=== PATIENT | male | born 1940 | race Caucasian/White ===

== ENCOUNTER 2019-07-07 10:26 | Outpatient (CLI) | payer MEDICARE, SELFPAY ==
--- NOTE | ~2019-07-07 | CT_ITS ---
EXAMINATION: CT abdomen pelvis wo con DATE: 07/07/2019 10:59 INDICATION: Dysuria. TECHNIQUE: Computed tomography (CT) of the abdomen and pelvis was performed without intravenous contr ast. Automated exposure control and iterative reconstruction technique were employed. The dose-length product was 459.56 mGy-cm. COMPARISON: CT abdomen and pelvis 10/08/2018 FINDINGS: The visualized portions of the lung bases demonstrate mild atelectasis. There is a pneumato chris in right middle lobe. A calcified right lung nodule is consistent with old granulomatous disease . No pleural effusion. There is a small sliding hiatal hernia. The heart size is normal. There are co ronary artery calcifications. There are pacer wires in right atrium and right ventricle. No pericardi al effusion. The liver, spleen, gallbladder, pancreas, adrenal glands, and right kidney are normal. T here is cortical thinning of left kidney. There is a 3 mm stone in left kidney. There are no dilated loops of bowel. The appendix is normal. There is diverticulosis of the colon without evidence of dive rticulitis. There are no pathologically enlarged lymph nodes. There is no free intraperitoneal fluid. There is severe lower lumbar spondylosis. There are chronic burst fractures of T7 and T8. IMPRESSION: 1. 3 mm nonobstructing left kidney stone. 2. Small sliding hiatal hernia. Reviewed, dictated and finalized at location B. 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
[2019-07-07 16:03] LABS: Basophils Absolute Auto 0.02 K/mm3 (0.00-0.10); Basophils Percent Auto 0.3 % (0.0-1.0); Eosinophils Percent Auto 1.3 % (1.0-6.0); Hematocrit 44.1 % (37.0-46.0); Hemoglobin 14.9 g/dL (12.4-15.3); Immature Granulocyte Absolute 0.03 K/mm3 (0.00-0.00); Immature Granulocyte Percent A 0.4 % (0.0-0.0); Lymphocytes Percent Auto 23.8 % (18.0-42.0); Mean Corpuscular HGB Conc 33.8 g/dL (32.0-36.0); Mean Corpuscular Hemoglobin 31.2 pg (27.0-31.0); Mean Corpuscular Volume 92.3 fL (78.0-102.0); Mean Platelet Volume 9.4 fl (8.7-11.0); Monocytes Absolute Auto 0.75 K/mm3 (0.10-0.90); Monocytes Percent Auto 9.4 % (2.0-11.0); Neutrophils Absolute Auto 5.2 K/mm3 (1.7-7.2); Neutrophils Percent Auto 64.8 % (50.0-70.0); Platelet Count Result 119 K/mm3 (150-420); Red Blood Count 4.78 M/mm3 (4.70-6.10); Red Cell Distribution Width 12.3 % (11.6-14.4)
[2019-07-07 19:09] LABS: Prostate Specific Antigen 0.5 ng/mL (< OR = 4.0)
== END 2019-07-07 10:27 | disposition home or self-care (01) ==
PROVIDERS: Visit Provider Nurse Practitioner Family
DX: R30.0 Dysuria (principal); N20.0 Calculus of kidney; Z87.442 Personal history of urinary calculi; N40.1 Benign prostatic hyperplasia with lower urinary tract symptoms
CPT/HCPCS: 36415; 74176; 84153; 85025; 87491; 87591

== ENCOUNTER 2019-10-26 07:16 | Outpatient (RCR) | payer MEDICARE, SELFPAY ==
[2019-08-31 07:27] LABS: INR 2.5; Prothrombin Time 26.3 Seconds (9.64-11.0)
[2019-09-28 07:26] LABS: INR 2.9; Prothrombin Time 28.5 Seconds (9.64-11.0)
[2019-10-26 07:38] LABS: INR 2.3; Prothrombin Time 23.6 Seconds (9.64-11.0)
== END 2019-11-29 23:59 | disposition home or self-care (01) ==
LOC: CHSLAB 07:16
PROVIDERS: PCP Internal Medicine; Visit Provider Internal Medicine
DX: Z79.01 Long term (current) use of anticoagulants (principal)
CPT/HCPCS: 36415; 85610

== ENCOUNTER 2019-12-01 07:37 | Outpatient (RCR) | payer MEDICARE, SELFPAY ==
[2019-12-01 07:59] LABS: INR 3.3; Prothrombin Time 32.6 Seconds (9.64-11.0)
== END 2020-02-29 23:59 | disposition home or self-care (01) ==
LOC: CHSLAB 07:37
PROVIDERS: PCP Internal Medicine; Visit Provider Internal Medicine
DX: Z79.01 Long term (current) use of anticoagulants (principal)
CPT/HCPCS: 36415; 85610

== ENCOUNTER 2020-01-12 07:12 | Outpatient (CLI) | payer MEDICARE, SELFPAY ==
[2020-01-12 07:27] LABS: Add Urine Microscopic? NO; Appearance Urine Clear (Clear); Basophils Absolute Auto 0.03 K/mm3 (0.00-0.10); Basophils Percent Auto 0.5 % (0.0-1.0); Bilirubin Urine Negative (Negative); Blood Urine Negative (Negative); Color Urine Yellow (Yellow); Eosinophils Absolute Auto 0.16 K/mm3 (0.02-0.50); Eosinophils Percent Auto 2.6 % (1.0-6.0); Glucose Urine UA Negative (Negative); Hematocrit 45.5 % (37.0-46.0); Hemoglobin 15.3 g/dL (12.4-15.3); Immature Granulocyte Absolute 0.03 K/mm3 (0.00-0.00); Immature Granulocyte Percent A 0.5 % (0.0-0.0); Ketones Urine Negative (Negative); Leukocyte Esterase Ur Negative LEU/UL (Negative); Lymphocytes Absolute Auto 1.27 K/mm3 (1.10-4.50); Lymphocytes Percent Auto 20.9 % (18.0-42.0); Mean Corpuscular HGB Conc 33.6 g/dL (32.0-36.0); Mean Corpuscular Hemoglobin 31.4 pg (27.0-31.0); Mean Corpuscular Volume 93.2 fL (78.0-102.0); Monocytes Absolute Auto 0.62 K/mm3 (0.10-0.90); Monocytes Percent Auto 10.2 % (2.0-11.0); Neutrophils Percent Auto 65.3 % (50.0-70.0); Nitrate Urine Negative (Negative); Platelet Count Result 121 K/mm3 (150-420); Protein Urine Negative (Negative); Red Blood Count 4.88 M/mm3 (4.70-6.10); Red Cell Distribution Width 12.8 % (11.6-14.4); Specific Grav Ur 1.015 (1.010-1.020); Urobilinogen Urine 0.2 mg/dL (0.2-1.0); White Blood Count 6.1 K/mm3 (4.8-10.8)
[2020-01-12 07:36] LABS: Hemoglobin A1C 5.8 % (<5.7)
[2020-01-12 07:38] LABS: INR 3.4; Prothrombin Time 33.6 Seconds (9.64-11.0)
[2020-01-12 08:28] LABS: Alanine Aminotransferase 28 U/L (16-63); Albumin Level 3.7 g/dL (3.4-5.0); Alkaline Phosphatase 85 U/L (46-116); Anion Gap 14.3 mmol/L (7-16); Aspartate Amino Transferase 23 U/L (15-37); Bilirubin,Total 0.5 mg/dL (0.00-1.00); Blood Urea Nitrogen 23 mg/dL (7-18); Calcium 8.6 mg/dL (8.5-10.1); Carbon Dioxide 27 mmol/L (21-32); Chloride 107 mmol/L (98-108); Cholesterol 160 mg/dL (0-200); Creatine Kinase 93 U/L (39-308); Estimated Glomerular Filt Rate 55; Glucose 112 mg/dL (70-99); HDL Direct 36 mg/dL (40-60); LDL Cholesterol Calculated 99 mg/dL (<130); Osmolality Calculated 302 mOsm/kg (285-295); Potassium 4.3 mmol/L (3.5-5.1); Sodium 144 mmol/L (136-145); Total Protein 6.5 g/dL (6.4-8.2); Triglycerides 126 mg/dL (0-150)
== END 2020-01-12 07:13 | disposition home or self-care (01) ==
LOC: CHSLAB 07:15
PROVIDERS: PCP Internal Medicine; Visit Provider Internal Medicine
DX: Z79.01 Long term (current) use of anticoagulants (principal); R73.01 Impaired fasting glucose; I10 Essential (primary) hypertension; E78.2 Mixed hyperlipidemia
CPT/HCPCS: 36415; 80053; 80061; 81003; 82550; 83036; 85025; 85610

== ENCOUNTER 2020-02-02 07:12 | Outpatient (CLI) | payer MEDICARE, SELFPAY ==
[2020-02-02 07:28] LABS: Basophils Absolute Auto 0.02 K/mm3 (0.00-0.10); Basophils Percent Auto 0.3 % (0.0-1.0); Eosinophils Absolute Auto 0.09 K/mm3 (0.02-0.50); Eosinophils Percent Auto 1.5 % (1.0-6.0); Hematocrit 43.9 % (37.0-46.0); Hemoglobin 14.6 g/dL (12.4-15.3); Immature Granulocyte Absolute 0.02 K/mm3 (0.00-0.00); Immature Granulocyte Percent A 0.3 % (0.0-0.0); Lymphocytes Absolute Auto 1.82 K/mm3 (1.10-4.50); Mean Corpuscular HGB Conc 33.3 g/dL (32.0-36.0); Mean Corpuscular Hemoglobin 31.3 pg (27.0-31.0); Monocytes Absolute Auto 0.69 K/mm3 (0.10-0.90); Monocytes Percent Auto 11.4 % (2.0-11.0); Neutrophils Absolute Auto 3.4 K/mm3 (1.7-7.2); Neutrophils Percent Auto 56.5 % (50.0-70.0); Platelet Count Result 131 K/mm3 (150-420); Red Blood Count 4.67 M/mm3 (4.70-6.10); Red Cell Distribution Width 12.9 % (11.6-14.4); White Blood Count 6.1 K/mm3 (4.8-10.8)
[2020-02-02 07:39] LABS: INR 3.2; Prothrombin Time 31.3 Seconds (9.64-11.0)
== END 2020-02-02 07:13 | disposition home or self-care (01) ==
PROVIDERS: PCP Internal Medicine; Visit Provider Internal Medicine Hematology & Oncology
DX: Z79.01 Long term (current) use of anticoagulants (principal); D69.3 Immune thrombocytopenic purpura
CPT/HCPCS: 36415; 85025; 85610

== ENCOUNTER 2020-02-20 08:54 | Outpatient (CLI) | payer MEDICARE, SELFPAY ==
[2020-02-20 09:07] LABS: Basophils Absolute Auto 0.02 K/mm3 (0.00-0.10); Basophils Percent Auto 0.3 % (0.0-1.0); Eosinophils Absolute Auto 0.16 K/mm3 (0.02-0.50); Eosinophils Percent Auto 2.1 % (1.0-6.0); Hematocrit 42.6 % (37.0-46.0); Hemoglobin 14.4 g/dL (12.4-15.3); Immature Granulocyte Absolute 0.04 K/mm3 (0.00-0.00); Immature Granulocyte Percent A 0.5 % (0.0-0.0); Lymphocytes Absolute Auto 1.67 K/mm3 (1.10-4.50); Lymphocytes Percent Auto 22.4 % (18.0-42.0); Mean Corpuscular HGB Conc 33.8 g/dL (32.0-36.0); Mean Corpuscular Hemoglobin 31.7 pg (27.0-31.0); Mean Corpuscular Volume 93.8 fL (78.0-102.0); Mean Platelet Volume 9.2 fl (8.7-11.0); Monocytes Absolute Auto 0.69 K/mm3 (0.10-0.90); Monocytes Percent Auto 9.2 % (2.0-11.0); Neutrophils Absolute Auto 4.9 K/mm3 (1.7-7.2); Neutrophils Percent Auto 65.5 % (50.0-70.0); Platelet Count Result 127 K/mm3 (150-420); Red Blood Count 4.54 M/mm3 (4.70-6.10); Red Cell Distribution Width 12.8 % (11.6-14.4); White Blood Count 7.5 K/mm3 (4.8-10.8)
== END 2020-02-20 08:55 | disposition home or self-care (01) ==
LOC: CHSLAB 08:56
PROVIDERS: PCP Internal Medicine; Visit Provider Internal Medicine Cardiovascular Disease
DX: D69.3 Immune thrombocytopenic purpura (principal); Z01.810 Encounter for preprocedural cardiovascular examination
CPT/HCPCS: 36415; 85025

== ENCOUNTER 2020-02-28 01:56 | Outpatient (CLI) | payer MEDICARE, SELFPAY ==
[2020-02-28 22:44] LABS: SARS-CoV-2 RNA PCR Negative
== END 2020-02-28 01:57 | disposition home or self-care (01) ==
LOC: ANHCOVIDDT 01:56
PROVIDERS: PCP Internal Medicine; Visit Provider Internal Medicine Cardiovascular Disease
DX: Z01.812 Encounter for preprocedural laboratory examination (principal); Z11.59 Encounter for screening for other viral diseases
CPT/HCPCS: 87635; C9803; U0003

== ENCOUNTER 2020-03-01 05:31 | Day surgery (SDC) | payer MEDICARE, SELFPAY ==
[2020-02-29 14:37] VITALS: BMI 28.5
--- NOTE | 2020-03-01 09:35 | SUR.PREOP ---
ARRIVES AMBULATORY W/ BROTHER AT SIDE TO [facility] 4 FOR SCHEDULED PPM GENERATOR CHANGE OUT W/ DR. CARUSO. DENIES PAIN OR SOB ON ARRIVAL. A&OX3. STEADY GAIT. ORIENTED TO ROOM, PLAN OF CARE, PROCEDURE, MODERATE SEDATION. QUESTIONS ANSWERED. IV STARTED, LABS SENT, VS OBTAINED, CONSENT SIGNED, CHEST PREP COMPLETED. CURRENT PPM GENERATOR IS IN L. UPPER CHEST. STATES LAST DOSE OF COUMADIN 4.5MG WAS ON 02/25/20. WILL CONTINUE TO MONITOR.
[2020-03-01 09:45] VITALS: BP 163/103; PULSE 60; RESP 16; TEMP 36.4; O2SAT 97
[2020-03-01 10:05] LABS: Basophils Percent Auto 0.3 % (0.2-1.2); Eosinophils Absolute Auto 0.1 K/mm3 (0-0.3); Eosinophils Percent Auto 1.1 % (0-4.4); Hematocrit 44.1 % (42.0-52.0); Hemoglobin 15.1 g/dL (14.0-18.0); Immature Granulocyte Absolute 0.03 K/mm3 (0.00-0.031); Immature Granulocyte Percent A 0.4 % (0-0.5); Lymphocytes Absolute Auto 1.52 K/mm3 (0.9-3.2); Lymphocytes Percent Auto 20.5 % (18.3-44.2); Mean Corpuscular HGB Conc 34.2 g/dl (32-36); Mean Corpuscular Hemoglobin 31.9 pg (26-34); Mean Corpuscular Volume 93.2 fl (80-100); Mean Platelet Volume 9.3 fl (7.4-10.4); Monocytes Absolute Auto 0.7 K/mm3 (0.1-0.6); Monocytes Percent Auto 9.4 % (2.6-8.5); Neutrophils Absolute Auto 5.1 K/mm3 (1.3-6.7); Neutrophils Percent Auto 68.3 % (45.5-73.1); Platelet Count Result 127 k/mm3 (150-375); Red Blood Count 4.73 M/mm3 (4.6-6.20); Red Cell Distribution Width 12.7 % (11.5-14.5); White Blood Count 7.4 K/mm3 (4.5-10.0)
[2020-03-01 10:14] LABS: INR 1.4; Prothrombin Time 16.5 Seconds (11.1-14.7)
--- NOTE | 2020-03-01 10:21 | PM.IMHP ---
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 His pulse generator has reached NASH here for generator change. Last dose of warfarin was on the . He is here with his brother Vinh. 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 Review of Systems Constitutional: Constitutional: Denies chills and Denies lethargy ENT: Denies Normal hearing present (Mildly hard of hearing) Cardiovascular: Cardiovascular: Denies chest pain, Denies pedal edema, Denies leg edema, Denies lightheadedness and Denies palpitations Respiratory: Respiratory: Denies chest congestion, Denies cough, Denies dyspnea and Denies dyspnea on exertion Gastrointestinal: Gastrointestinal: Denies abdominal pain Musculoskeletal: Musculoskeletal: Reports no additional musculoskeletal complaints Integumentary/Breasts: Skin/Breast: Denies rash Neurologic: Denies confusion and Denies vertigo Psychiatric: Psychiatric: Reports no additional psychiatric complaints [facility] Past Medical History Medical History (Updated 03/01/20 @ 10:26 by Abi Bender MD) Cardiomyopathy 03/2019 EF 40% by echo Complete heart block [employer] pacemaker 2009 CVA (cerebral vascular accident) History of TIA, then CVA 07/2018, treated with warfarin Hyperlipidemia Pacemaker 2009 [employer] pacemaker, 2020 generator change Pre-diabetes Seizure Thrombocytopenia Has ITP treated by MAVERICK Santos in [facility], previously on Retuxin Family History Family History (Updated 03/01/20 @ 10:28 by Abi Bender MD) Mother Heart disease Father Cancer Social History Social History (Updated 03/01/20 @ 10:29 by Abi Bender MD) Social History: 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 No alcohol or tobacco use for a couple of decades. Has a brother to me is close named Vinh. Smoking status: Former smoker Second hand tobacco smoke exposure: Yes Alcohol intake: former Substance use: never Last use: 1975 Living arrangements: alone Gender identity (if verbalized by the patient): Male Spiritual care concerns: No Meds Home Medications and Allergies Home Medications Medication Instructions Recorded Confirmed Type brimonidine 1 drp OPHTHALMIC (EYE) Q8H 02/29/20 02/29/20 History finasteride [Proscar] 5 mg PO DAILY 02/29/20 02/29/20 History latanoprost [Xalatan] 1 drp OPHTHALMIC (EYE) BID 02/29/20 02/29/20 History simvastatin [Zocor] 20 mg PO QPM 02/29/20 02/29/20 History terazosin 5 mg PO HS 02/29/20 02/29/20 History timolol 1 drp OPHTHALMIC (EYE) DAILY 02/29/20 02/29/20 History warfarin 4.5 mg PO DAILY 02/29/20 02/29/20 History Allergies Allergy/AdvReac Type Severity Reaction Status Date / Time No Known Allergies Verified 06/04/10 18:57 Vital Signs Vital Signs - 24 hr 03/01/20 09:45 Temperature 97.5 F L Pulse Rate 60 Respiratory Rate 16 Blood Pressure 163/103 H Pulse Oximetry 97 Exam Narrative: Exam Narrative: Older male who is rather quiet, no distress Const: General: comfortable and no acute distress HENMT: General nose exam: no epistaxis Mouth: Yes moist mucous membranes Eyes: EOM: EOMs intact bilaterally Neck: Neck: supple Thyroid: thyroid normal Resp: Effort & Inspection: normal respiratory effort Auscultation: clear to auscultation bilaterally Cardio: Rate: regular rate Rhythm: regular rhythm Heart sounds: no murmurs GI: Inspection: non-distended GI Palp: Yes Soft to palpation and No Tenderness to palpation present (GI) Skin: General skin exam: normal color Other: Pacemaker incision is well-healed Neuro: Speech: normal speech Motor ex
[2020-03-01 10:22] LABS: Blood Urea Nitrogen 17 mg/dL (9-20); Calcium 8.8 mg/dL (8.4-10.2); Carbon Dioxide 25 mmol/L (22-30); Chloride 109 mmol/L (98-107); Estimated CRCL calculation 55 ml/min; Estimated Glomerular Filt Rate > 60; Glucose 104 mg/dL (75-110); Potassium 4.2 mmol/L (3.4-5.0); Sodium 142 mmol/L (137-145)
--- NOTE | 2020-03-01 10:30 | SUR.PREOP ---
DR. CARUSO AND PACER REP TO BEDSIDE TO SEE PT.
--- NOTE | 2020-03-01 10:34 | WPDMODSED ---
Moderate Sedation Note-Pt Data Patient Data Diagnosis: Pacemaker at NASH [employer] pacemaker implant in 2009 Complete heart block Present Complaint: Pacemaker NASH Procedure to be performed/Plan: Conscious sedation generator change Allergies Allergy/AdvReac Type Severity Reaction Status Date / Time No Known Allergies Verified 06/04/10 18:57 Home Medications Medication Instructions Recorded Confirmed Type brimonidine 1 drp OPHTHALMIC (EYE) Q8H 02/29/20 02/29/20 History finasteride [Proscar] 5 mg PO DAILY 02/29/20 02/29/20 History latanoprost [Xalatan] 1 drp OPHTHALMIC (EYE) BID 02/29/20 02/29/20 History simvastatin [Zocor] 20 mg PO QPM 02/29/20 02/29/20 History terazosin 5 mg PO HS 02/29/20 02/29/20 History timolol 1 drp OPHTHALMIC (EYE) DAILY 02/29/20 02/29/20 History warfarin 4.5 mg PO DAILY 02/29/20 02/29/20 History Sedation/Anesthesia: No previous sedation/anesthesia problems (including family history). [facility] Past Medical History Medical History (Updated 03/01/20 @ 10:26 by Abi Bender MD) Cardiomyopathy 03/2019 EF 40% by echo Complete heart block [employer] pacemaker 2009 CVA (cerebral vascular accident) History of TIA, then CVA 07/2018, treated with warfarin Hyperlipidemia Pacemaker 2009 [employer] pacemaker, 2020 generator change Pre-diabetes Seizure Thrombocytopenia Has ITP treated by MAVERICK Santos in [facility], previously on Retuxin Family History Family History (Updated 03/01/20 @ 10:28 by Abi Bender MD) Mother Heart disease Father Cancer Social History Social History (Updated 03/01/20 @ 10:29 by Abi Bender MD) Social History: 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 No alcohol or tobacco use for a couple of decades. Has a brother to me is close named Vinh. Smoking status: Former smoker Second hand tobacco smoke exposure: Yes Alcohol intake: former Substance use: never Last use: 1975 Living arrangements: alone Gender identity (if verbalized by the patient): Male Spiritual care concerns: No Mod Sed Physical Exam Physical Exam Pre Procedural Exam: Normal: Appearance, Eyes, Ears, Nose, Neck, Throat, Airway, Lungs, Heart Size, Heart Rate, Heart Rhythm, Neuro Exam, Abdomen, Liver, Spleen, Extremities and Skin (Pacer incision is well-healed) Hours since solid foods: 12 Hours since liquid intake: 12 Internal Medicine - PN: Obj Da Vital Signs Vital Signs: Vital Signs - 24 hr 03/01/20 09:45 Temperature 97.5 F L Pulse Rate 60 Respiratory Rate 16 Blood Pressure 163/103 H Pulse Oximetry 97 Intake/Output Intake/Output: Intake & Output 02/27/20 02/28/20 02/29/20 03/01/20 23:59 23:59 23:59 23:59 Intake Total 0 Output Total 0 Balance 0 Labs CBC & Chem 7: 03/01/20 09:57 03/01/20 09:57 Labs: Laboratory Results - last 24 hr 03/01/20 03/01/20 03/01/20 09:57 09:57 09:57 WBC 7.4 RBC 4.73 Hgb 15.1 Hct 44.1 MCV 93.2 MCH 31.9 MCHC 34.2 RDW 12.7 Plt Count 127 L MPV 9.3 Immature Gran % (Auto) 0.4 Neut % (Auto) 68.3 Lymph % (Auto) 20.5 [place] % (Auto) 9.4 H Eos % (Auto) 1.1 Baso % (Auto) 0.3 Lymph # (Auto) 1.52 [place] # (Auto) 0.7 H Eos # (Auto) 0.1 Baso # (Auto) 0.0 Abs Immat Gran (auto) 0.03 Absolute Neuts (auto) 5.1 Absolute Nucleated RBC 0.0 Nucleated RBC % 0.0 PT 16.5 H INR 1.4 Sodium 142 Potassium 4.2 Chloride 109 H Carbon Dioxide 25 BUN 17 Creatinine 1.00 Estim Creat Clear Calc 55 Estimated GFR > 60 Glucose 104 Calcium 8.8 ASA Classification/Sedation ASA Classification/Sedation ASA Class: III Risks: Risks, benefits and alternatives explained and patient/family accepted plan for sedation. Reviewed risks of infection, bleeding problems, conscious sedation, bleeding etc. with patient and his brother Vinh. Patient re-ev
--- NOTE | 2020-03-01 12:00 | SUR.PREOP ---
PT'S PROCEDURE HAS BEEN DELAYED DUE TO INCREASED LENGTH OF PROCEDURE SCHEDULED BEFORE HIS. THIS EXPLAINED TO PT AND HIS BROTHER. BOTH VOICED UNDERSTANDING. NO NEW CHANGES NOTED.
--- NOTE | 2020-03-01 14:18 | PM.PROC ---
Procedure Note - Detailed Date of procedure: 03/01/20 Pre-op diagnosis: battery ert Post-op diagnosis: same Procedure performed: Conscious sedation Generator change Description of procedure: PROCEDURE: Concious sedation Generator change UNDERLYING RHYTHM: asystole CONSCIOUS SEDATION: Assessment: The patient has no history of anesthesia problems. The oropharynx is clear. The patient was deemed to be a good candidate for conscious sedation. The patient had continuous hemodynamic and oximetric monitoring during the procedure. Start time: 1329 Completion time: 14 13 Total conscious sedation time: 44 minutes Medications: Versed 2 mg, fentanyl 50 mcg IV push Trained observer: Cindi Navarro RN Outcome: The patient tolerated the procedure well with no complications. PROCEDURE: After informed consent, the patient is brought to the liaison inspection laboratory assistant and the left prepectoral area was prepped and draped in usual fashion. the patient is pacemaker.The patient was given a prophylactic antibiotic intravenously with Ancef. After conscious sedation as described above, the area was anesthetized with 1% lidocaine. A skin incision is made with the Plasma Blade and carried down to the pacing capsule which was also incised. Hemostasis is obtained using the Plasma Blade. The lead/s was/were freed from the underlying capsule and the pulse generator was delivered from the pocket. The lead/s was/were disconnected from the existing device and reconnected to the new device. A gentle tug could not remove it/them. The device and lead/s was/were interrogated and found to be functioning appropriately. The area was copiously irrigated with antibiotic-containing solution. The device was replaced in the pocket. The subcutaneous tissues were closed in a two-layer fashion with interrupted 2 0 Vicryl sutures and the skin was closed in a continuous fashion using 4 0 Vicryl. The area was cleansed, an Aquacel dressing applied. The patient tolerated the procedure well with no complications. Estimated blood loss was negligible. DEVICE INFORMATION: New pulse generator: [employer], model number L111, serial [id number] Existing right atrial lead: [employer] model 4135, serial [id number] Existing right ventricular lead: Guidant model 4136, serial [id number] Explanted device: [employer] [id number] serial [id number] THRESHOLD INFORMATION: Right atrium P-waves 4.8 mV, impedance 475 Ohms, threshold 0.7 volts at 0.4 millisecond Right ventricular lead: No R waves sensed, impedance 492 Ohms, threshold 1.2 volts at 0.4 Programmed parameters: DDDR 60/130 PROGRAMMED PARAMETERS: Anesthesia: local (with conscious sedation) Surgeon: Abi Bender MD Estimated blood loss (mL): 5 Drains: No Packing: No Pathology: none sent Complications: No immediate complications Condition: stable Disposition: observation Findings: Patient is pacemaker dependent; underlying rhythm is asystole
[2020-03-01 14:30] VITALS: BP 170/85; PULSE 60; RESP 18; TEMP 36.2; O2SAT 98
--- NOTE | 2020-03-01 14:30 | SUR.PHASEII ---
Patient returns to [facility] room 4, status post ppm generator change at 1447. Aquacel dressing intact to L chest with pressure dressing in place. L radial pulse strong, sensation and movement intact. Paced rhythm on telemetry. Denies pain. Brother at bedside. Device regional sales representative at bedside discussing device with patient. Patient updated on plan of care and verbalizes understanding.Will continue to monitor.
[2020-03-01 14:45] VITALS: BP 152/83; PULSE 60; RESP 14; TEMP 36.2; O2SAT 97
[2020-03-01 15:00] VITALS: BP 160/86; PULSE 60; RESP 12; O2SAT 97
[2020-03-01 15:15] VITALS: BP 154/88; PULSE 60; RESP 16; O2SAT 97
[2020-03-01 15:30] VITALS: BP 160/95; PULSE 60; RESP 16; TEMP 36.4; O2SAT 98
--- NOTE | 2020-03-01 16:10 | SUR.PHASEII ---
VERIFIED PT. TO LEAVE PRESSURE DRESSING ON OVERTOP OF AQUACELL DRESSING UNTIL TOMORROW AM (PER DEBORAH MONSON ELECTRICAL POWER STATION TECHNICIAN). PT. UP OUT OF BED. STEADY GAIT. VOIDED. NO NEW CHANGE NOTED IN L. UPPER CHEST GENERATOR CHANGE SITE. DRESSING C/D/I. NO BRUISING OR EDEMA NOTED. NO BLEEDING NOTED. L. HAND WNL SENSATION AND MOVEMENT. L. RADIAL PULSE STRONG. GOOD CAPILLARY REFILL TO L. FINGERS. REVIEWED ACTIVITY RESTRICTIONS FOR L. ARM POST GENERATOR CHANGE. VOICED UNDERSTANDING. IV SITE DISCONTINUED. DRESSING FOR DISCHARGE HOME.
--- NOTE | 2020-03-01 16:30 | SUR.PHASEII ---
END PHASE II RECOVERY. ALL DISCHARGE INSTRUCTIONS, WOUND CARE, FOLLOW UP CARE, ANTIBIOTIC INSTRUCTIONS GIVEN AND DISCUSSED W/ PT. ALL QUESTIONS ANSWERED. VOICED UNDERSTANDING OF ALL. L. UPPER CHEST DRESING C/D/I. L. RADIAL PULSE STRONG. DISCHARGED HOME, OUT VIA WC W/ ALL PERSONAL BELONGINGS, PACEMAKER EQUIPMENT, DISCHARGE PACKET TO BROTHER'S WAITING CAR.
== END 2020-03-01 16:30 | disposition home or self-care (01) ==
PROVIDERS: PCP Internal Medicine; Visit Provider Internal Medicine Cardiovascular Disease
PROC: 0JPT0PZ Removal of Cardiac Rhythm Related Device from Trunk Subcutaneous Tissue and Fascia, Open Approach (ICD-10-PCS; CPT 33228; principal; 2020-03-01 11:30)
DX: Z45.010 Encounter for checking and testing of cardiac pacemaker pulse generator [battery] (principal); I42.9 Cardiomyopathy, unspecified; I44.2 Atrioventricular block, complete; E78.5 Hyperlipidemia, unspecified; R73.03 Prediabetes; D69.6 Thrombocytopenia, unspecified; Z86.73 Personal history of transient ischemic attack (TIA), and cerebral infarction without residual deficits; Z79.01 Long term (current) use of anticoagulants; Z87.891 Personal history of nicotine dependence
CPT/HCPCS: 33213; 36415; 80048; 85025; 85610; C1785; J0690; J2250; J3010; J7040

== ENCOUNTER 2020-03-08 07:02 | Outpatient (CLI) | payer MEDICARE, SELFPAY ==
[2020-03-08 07:28] LABS: INR 1.9
== END 2020-03-08 07:03 | disposition home or self-care (01) ==
LOC: CHSLAB 07:04
PROVIDERS: PCP Internal Medicine; Visit Provider Nurse Practitioner Adult Health
DX: Z79.01 Long term (current) use of anticoagulants (principal)
CPT/HCPCS: 36415; 85610

== ENCOUNTER 2020-04-05 07:05 | Outpatient (CLI) | payer MEDICARE, SELFPAY ==
[2020-04-05 07:28] LABS: Hemoglobin 14.6 g/dL (12.4-15.3); Mean Corpuscular HGB Conc 32.4 g/dL (32.0-36.0); Mean Corpuscular Volume 95.5 fL (78.0-102.0); Mean Platelet Volume 9.4 fl (8.7-11.0); Platelet Count Result 131 K/mm3 (150-420); Red Blood Count 4.71 M/mm3 (4.70-6.10); Red Cell Distribution Width 12.5 % (11.6-14.4); White Blood Count 6.7 K/mm3 (4.8-10.8)
[2020-04-05 07:40] LABS: INR 3.6; Prothrombin Time 35.6 Seconds (9.64-11.0)
== END 2020-04-05 07:06 | disposition home or self-care (01) ==
PROVIDERS: PCP Internal Medicine; Visit Provider Internal Medicine Cardiovascular Disease
DX: R42 Dizziness and giddiness (principal); Z79.01 Long term (current) use of anticoagulants
CPT/HCPCS: 36415; 85027; 85610

== ENCOUNTER 2020-05-07 07:09 | Outpatient (CLI) | payer MEDICARE, SELFPAY ==
[2020-05-07 07:35] LABS: INR 3.3
== END 2020-05-07 07:10 | disposition home or self-care (01) ==
LOC: CHSLAB 07:10
PROVIDERS: PCP Internal Medicine; Visit Provider Internal Medicine
DX: Z79.01 Long term (current) use of anticoagulants (principal)
CPT/HCPCS: 36415; 85610

== ENCOUNTER 2020-07-24 07:05 | Outpatient (CLI) | payer MEDICARE, SELFPAY ==
[2020-07-24 07:27] LABS: Basophils Absolute Auto 0.03 K/mm3 (0.00-0.10); Basophils Percent Auto 0.4 % (0.0-1.0); Eosinophils Absolute Auto 0.11 K/mm3 (0.02-0.50); Eosinophils Percent Auto 1.5 % (1.0-6.0); Hematocrit 45.4 % (37.0-46.0); Immature Granulocyte Absolute 0.03 K/mm3 (0.00-0.00); Immature Granulocyte Percent A 0.4 % (0.0-0.0); Lymphocytes Absolute Auto 1.62 K/mm3 (1.10-4.50); Lymphocytes Percent Auto 21.6 % (18.0-42.0); Mean Corpuscular Hemoglobin 31.2 pg (27.0-31.0); Mean Corpuscular Volume 94.4 fL (78.0-102.0); Mean Platelet Volume 9.4 fl (8.7-11.0); Monocytes Percent Auto 9.3 % (2.0-11.0); Neutrophils Percent Auto 66.8 % (50.0-70.0); Platelet Count Result 133 K/mm3 (150-420); Red Blood Count 4.81 M/mm3 (4.70-6.10); Red Cell Distribution Width 12.9 % (11.6-14.4); White Blood Count 7.5 K/mm3 (4.8-10.8)
[2020-07-24 07:29] LABS: Add Urine Microscopic? NO; Appearance Urine Clear (Clear); Bilirubin Urine Negative (Negative); Blood Urine Negative (Negative); Color Urine Yellow (Yellow); Glucose Urine UA Negative (Negative); Ketones Urine Negative (Negative); Leukocyte Esterase Ur Negative (Negative); Nitrate Urine Negative (Negative); Protein Urine Negative (Negative); Urobilinogen Urine 0.2 mg/dL (0.2-1.0)
[2020-07-24 07:47] LABS: Hemoglobin A1C 5.4 % (<5.7)
[2020-07-24 07:55] LABS: INR 2.8; Prothrombin Time 29.3 Seconds (9.50-12.10)
[2020-07-24 07:57] LABS: Alanine Aminotransferase 27 U/L (16-63); Alkaline Phosphatase 75 U/L (46-116); Anion Gap 11 mmol/L (8-16); Aspartate Amino Transferase 20 U/L (15-37); Bilirubin,Total 0.5 mg/dL (0.00-1.00); Blood Urea Nitrogen 23 mg/dL (7-18); Carbon Dioxide 26 mmol/L (21-32); Chloride 107 mmol/L (98-108); Cholesterol 173 mg/dL (0-200); Creatine Kinase 90 U/L (39-308); Estimated Glomerular Filt Rate 55; Glucose 106 mg/dL (70-99); HDL Direct 38 mg/dL (40-60); LDL Cholesterol Calculated 114 mg/dL (<130); Osmolality Calculated 301 mOsm/kg (285-295); Potassium 3.9 mmol/L (3.5-5.1); Sodium 144 mmol/L (136-145); Triglycerides 105 mg/dL (0-150)
== END 2020-07-24 07:06 | disposition home or self-care (01) ==
LOC: CHSLAB 07:09
PROVIDERS: PCP Internal Medicine; Visit Provider Internal Medicine
DX: R73.01 Impaired fasting glucose (principal); I10 Essential (primary) hypertension; E78.2 Mixed hyperlipidemia; D69.6 Thrombocytopenia, unspecified; Z79.01 Long term (current) use of anticoagulants
CPT/HCPCS: 36415; 80053; 80061; 81003; 82550; 83036; 85025; 85610

== ENCOUNTER 2020-08-28 12:13 | Outpatient (CLI) | payer MEDICARE, SELFPAY ==
--- NOTE | ~2020-08-28 | CT_ITS ---
EXAMINATION: CT brain wo con EXAM DATE: 08/28/2020 12:42 INDICATION: Seizure disorder. Cognitive thinking issues recently w/ dizziness. TECHNIQUE: Spiral CT of the head was performed without contrast. Axial, coronal and sagittal images were reviewed. The dose-length product (DLP) for this examination was 605.33 mGy-cm. The exposure w as tailored according to patient size, and iterative reconstruction (ASIR) was used as additional dos e reduction technique. Comparison is made to prior examination from 07/30/2018. FINDINGS: There is no acute intraparenchymal hemorrhage. No evidence of intraparenchymal brain mass lesion. No evidence of acute infarction. Please note that initial head CT has limited sensitivity f or small or acute infarctions. There is old small left frontal and left occipital lobe infarctions. Small old right occipital lobe infarction. There is mild periventricular and subcortical hypodensity , nonspecific but probably related to small vessel ischemic disease. There is moderate prominence o f the sulci and ventricles related to cerebral atrophy. 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 There are no extra-axial collections. There is no mass effect or midline shift. The orbits ar e unremarkable. Soft tissue is unremarkable. Right mastoidectomy. There is no significant interval change. IMPRESSION: 1. No acute intracranial findings. 2. Chronic age related findings. 3. Old small cortical infarctions. Reviewed, dictated and finalized at location B. CY OWNER
== END 2020-08-28 12:14 | disposition home or self-care (01) ==
LOC: CHSIMG 12:15
PROVIDERS: PCP Internal Medicine; Visit Provider Internal Medicine
DX: G40.909 Epilepsy, unspecified, not intractable, without status epilepticus (principal)
CPT/HCPCS: 36415; 70450; 85610

== ENCOUNTER 2020-08-28 12:40 | Outpatient (RCR) | payer MEDICARE, SELFPAY ==
[2020-06-06 07:42] LABS: INR 2.8; Prothrombin Time 27.9 Seconds (9.64-11.0)
[2020-07-04 07:53] LABS: INR 3.7; Prothrombin Time 36.8 Seconds (9.64-11.0)
[2020-08-28 13:05] LABS: INR 2.6; Prothrombin Time 27.2 Seconds (9.50-12.10)
== END 2020-09-04 23:59 | disposition home or self-care (01) ==
LOC: CHSLAB 12:40
PROVIDERS: PCP Internal Medicine; Visit Provider Internal Medicine
DX: Z79.01 Long term (current) use of anticoagulants (principal)
CPT/HCPCS: 36415; 85610

== ENCOUNTER 2020-08-29 15:55 | Outpatient (CLI) | payer MEDICARE, SELFPAY ==
[2020-08-29 16:08] LABS: Basophils Absolute Auto 0.02 K/mm3 (0.00-0.10); Basophils Percent Auto 0.3 % (0.0-1.0); Eosinophils Absolute Auto 0.06 K/mm3 (0.02-0.50); Eosinophils Percent Auto 0.8 % (1.0-6.0); Hemoglobin 15.3 g/dL (12.4-15.3); Immature Granulocyte Absolute 0.04 K/mm3 (0.00-0.00); Immature Granulocyte Percent A 0.5 % (0.0-0.0); Lymphocytes Absolute Auto 1.63 K/mm3 (1.10-4.50); Lymphocytes Percent Auto 20.8 % (18.0-42.0); Mean Corpuscular Hemoglobin 31.6 pg (27.0-31.0); Mean Platelet Volume 9.3 fl (8.7-11.0); Monocytes Absolute Auto 0.73 K/mm3 (0.10-0.90); Monocytes Percent Auto 9.3 % (2.0-11.0); Neutrophils Absolute Auto 5.4 K/mm3 (1.7-7.2); Neutrophils Percent Auto 68.3 % (50.0-70.0); Platelet Count Result 161 K/mm3 (150-420); Red Blood Count 4.84 M/mm3 (4.70-6.10); Red Cell Distribution Width 12.6 % (11.6-14.4); White Blood Count 7.8 K/mm3 (4.8-10.8)
[2020-08-29 16:34] LABS: Anion Gap 10 mmol/L (8-16); Blood Urea Nitrogen 18 mg/dL (7-18); Calcium 8.6 mg/dL (8.5-10.1); Carbon Dioxide 27 mmol/L (21-32); Chloride 104 mmol/L (98-108); Estimated Glomerular Filt Rate 44; Glucose 113 mg/dL (70-99); Osmolality Calculated 294 mOsm/kg (285-295); Potassium 3.8 mmol/L (3.5-5.1); Prostate Specific Antigen 0.5 ng/mL (< OR = 4.0); Sodium 141 mmol/L (136-145)
[2020-08-29 17:48] LABS: Add Urine Microscopic? YES; Appearance Urine Clear (Clear); Bilirubin Urine Negative (Negative); Blood Urine Negative (Negative); Color Urine Yellow (Yellow); Glucose Urine UA Negative (Negative); Ketones Urine Trace (Negative); Leukocyte Esterase Ur Negative (Negative); Nitrate Urine Negative (Negative); Protein Urine Negative (Negative); Specific Grav Ur >= 1.030 (1.010-1.020)
[2020-08-29 18:26] LABS: Bacteria Urine Trace /hpf; Mucus Urine Moderate /lpf; RBC Urine None seen /hpf (0-2); Squamous Epithelial Cell Urine Rare /hpf (Few); WBC Urine None seen /hpf (0-3)
== END 2020-08-29 15:56 | disposition home or self-care (01) ==
LOC: CHSLAB 15:58
PROVIDERS: PCP Internal Medicine; Visit Provider Internal Medicine
DX: N41.9 Inflammatory disease of prostate, unspecified (principal)
CPT/HCPCS: 36415; 80048; 81001; 84153; 85025; 87086; 87088

== ENCOUNTER 2020-11-22 07:06 | Outpatient (RCR) | payer MEDICARE, SELFPAY ==
[2020-10-18 08:17] LABS: INR 2.8; Prothrombin Time 28.6 Seconds (9.50-12.10)
[2020-11-22 07:32] LABS: INR 2.2; Prothrombin Time 22.4 Seconds (9.50-12.10)
== END 2021-01-16 23:59 | disposition home or self-care (01) ==
LOC: CHSLAB 07:06
PROVIDERS: PCP Internal Medicine; Visit Provider Internal Medicine
DX: Z79.01 Long term (current) use of anticoagulants (principal)
CPT/HCPCS: 36415; 85610

== ENCOUNTER 2020-12-13 09:17 | Outpatient (CLI) | payer MEDICARE, SELFPAY ==
--- NOTE | ~2020-12-13 | XR_ITS ---
XR shoulder LT min 2V 12/13/2020 09:50 Indication: Left shoulder pain Procedure: 5 views left shoulder Comparison: No prior studies for comparison. Findings: There are mild degenerative changes of the glenohumeral joint. There is a battery pack from pacemaker leads overlying the left upper thorax obscuring the scapula partially. No fracture or trau matic malalignment. There is anatomic alignment. 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 Reviewed, dictated and finalized at location B. 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
== END 2020-12-13 09:18 | disposition home or self-care (01) ==
LOC: CHSIMG 09:19
PROVIDERS: PCP Internal Medicine; Visit Provider Internal Medicine
DX: M25.512 Pain in left shoulder (principal); M19.012 Primary osteoarthritis, left shoulder
CPT/HCPCS: 73030

== ENCOUNTER 2020-12-19 07:28 | Outpatient (CLI) | payer MEDICARE, SELFPAY ==
[2020-12-19 07:52] LABS: INR 2.3; Prothrombin Time 23.4 Seconds (9.50-12.10)
[2020-12-19 08:58] LABS: Anion Gap 9 mmol/L (8-16); Blood Urea Nitrogen 25 mg/dL (7-18); Calcium 8.5 mg/dL (8.5-10.1); Carbon Dioxide 27 mmol/L (21-32); Chloride 104 mmol/L (98-108); Estimated Glomerular Filt Rate 50; Glucose 101 mg/dL (70-99); Osmolality Calculated 294 mOsm/kg (285-295); Potassium 4.1 mmol/L (3.5-5.1); Sodium 140 mmol/L (136-145)
== END 2020-12-19 07:29 | disposition home or self-care (01) ==
LOC: CHSLAB 07:30
PROVIDERS: PCP Internal Medicine; Visit Provider Internal Medicine
DX: R79.89 Other specified abnormal findings of blood chemistry (principal); Z79.01 Long term (current) use of anticoagulants
CPT/HCPCS: 36415; 80048; 85610

== ENCOUNTER → 2021-01-14 02:17 | Outpatient (CLI) | payer MEDICARE, SELFPAY ==
[2021-01-14 17:04] LABS: SARS-CoV-2 RNA PCR Negative
== END ==
PROVIDERS: PCP Internal Medicine; Visit Provider Surgery
DX: Z01.812 Encounter for preprocedural laboratory examination (principal); Z20.822 Contact with and (suspected) exposure to COVID-19
CPT/HCPCS: C9803; U0003; U0005

== ENCOUNTER → 2021-01-28 02:56 | Outpatient (CLI) | payer MEDICARE, SELFPAY ==
[2021-01-28 17:43] LABS: SARS-CoV-2 RNA PCR Negative
== END ==
PROVIDERS: PCP Internal Medicine; Visit Provider Surgery
DX: Z01.812 Encounter for preprocedural laboratory examination (principal); Z20.822 Contact with and (suspected) exposure to COVID-19
CPT/HCPCS: C9803; U0003; U0005

== ENCOUNTER 2021-01-31 00:42 | Day surgery (SDC) | payer MEDICARE, SELFPAY ==
[2021-01-15 08:38] VITALS: BMI 27.3
--- NOTE | 2021-01-24 16:22 | PC.NURSE ---
PT WAS SCHEDULED 01/17/2021 AND FORGOT TO STOP HIS BLOOD THINNER, PT WAS RESCHEDULED FOR 01/31/2021. PT CALLED AND INFORMATION REVIEWED WITH BROTHER CATHY-NO CHANGES IN HEALTH HX OR MEDICATIONS, BROTHER GIVEN INSTRUCTIONS FOR WHEN PATIENT IS TO HOLD HIS BLOOD THINNER, APPT DATE AND TIMES AND HIS COVID TEST TIMES AND DATE.
[2021-01-31 07:35] VITALS: BP 172/83; PULSE 68; RESP 20; TEMP 36.1; O2SAT 99; BMI 27.1
[2021-01-31] MEDS: LACTATED RINGERS 1,000 ML 150 ML IV CONT (08:06)
[2021-01-31 08:07] LABS: Basophils Percent Auto 0.4 % (0.2-1.2); Eosinophils Absolute Auto 0.1 K/mm3 (0-0.3); Eosinophils Percent Auto 1.1 % (0-4.4); Hematocrit 45.6 % (42.0-52.0); Immature Granulocyte Absolute 0.04 K/mm3 (0.00-0.031); Immature Granulocyte Percent A 0.6 % (0-0.5); Lymphocytes Absolute Auto 1.38 K/mm3 (0.9-3.2); Lymphocytes Percent Auto 19.1 % (18.3-44.2); Mean Corpuscular HGB Conc 32.9 g/dl (32-36); Mean Corpuscular Hemoglobin 31.6 pg (26-34); Mean Corpuscular Volume 96.2 fl (80-100); Mean Platelet Volume 8.8 fl (7.4-10.4); Monocytes Absolute Auto 0.7 K/mm3 (0.1-0.6); Monocytes Percent Auto 9.8 % (2.6-8.5); Platelet Count Result 154 k/mm3 (150-375); Red Blood Count 4.74 M/mm3 (4.6-6.20); Red Cell Distribution Width 12.6 % (11.5-14.5); White Blood Count 7.2 K/mm3 (4.5-10.0)
--- NOTE | 2021-01-31 08:33 | PM.IMHP ---
H&P: HPI History of Present Illness Date/Time: 01/31/21 08:33 Chief Complaint: change in bowel habits Narrative: this is an 80-year-old man who presents for colonoscopy. He states he has had narrowed stools and intermittent constipation. He occasionally sees some blood in his stool. His last colonoscopy was 2 years ago and diverticulosis was noted, but no other abnormalities were seen. He denies any family history of colon cancer. Review of Systems Review of Systems: All systems reviewed & are unremarkable except as noted in HPI and below Constitutional: Constitutional: Denies chills, Denies fever(s), Denies headache(s) and Denies weight loss Eyes: Eyes: Denies change in vision ENT: Denies dizziness, Denies headache(s), Denies neck mass and Denies throat swelling Cardiovascular: Cardiovascular: Denies chest pain, Denies lightheadedness and Denies dyspnea Respiratory: Respiratory: Denies cough, Denies dyspnea and Denies wheezing Gastrointestinal: Gastrointestinal: Denies abdominal pain, Denies change in bowel habits, Denies nausea and Denies vomiting Genitourinary: Genitourinary: Denies hematuria and Denies dysuria Musculoskeletal: Musculoskeletal: Reports as per HPI Integumentary/Breasts: Skin/Breast: Reports as per HPI Neurologic: Denies dizziness and Denies headache(s) Allergic/Immunologic: Allergic/Immunologic: Denies throat swelling and Denies wheezing [facility] Past Medical History Medical History (Updated 01/31/21 @ 08:34 by Gerard Knox DO) Cardiomyopathy 03/2019 EF 40% by echo Complete heart block [employer] pacemaker 2009 CVA (cerebral vascular accident) History of TIA, then CVA 07/2018, treated with warfarin Hyperlipidemia Pacemaker 2009 [employer] pacemaker, 2019 generator change Pre-diabetes Seizure Thrombocytopenia Has ITP treated by MAVERICK Santos in [facility], previously on Retuxin Family History Family History (Updated 03/01/20 @ 10:28 by Abi Bender MD) Mother Heart disease Father Cancer Social History Social History (Updated 03/01/20 @ 10:29 by Abi Bender MD) Social History: 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 No alcohol or tobacco use for a couple of decades. Has a brother to me is close named Vinh. Years smoked: 16 Smoking status: Former smoker Tobacco type: cigarettes Second hand tobacco smoke exposure: Yes Alcohol intake: former Substance use: never Last use: 1975 Living arrangements: alone Gender identity (if verbalized by the patient): Male Spiritual care concerns: No Meds Home Medications and Allergies Home Medications Medication Instructions Recorded Confirmed Type brimonidine 1 drp OPHTHALMIC (EYE) Q8H 02/29/20 01/15/21 History finasteride [Proscar] 5 mg PO DAILY 02/29/20 01/15/21 History latanoprost [Xalatan] 1 drp OPHTHALMIC (EYE) BID 02/29/20 01/15/21 History simvastatin [Zocor] 20 mg PO QPM 02/29/20 01/15/21 History timolol 1 drp OPHTHALMIC (EYE) DAILY 02/29/20 01/31/21 History warfarin 4.5 mg PO DAILY 02/29/20 01/31/21 History losartan 50 mg PO DAILY 03/01/20 01/15/21 History lamotrigine 150 mg PO BID 01/15/21 01/31/21 History tamsulosin 0.4 mg PO DAILY 01/15/21 01/31/21 History Allergies Allergy/AdvReac Type Severity Reaction Status Date / Time No Known Allergies Verified 01/15/21 08:32 Vital Signs Vital Signs - 24 hr 01/31/21 07:35 Temperature 36.1 C L Pulse Rate 68 Respiratory Rate 20 Blood Pressure 172/83 H Pulse Oximetry 99 Exam Const: General: no acute distress and alert Orientation/consciousness: patient oriented x3 HENMT: Head: normocephalic and atraumatic Ears: hearing grossly normal bilaterally General nose exam: Normal nares present Mouth: Yes Normal oral and palatal mucosa present Eyes: Periorbital: periorbital findings normal Sclera: sclerae normal EOM: EOMs intact bilaterally Neck: Neck: normal visual inspection, n
--- NOTE | 2021-01-31 08:34 | WPDANESEPPF ---
Anes - Initial Pre Proc Eval Procedure: Operation Date: 01/31/21 09:00 Proposed Procedures p Colonoscopy - Gerard Knox DO Date/Time: 01/31/21 08:34 Surgeon: Gerard Knox DO Pre Op Diagnosis: Change in bowel habits Patient Data Age: 80 Gender: M Height: 5 ft 11 in Weight: 88.4 kg Last Vital Signs Temp 97.0 F L 01/31/21 07:35 Pulse 68 01/31/21 07:35 Resp 20 01/31/21 07:35 BP 172/83 H 01/31/21 07:35 Pulse Ox 99 01/31/21 07:35 Allergies Allergy/AdvReac Type Severity Reaction Status Date / Time No Known Allergies Verified 01/15/21 08:32 Home Medications Medication Instructions Recorded Confirmed Type brimonidine 1 drp OPHTHALMIC (EYE) Q8H 02/29/20 01/15/21 History finasteride [Proscar] 5 mg PO DAILY 02/29/20 01/15/21 History latanoprost [Xalatan] 1 drp OPHTHALMIC (EYE) BID 02/29/20 01/15/21 History simvastatin [Zocor] 20 mg PO QPM 02/29/20 01/15/21 History timolol 1 drp OPHTHALMIC (EYE) DAILY 02/29/20 01/31/21 History warfarin 4.5 mg PO DAILY 02/29/20 01/31/21 History losartan 50 mg PO DAILY 03/01/20 01/15/21 History lamotrigine 150 mg PO BID 01/15/21 01/31/21 History tamsulosin 0.4 mg PO DAILY 01/15/21 01/31/21 History Laboratory Tests 01/31/21 01/31/21 07:52 08:12 WBC 7.2 K/mm3 K/mm3 (4.5-10.0) RBC 4.74 M/mm3 M/mm3 (4.6-6.20) Hgb 15.0 g/dL g/dL (14.0-18.0) Hct 45.6 % % (42.0-52.0) MCV 96.2 fl fl (80-100) MCH 31.6 pg pg (26-34) MCHC 32.9 g/dl g/dl (32-36) RDW 12.6 % % (11.5-14.5) Plt Count 154 k/mm3 k/mm3 (150-375) MPV 8.8 fl fl (7.4-10.4) Immature Gran % (Auto) 0.6 % H % (0-0.5) Neut % (Auto) 69.0 % % (45.5-73.1) Lymph % (Auto) 19.1 % % (18.3-44.2) Pinal % (Auto) 9.8 % H % (2.6-8.5) Eos % (Auto) 1.1 % % (0-4.4) Baso % (Auto) 0.4 % % (0.2-1.2) Lymph # (Auto) 1.38 K/mm3 K/mm3 (0.9-3.2) Pinal # (Auto) 0.7 K/mm3 H K/mm3 (0.1-0.6) Eos # (Auto) 0.1 K/mm3 K/mm3 (0-0.3) Baso # (Auto) 0.0 K/mm3 K/mm3 (0.0-0.1) Abs Immat Gran (auto) 0.04 K/mm3 H K/mm3 (0.00-0.031) Absolute Neuts (auto) 5.0 K/mm3 K/mm3 (1.3-6.7) Absolute Nucleated RBC 0.0 K/mm3 K/mm3 (0.0-0.012) Nucleated RBC % 0.0 % % (0.0-0.2) PT Pending INR Pending APTT Pending Patient hx anesthesia problems: none Family hx anesthesia problems: none [facility] Past Medical History Medical History (Updated 01/31/21 @ 08:34 by Gerard Knox DO) Cardiomyopathy 03/2019 EF 40% by echo Complete heart block [employer] pacemaker 2009 CVA (cerebral vascular accident) History of TIA, then CVA 07/2018, treated with warfarin Hyperlipidemia Pacemaker 2009 [employer] pacemaker, 2019 generator change Pre-diabetes Seizure Thrombocytopenia Has ITP treated by MAVERICK Santos in [facility], previously on Retuxin Family History Family History (Updated 03/01/20 @ 10:28 by Abi Bender MD) Mother Heart disease Father Cancer Social History Social History (Updated 03/01/20 @ 10:29 by Abi Bender MD) Social History: 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 No alcohol or tobacco use for a couple of decades. Has a brother to me is close named Vinh. Years smoked: 16 Smoking status: Former smoker Tobacco type: cigarettes Second hand tobacco smoke exposure: Yes Alcohol intake: former Substance use: never Last use: 1975 Living arrangements: alone Gender identity (if verbalized by the patient): Male Spiritual care concerns: No Anes - Eval Final PreProcedure Day of Procedure 01/31/21 08:34 Patient weight: overweight Heart: regular rate and rhythm Lungs: clear to auscultation Airway: Mallampati scale class II Neurological: alert and oriented Last oral intake: >/= 8 hours ASA classification: III Emerg
[2021-01-31 08:38] LABS: INR 0.9; Prothrombin Time 13.2 Seconds (11.1-14.7)
[2021-01-31 08:39] LABS: Partial Thromboplastin Time 25.2 SECONDS (22.3-36.8)
[2021-01-31 09:59] VITALS: BP 137/75; PULSE 60; RESP 24; O2SAT 99
[2021-01-31 10:09] VITALS: BP 134/78; PULSE 60; RESP 17; O2SAT 99
[2021-01-31 10:19] VITALS: BP 156/82; PULSE 60; RESP 22; O2SAT 99
== END 2021-01-31 10:48 | disposition home or self-care (01) ==
PROVIDERS: PCP Internal Medicine; Visit Provider Surgery
PROC: 0DJD8ZZ Inspection of Lower Intestinal Tract, Via Natural or Artificial Opening Endoscopic (ICD-10-PCS; CPT 45378; principal; 2021-01-31 09:00)
DX: R19.4 Change in bowel habit (principal); K57.30 Diverticulosis of large intestine without perforation or abscess without bleeding; K64.8 Other hemorrhoids; I42.9 Cardiomyopathy, unspecified; I44.2 Atrioventricular block, complete; E78.5 Hyperlipidemia, unspecified; R73.03 Prediabetes; D69.3 Immune thrombocytopenic purpura; G40.909 Epilepsy, unspecified, not intractable, without status epilepticus; Z86.73 Personal history of transient ischemic attack (TIA), and cerebral infarction without residual deficits; Z79.01 Long term (current) use of anticoagulants; Z95.0 Presence of cardiac pacemaker
CPT/HCPCS: 45378; 36415; 85025; 85610; 85730; J2704; J7120

== ENCOUNTER 2021-01-31 14:51 | Outpatient (CLI) | payer MEDICARE, SELFPAY ==
[2021-01-31 15:24] LABS: Prothrombin Time 10.9 Seconds (9.50-12.10)
[2021-01-31 15:25] LABS: Basophils Absolute Auto 0.02 K/mm3 (0.00-0.10); Basophils Percent Auto 0.3 % (0.0-1.0); Eosinophils Absolute Auto 0.09 K/mm3 (0.02-0.50); Eosinophils Percent Auto 1.1 % (1.0-6.0); Hematocrit 44.5 % (37.0-46.0); Immature Granulocyte Absolute 0.03 K/mm3 (0.00-0.00); Immature Granulocyte Percent A 0.4 % (0.0-0.0); Lymphocytes Absolute Auto 1.65 K/mm3 (1.10-4.50); Lymphocytes Percent Auto 20.7 % (18.0-42.0); Mean Corpuscular HGB Conc 33.7 g/dL (32.0-36.0); Mean Corpuscular Hemoglobin 32.1 pg (27.0-31.0); Mean Corpuscular Volume 95.3 fL (78.0-102.0); Mean Platelet Volume 9.3 fl (8.7-11.0); Monocytes Absolute Auto 0.72 K/mm3 (0.10-0.90); Neutrophils Absolute Auto 5.5 K/mm3 (1.7-7.2); Neutrophils Percent Auto 68.5 % (50.0-70.0); Platelet Count Result 171 K/mm3 (150-420); Red Blood Count 4.67 M/mm3 (4.70-6.10); Red Cell Distribution Width 12.6 % (11.6-14.4)
== END 2021-01-31 14:52 | disposition home or self-care (01) ==
LOC: CHSLAB 14:53
PROVIDERS: PCP Internal Medicine; Visit Provider Internal Medicine Hematology & Oncology
DX: D69.3 Immune thrombocytopenic purpura (principal)
CPT/HCPCS: 36415; 85025; 85610

== ENCOUNTER 2021-02-06 07:04 | Outpatient (CLI) | payer MEDICARE, SELFPAY ==
[2021-02-06 07:23] LABS: Basophils Absolute Auto 0.02 K/mm3 (0.00-0.10); Basophils Percent Auto 0.3 % (0.0-1.0); Eosinophils Absolute Auto 0.08 K/mm3 (0.02-0.50); Eosinophils Percent Auto 1.3 % (1.0-6.0); Hematocrit 43.3 % (37.0-46.0); Hemoglobin 14.3 g/dL (12.4-15.3); Immature Granulocyte Absolute 0.03 K/mm3 (0.00-0.00); Immature Granulocyte Percent A 0.5 % (0.0-0.0); Lymphocytes Absolute Auto 1.51 K/mm3 (1.10-4.50); Mean Corpuscular Hemoglobin 31.6 pg (27.0-31.0); Mean Corpuscular Volume 95.6 fL (78.0-102.0); Mean Platelet Volume 8.9 fl (8.7-11.0); Monocytes Absolute Auto 0.53 K/mm3 (0.10-0.90); Monocytes Percent Auto 8.4 % (2.0-11.0); Neutrophils Absolute Auto 4.1 K/mm3 (1.7-7.2); Neutrophils Percent Auto 65.5 % (50.0-70.0); Platelet Count Result 150 K/mm3 (150-420); Red Blood Count 4.53 M/mm3 (4.70-6.10); Red Cell Distribution Width 12.6 % (11.6-14.4); White Blood Count 6.3 K/mm3 (4.8-10.8)
[2021-02-06 07:39] LABS: Add Urine Microscopic? NO; Appearance Urine Clear (Clear); Bilirubin Urine Negative (Negative); Blood Urine Negative (Negative); Color Urine Light Yellow (Yellow); Glucose Urine UA Negative (Negative); Ketones Urine Negative (Negative); Leukocyte Esterase Ur Negative (Negative); Nitrate Urine Negative (Negative); Protein Urine Negative (Negative); Specific Grav Ur 1.015 (1.010-1.020); Urobilinogen Urine 0.2 mg/dL (0.2-1.0)
[2021-02-06 07:50] LABS: Hemoglobin A1C 5.7 % (<5.7)
[2021-02-06 08:15] LABS: Alanine Aminotransferase 25 U/L (16-63); Albumin Level 3.6 g/dL (3.4-5.0); Alkaline Phosphatase 85 U/L (46-116); Anion Gap 11 mmol/L (8-16); Aspartate Amino Transferase 21 U/L (15-37); Bilirubin,Total 0.4 mg/dL (0.00-1.00); Blood Urea Nitrogen 20 mg/dL (7-18); Carbon Dioxide 27 mmol/L (21-32); Chloride 105 mmol/L (98-108); Cholesterol 164 mg/dL (0-200); Creatine Kinase 105 U/L (39-308); Estimated Glomerular Filt Rate 60; Glucose 110 mg/dL (70-99); HDL Direct 40 mg/dL (40-60); LDL Cholesterol Calculated 104 mg/dL (<130); Osmolality Calculated 299 mOsm/kg (285-295); Potassium 4.2 mmol/L (3.5-5.1); Sodium 143 mmol/L (136-145); Thyroid Stimulating Hormone 1.77 uIU/mL (0.36-3.74); Total Protein 6.4 g/dL (6.4-8.2); Triglycerides 101 mg/dL (0-150)
[2021-02-06 08:25] LABS: Calcium 8.7 mg/dL (8.5-10.1)
== END 2021-02-06 07:05 | disposition home or self-care (01) ==
LOC: CHSLAB 07:06
PROVIDERS: PCP Internal Medicine; Visit Provider Internal Medicine
DX: E78.2 Mixed hyperlipidemia (principal); I10 Essential (primary) hypertension; D69.6 Thrombocytopenia, unspecified; G40.309 Generalized idiopathic epilepsy and epileptic syndromes, not intractable, without status epilepticus; R53.82 Chronic fatigue, unspecified; R73.01 Impaired fasting glucose
CPT/HCPCS: 36415; 80053; 80061; 81003; 82550; 83036; 84439; 84443; 85025

== ENCOUNTER 2021-04-10 06:59 | Outpatient (RCR) | payer MEDICARE, SELFPAY ==
[2021-01-21 07:32] LABS: INR 2.1; Prothrombin Time 21.6 Seconds (9.50-12.10)
[2021-02-08 09:41] LABS: INR 1.9; Prothrombin Time 19.3 Seconds (9.50-12.10)
[2021-03-13 09:52] LABS: INR 1.9; Prothrombin Time 19.5 Seconds (9.50-12.10)
[2021-04-10 07:24] LABS: INR 2.5; Prothrombin Time 25.8 Seconds (9.50-12.10)
== END 2021-04-21 23:59 | disposition home or self-care (01) ==
LOC: CHSLAB 06:59
PROVIDERS: PCP Internal Medicine; Visit Provider Internal Medicine
DX: Z79.01 Long term (current) use of anticoagulants (principal)
CPT/HCPCS: 36415; 85610

== ENCOUNTER 2021-04-12 13:33 | Outpatient (CLI) | payer MEDICARE, SELFPAY ==
--- NOTE | ~2021-04-12 | CT_ITS ---
EXAMINATION: CT shoulder LT wo con DATE: 04/12/2021 13:54 INDICATION: Chronic left shoulder pain. TECHNIQUE: Computed tomography (CT) of the left shoulder was performed without intravenous contrast. Automated exposure control and iterative reconstruction technique were employed. The dose-length prod uct was 456.06 mGy-cm. COMPARISON: Left shoulder radiographs 12/13/2020 FINDINGS: Bone alignment is normal. No fracture. There is mild osteoarthritis of glenohumeral joint a nd moderate osteoarthritis of acromioclavicular joint. Subacromial spurring is noted. There are multi ple chronic vertebral body fractures in the spine. There is no asymmetric fatty atrophy of the rotato r cuff muscle bellies. A left chest pacer is noted. IMPRESSION: 1. Polyarticular osteoarthritis. Reviewed, dictated and finalized at location A.
== END 2021-04-12 13:34 | disposition home or self-care (01) ==
LOC: CHSIMG 13:35
PROVIDERS: PCP Internal Medicine; Visit Provider Internal Medicine
DX: M25.512 Pain in left shoulder (principal)
CPT/HCPCS: 73200

== ENCOUNTER 2021-07-15 07:02 | Outpatient (RCR) | payer MEDICARE, SELFPAY ==
[2021-05-15 13:35] LABS: Prothrombin Time 20.3 Seconds (9.50-12.10)
[2021-06-12 07:40] LABS: INR 1.8; Prothrombin Time 18.4 Seconds (9.50-12.10)
[2021-07-15 07:30] LABS: INR 1.8; Prothrombin Time 18.3 Seconds (9.50-12.10)
== END 2021-08-13 23:59 | disposition home or self-care (01) ==
LOC: CHSLAB 07:02
PROVIDERS: PCP Internal Medicine; Visit Provider Internal Medicine
DX: Z79.01 Long term (current) use of anticoagulants (principal)
CPT/HCPCS: 36415; 85610

== ENCOUNTER 2021-07-17 07:33 | Outpatient (CLI) | payer MEDICARE, SELFPAY ==
[2021-07-17 07:53] LABS: Basophils Absolute Auto 0.03 K/mm3 (0.00-0.10); Basophils Percent Auto 0.4 % (0.0-1.0); Eosinophils Absolute Auto 0.17 K/mm3 (0.02-0.50); Eosinophils Percent Auto 2.1 % (1.0-6.0); Hematocrit 47.2 % (37.0-46.0); Hemoglobin 15.3 g/dL (12.4-15.3); Immature Granulocyte Absolute 0.05 K/mm3 (0.00-0.00); Immature Granulocyte Percent A 0.6 % (0.0-0.0); Lymphocytes Percent Auto 21.4 % (18.0-42.0); Mean Corpuscular HGB Conc 32.4 g/dL (32.0-36.0); Mean Corpuscular Hemoglobin 31.2 pg (27.0-31.0); Mean Corpuscular Volume 96.1 fL (78.0-102.0); Mean Platelet Volume 8.8 fl (8.7-11.0); Monocytes Absolute Auto 0.75 K/mm3 (0.10-0.90); Monocytes Percent Auto 9.4 % (2.0-11.0); Neutrophils Absolute Auto 5.2 K/mm3 (1.7-7.2); Neutrophils Percent Auto 66.1 % (50.0-70.0); Platelet Count Result 169 K/mm3 (150-420); Red Blood Count 4.91 M/mm3 (4.70-6.10); Red Cell Distribution Width 12.9 % (11.6-14.4); White Blood Count 7.9 K/mm3 (4.8-10.8)
[2021-07-17 08:03] LABS: Hemoglobin A1C 5.8 % (<5.7)
[2021-07-17 08:06] LABS: Add Urine Microscopic? NO; Appearance Urine Clear (Clear); Bilirubin Urine Negative (Negative); Blood Urine Negative (Negative); Color Urine Light Yellow (Yellow); Glucose Urine UA Negative (Negative); Ketones Urine Negative (Negative); Leukocyte Esterase Ur Negative (Negative); Nitrate Urine Negative (Negative); Protein Urine Negative (Negative); Specific Grav Ur 1.015 (1.010-1.020); Urobilinogen Urine 0.2 mg/dL (0.2-1.0); pH Urine 7.5 (5.0-8.0)
[2021-07-17 08:49] LABS: Alanine Aminotransferase 27 U/L (16-63); Albumin Level 3.7 g/dL (3.4-5.0); Alkaline Phosphatase 94 U/L (46-116); Anion Gap 6 mmol/L (8-16); Aspartate Amino Transferase 22 U/L (15-37); Bilirubin,Total 0.5 mg/dL (0.00-1.00); Blood Urea Nitrogen 17 mg/dL (7-18); Calcium 8.7 mg/dL (8.5-10.1); Carbon Dioxide 30 mmol/L (21-32); Chloride 107 mmol/L (98-108); Cholesterol 160 mg/dL (0-200); Creatine Kinase 112 U/L (39-308); Estimated Glomerular Filt Rate 60; Glucose 106 mg/dL (70-99); HDL Direct 38 mg/dL (40-60); LDL Cholesterol Calculated 100 mg/dL (<130); Osmolality Calculated 297 mOsm/kg (285-295); Potassium 4.2 mmol/L (3.5-5.1); Sodium 143 mmol/L (136-145); Total Protein 6.9 g/dL (6.4-8.2); Triglycerides 108 mg/dL (0-150)
== END 2021-07-17 07:34 | disposition home or self-care (01) ==
LOC: CHSLAB 07:38
PROVIDERS: PCP Internal Medicine; Visit Provider Internal Medicine
DX: I10 Essential (primary) hypertension (principal); E78.2 Mixed hyperlipidemia; G40.309 Generalized idiopathic epilepsy and epileptic syndromes, not intractable, without status epilepticus; D69.6 Thrombocytopenia, unspecified; R73.01 Impaired fasting glucose
CPT/HCPCS: 36415; 80053; 80061; 81003; 82550; 83036; 85025

== ENCOUNTER 2021-08-01 07:04 | Outpatient (CLI) | payer MEDICARE, SELFPAY ==
[2021-08-01 07:20] LABS: Basophils Absolute Auto 0.05 K/mm3 (0.00-0.10); Basophils Percent Auto 0.6 % (0.0-1.0); Eosinophils Absolute Auto 0.17 K/mm3 (0.02-0.50); Eosinophils Percent Auto 2.1 % (1.0-6.0); Hematocrit 43.4 % (37.0-46.0); Hemoglobin 14.5 g/dL (12.4-15.3); Immature Granulocyte Absolute 0.04 K/mm3 (0.00-0.00); Immature Granulocyte Percent A 0.5 % (0.0-0.0); Lymphocytes Absolute Auto 1.87 K/mm3 (1.10-4.50); Mean Corpuscular HGB Conc 33.4 g/dL (32.0-36.0); Mean Corpuscular Hemoglobin 31.1 pg (27.0-31.0); Mean Corpuscular Volume 93.1 fL (78.0-102.0); Mean Platelet Volume 9.2 fl (8.7-11.0); Monocytes Absolute Auto 0.94 K/mm3 (0.10-0.90); Monocytes Percent Auto 11.5 % (2.0-11.0); Neutrophils Absolute Auto 5.1 K/mm3 (1.7-7.2); Neutrophils Percent Auto 62.3 % (50.0-70.0); Platelet Count Result 179 K/mm3 (150-420); Red Blood Count 4.66 M/mm3 (4.70-6.10); Red Cell Distribution Width 12.9 % (11.6-14.4); White Blood Count 8.1 K/mm3 (4.8-10.8)
[2021-08-01 07:34] LABS: INR 2.7; Prothrombin Time 27.4 Seconds (9.50-12.10)
== END 2021-08-01 07:05 | disposition home or self-care (01) ==
LOC: CHSLAB 07:09
PROVIDERS: PCP Internal Medicine; Visit Provider Internal Medicine Hematology & Oncology
DX: D69.3 Immune thrombocytopenic purpura (principal)
CPT/HCPCS: 36415; 85025; 85610

== ENCOUNTER 2021-11-25 07:33 | Outpatient (RCR) | payer MEDICARE, SELFPAY ==
[2021-09-11 07:28] LABS: INR 2.3; Prothrombin Time 23.4 Seconds (9.50-12.10)
[2021-10-09 09:17] LABS: Prothrombin Time 20.8 Seconds (9.50-12.10)
[2021-11-25 07:57] LABS: Prothrombin Time 20.3 Seconds (9.50-12.10)
== END 2021-12-10 23:59 | disposition home or self-care (01) ==
LOC: CHSLAB 07:33
PROVIDERS: PCP Internal Medicine; Visit Provider Internal Medicine
DX: Z79.01 Long term (current) use of anticoagulants (principal)
CPT/HCPCS: 36415; 85610

== ENCOUNTER 2021-12-23 10:23 | Outpatient (CLI) | payer MEDICARE, SELFPAY ==
--- NOTE | ~2021-12-23 | XR_ITS ---
XR lumbar spine 2-3V DATE: 12/23/2021 10:49 INDICATION: Acute low back pain after heavy lifting 5 days ago TECHNIQUE: AP, lateral, coned lateral lumbosacral views COMPARISON: 07/07/2019 CT abdomen pelvis FINDINGS: There is moderate compression fracture deformity of L2, not present on 07/07/2019 CT abdome n pelvis examination. No other fracture or bone destruction of the lumbar spine is evident. The lumbar pedicles are intact. Mild to moderate degenerative disc disease in the upper and mid lumbar spine. Moderately severe degen erative disc disease at L5-S1. There is mild levoscoliosis of the thoracolumbar spine. There is moderate osteopenia. The sacroiliac joints are intact. IMPRESSION: L2 compression fracture, new since 07/07/2019 Multilevel degenerative disc disease, greatest at L5-S1 Osteopenia Reviewed, dictated and finalized at location B.
== END 2021-12-23 10:24 | disposition home or self-care (01) ==
LOC: CHSIMG 10:25
PROVIDERS: PCP Internal Medicine; Visit Provider Internal Medicine
DX: M54.50 Low back pain, unspecified (principal)
CPT/HCPCS: 72100

== ENCOUNTER 2021-12-24 11:54 | Outpatient (CLI) | payer MEDICARE, SELFPAY ==
--- NOTE | ~2021-12-24 | CT_ITS ---
EXAMINATION: CT lumbar spine wo con DATE: 12/24/2021 12:15 INDICATION: Lifting injury 10 days ago; severe low back pain TECHNIQUE: Computed tomography (CT) of the lumbar spine was performed without intravenous contrast. A utomated exposure control and iterative reconstruction technique were employed. Exam dose: 1078.14 m Gy-cm total exam DLP. COMPARISON: 12/23/2021 lumbar spine 07/07/2019 CT abdomen pelvis FINDINGS: There is a recent burst fracture of L2, with prominent biconcavity and loss of height. With up to approximately 2.5 mm retropulsion of a posterosuperior fragment, mildly encroaching upon the l umbar spinal canal. There is diffuse osteopenia. There is mildly severe degenerative disc disease and minimal retrolisthesis at L5-S1. No spondylolysis. No bone destruction is evident. The sacroiliac joints are intact, with mild degenerative change. Incidentally noted is diverticulosis of the sigmoid colon.. IMPRESSION: Prominent burst fracture deformity of L2, recent Osteopenia Severe degenerative disc disease at L5-S1 Reviewed, dictated and finalized at Location A. Reviewed, dictated and finalized at location B.
== END 2021-12-24 11:55 | disposition home or self-care (01) ==
LOC: CHSIMG 11:56
PROVIDERS: PCP Internal Medicine; Visit Provider Internal Medicine
DX: M48.56XD Collapsed vertebra, not elsewhere classified, lumbar region, subsequent encounter for fracture with routine healing (principal)
CPT/HCPCS: 72131

== ENCOUNTER 2022-01-07 09:38 | Outpatient (CLI) | payer MEDICARE, SELFPAY ==
[2022-01-07 10:07] LABS: Basophils Absolute Auto 0.05 K/mm3 (0.00-0.10); Basophils Percent Auto 0.5 % (0.0-1.0); Eosinophils Absolute Auto 0.32 K/mm3 (0.02-0.50); Eosinophils Percent Auto 3.3 % (1.0-6.0); Hematocrit 42.5 % (37.0-46.0); Hemoglobin 13.9 g/dL (12.4-15.3); Immature Granulocyte Absolute 0.09 K/mm3 (0.00-0.00); Immature Granulocyte Percent A 0.9 % (0.0-0.0); Lymphocytes Absolute Auto 1.27 K/mm3 (1.10-4.50); Lymphocytes Percent Auto 13.1 % (18.0-42.0); Mean Corpuscular HGB Conc 32.7 g/dL (32.0-36.0); Mean Corpuscular Hemoglobin 31.6 pg (27.0-31.0); Mean Corpuscular Volume 96.6 fL (78.0-102.0); Mean Platelet Volume 9.1 fl (8.7-11.0); Monocytes Absolute Auto 0.84 K/mm3 (0.10-0.90); Monocytes Percent Auto 8.7 % (2.0-11.0); Neutrophils Absolute Auto 7.1 K/mm3 (1.7-7.2); Neutrophils Percent Auto 73.5 % (50.0-70.0); Platelet Count Result 168 K/mm3 (150-420); Red Cell Distribution Width 13.1 % (11.6-14.4); White Blood Count 9.7 K/mm3 (4.8-10.8)
[2022-01-07 10:15] LABS: INR 2.1; Prothrombin Time 21.5 Seconds (9.50-12.10)
[2022-01-07 10:40] LABS: Alanine Aminotransferase 39 U/L (16-63); Albumin Level 3.4 g/dL (3.4-5.0); Alkaline Phosphatase 163 U/L (46-116); Anion Gap 7 mmol/L (8-16); Aspartate Amino Transferase 18 U/L (15-37); Bilirubin,Total 0.4 mg/dL (0.00-1.00); Blood Urea Nitrogen 23 mg/dL (7-18); Calcium 8.6 mg/dL (8.5-10.1); Carbon Dioxide 28 mmol/L (21-32); Chloride 103 mmol/L (98-108); Estimated Glomerular Filt Rate 54; Glucose 110 mg/dL (70-99); Osmolality Calculated 290 mOsm/kg (285-295); Potassium 4.8 mmol/L (3.5-5.1); Sodium 138 mmol/L (136-145); Total Protein 6.4 g/dL (6.4-8.2)
[2022-01-14 08:17] LABS: Reference Lab Test Name TRYPTASE
== END 2022-01-07 09:39 | disposition home or self-care (01) ==
LOC: CHSLAB 09:41
PROVIDERS: PCP Internal Medicine; Visit Provider Internal Medicine
DX: R21 Rash and other nonspecific skin eruption (principal); Z79.01 Long term (current) use of anticoagulants
CPT/HCPCS: 36415; 80053; 83520; 85025; 85610

== ENCOUNTER 2022-01-21 11:41 | Outpatient (CLI) | payer MEDICARE, SELFPAY ==
--- NOTE | ~2022-01-21 | XR_ITS ---
XR lumbar spine 2-3V DATE: 01/21/2022 12:05 INDICATION: L2 fracture TECHNIQUE: AP, lateral, coned lateral lumbosacral views COMPARISON: 01/02/2022 lumbar spine 12/24/2021 CT lumbar spine FINDINGS: There is further loss of height and anterior wedging of L2 since 12/23/2021. Diffuse osteopenia. No other fracture is evident. No spondylolisthesis. There is moderately severe degenerative disc disease at L5-S1 and mild degenerative disc disease at t he remaining lumbar interspaces. The lumbar pedicles are intact. The sacroiliac joints appear normal. IMPRESSION: Increased loss of height and anterior wedging of L2 burst fracture since 12/23/2021, but re latively stable since 12/24/2021 Reviewed, dictated and finalized at location A. IMPRESSION: Increased loss of height and anterior wedging of L2 burst fracture since 12/23/2021, but relatively stable since 12/24/2021
== END 2022-01-21 11:42 | disposition home or self-care (01) ==
LOC: CHSIMG 11:45
PROVIDERS: PCP Internal Medicine; Visit Provider Internal Medicine
DX: S32.029D Unspecified fracture of second lumbar vertebra, subsequent encounter for fracture with routine healing (principal)
CPT/HCPCS: 72100

== ENCOUNTER 2022-01-22 08:48 | Outpatient (CLI) | payer MEDICARE, SELFPAY ==
[2022-01-22 09:02] LABS: Basophils Absolute Auto 0.03 K/mm3 (0.00-0.10); Basophils Percent Auto 0.3 % (0.0-1.0); Eosinophils Absolute Auto 0.12 K/mm3 (0.02-0.50); Hematocrit 41.4 % (37.0-46.0); Hemoglobin 13.6 g/dL (12.4-15.3); Immature Granulocyte Absolute 0.12 K/mm3 (0.00-0.00); Lymphocytes Absolute Auto 1.44 K/mm3 (1.10-4.50); Lymphocytes Percent Auto 12.2 % (18.0-42.0); Mean Corpuscular HGB Conc 32.9 g/dL (32.0-36.0); Mean Corpuscular Hemoglobin 31.6 pg (27.0-31.0); Mean Corpuscular Volume 96.3 fL (78.0-102.0); Mean Platelet Volume 8.9 fl (8.7-11.0); Monocytes Absolute Auto 1.09 K/mm3 (0.10-0.90); Monocytes Percent Auto 9.2 % (2.0-11.0); Neutrophils Percent Auto 76.3 % (50.0-70.0); Platelet Count Result 132 K/mm3 (150-420); Red Cell Distribution Width 13.7 % (11.6-14.4); White Blood Count 11.8 K/mm3 (4.8-10.8)
[2022-01-22 09:27] LABS: Alanine Aminotransferase 31 U/L (16-63); Albumin Level 3.2 g/dL (3.4-5.0); Alkaline Phosphatase 111 U/L (46-116); Anion Gap 5 mmol/L (8-16); Aspartate Amino Transferase 17 U/L (15-37); Bilirubin,Total 0.6 mg/dL (0.00-1.00); Blood Urea Nitrogen 20 mg/dL (7-18); Calcium 8.6 mg/dL (8.5-10.1); Carbon Dioxide 29 mmol/L (21-32); Chloride 102 mmol/L (98-108); Estimated Glomerular Filt Rate 57; Glucose 112 mg/dL (70-99); Osmolality Calculated 285 mOsm/kg (285-295); Potassium 4.3 mmol/L (3.5-5.1); Sodium 136 mmol/L (136-145); Total Protein 6.7 g/dL (6.4-8.2)
== END 2022-01-22 08:49 | disposition home or self-care (01) ==
LOC: CHSLAB 08:50
PROVIDERS: PCP Internal Medicine; Visit Provider Internal Medicine Hematology & Oncology
DX: D69.3 Immune thrombocytopenic purpura (principal)
CPT/HCPCS: 36415; 80053; 85025

== ENCOUNTER 2022-01-28 13:45 | Outpatient (CLI) | payer MEDICARE, SELFPAY ==
--- NOTE | ~2022-01-28 | CT_ITS ---
EXAMINATION: CT lumbar spine wo con DATE: 01/28/2022 14:01 INDICATION: Left-sided low back pain. Left-sided lumbar radiculopathy. TECHNIQUE: Computed tomography (CT) of the lumbar spine was performed without intravenous contrast. A utomated exposure control and iterative reconstruction technique were employed. The dose-length produ ct was 1394.85 mGy-cm. COMPARISON: Lumbar spine CT 12/24/2021 FINDINGS: There is 3 degrees levocurvature of lumbar spine. There is 3 mm retrolisthesis of L5 on S1. There is a burst fracture of L2 with 3/5 loss of height and retropulsion of bone 5 mm into central s anali canal. There is moderately decreased disc height at L5-S1. The following disc levels are specif ically discussed: L1-L2: The disc is bulging. There is moderate bilateral facet joint osteoarthritis. There is mild francisco ateral neural foraminal stenosis. There is mild central canal stenosis. L2-L3: The disc is bulging. There is mild bilateral facet joint osteoarthritis. There is mild bilater al neural foraminal stenosis. There is mild central canal stenosis. L3-L4: The disc is bulging. There is mild bilateral facet joint osteoarthritis. There is mild bilater al neural foraminal stenosis. There is mild central canal stenosis. L4-L5: The disc is bulging. There is severe bilateral facet joint osteoarthritis. There is mild bilat eral neural foraminal stenosis. There is mild central canal stenosis. L5-S1: The disc is bulging. There is moderate bilateral facet joint osteoarthritis. There is mild francisco ateral neural foraminal stenosis. There is mild central canal stenosis. IMPRESSION: 1. Subacute L2 burst fracture with interval worsening of height loss. 2. Moderate lumbar spondylosis. Reviewed, dictated and finalized at location B.
== END 2022-01-28 13:46 | disposition home or self-care (01) ==
LOC: CHSIMG 13:47
PROVIDERS: PCP Internal Medicine; Visit Provider Internal Medicine
DX: M54.16 Radiculopathy, lumbar region (principal)
CPT/HCPCS: 72131

== ENCOUNTER 2022-02-13 14:05 | Outpatient (RCR) | payer MEDICARE, SELFPAY ==
--- NOTE | 2022-02-13 14:50 | PTOPEVAL ---
Thank you for referring Jamari Andersen to [facility].? The patient is scheduled to be seen for therapy? __3__x/week for 12 visits. Please review, sign, date and return this plan of care CURTIS. I agree with and certify that the following plan of care is medically necessary. 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 CARUSO Respiratory History Hx Pneumonia Yes Gastrointestinal History Hx Gastrointestinal Disorders No Significant History Genitourinary History Hx Benign Prostatic Hyperplasia Yes Musculoskeletal History Hx Musculoskeletal Disorders No Significant History Hematological History Hx Other Hematological Disorders Yes: THROMBOCYTOPENIA Endocrine History Hx Endocrine Disorders No Significant History HEENT History Hx Glaucoma Yes: BILATERAL EYE PROCEDURES Integumentary History Hx Skin Disorders No Significant History Reproductive History Hx Reproductive Disorders No Significant History Psychosocial History Hx Psychiatric Disorders No Significant History Pain History History of Any Previous or Ongoing No Significant History Instance of Pain Anesthesia History Hx Anesthesia Reactions No Significant History Evaluation Information Problem Diagnosis back pain, post L2 fx Onset 10/15/21 Subjective Information Pt. reports that he injured Query Text:As Reported By Patient/ his back in October after Family lifting a heavy cooler into his truck. He states that his pain in the back began to worsen the next day. He reports that he waited a couple days and then underwent xray and ct scan which revealed a fx. He states that the pain has gotten less intense, but is still present. He describes most pain in
--- NOTE | 2022-03-18 14:15 | PTOPEVAL ---
Thank you for referring Jamari Andersen to [facility].? The patient is scheduled to be seen for therapy? ____x/week for ___ weeks. Please review, sign, date and return this plan of care CURTIS. I agree with and certify that the following plan of care is medically necessary. 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 CARUSO Respiratory History Hx Pneumonia Yes Gastrointestinal History Hx Gastrointestinal Disorders No Significant History Genitourinary History Hx Benign Prostatic Hyperplasia Yes Musculoskeletal History Hx Musculoskeletal Disorders No Significant History Hematological History Hx Other Hematological Disorders Yes: THROMBOCYTOPENIA Endocrine History Hx Endocrine Disorders No Significant History HEENT History Hx Glaucoma Yes: BILATERAL EYE PROCEDURES Integumentary History Hx Skin Disorders No Significant History Reproductive History Hx Reproductive Disorders No Significant History Psychosocial History Hx Psychiatric Disorders No Significant History Pain History History of Any Previous or Ongoing No Significant History Instance of Pain Anesthesia History Hx Anesthesia Reactions No Significant History Evaluation Information Problem Diagnosis back pain, post L2 fx Onset 10/15/21 Subjective Information patient reports he continues Query Text:As Reported By Patient/ to have pain in the lower back Family with standing most, then walking, and sitting least. Pain Assessment Timing of Pain Assessment Timing of Pain Assessment Assessment Pain Scale Pain Scale Used Numeric (1 - 10) Self Report Pain Assessment Left Lower Back Reported Pain Level 5 Lowest Pain Intensity 1 Greatest Pain Intensity 9 Pain Score Pain Score 5: Self Report Interventions Used Interventions Used By Clinicians Activity or ADL's,Education, Exercise Balance Assessment Tinetti Balance Assessment Sitting Balance
== END 2022-03-25 13:45 | disposition home or self-care (01) ==
LOC: CHSPT 14:05
PROVIDERS: PCP Internal Medicine; Visit Provider Internal Medicine
DX: M54.9 Dorsalgia, unspecified (principal); S32.029D Unspecified fracture of second lumbar vertebra, subsequent encounter for fracture with routine healing
CPT/HCPCS: 97110; 97112; 97140; 97161; 97530

== ENCOUNTER 2022-03-12 07:08 | Outpatient (CLI) | payer MEDICARE, SELFPAY ==
[2022-03-12 08:08] LABS: Basophils Absolute Auto 0.03 K/mm3 (0.00-0.10); Basophils Percent Auto 0.4 % (0.0-1.0); Eosinophils Percent Auto 1.4 % (1.0-6.0); Hematocrit 40.4 % (37.0-46.0); Hemoglobin 13.1 g/dL (12.4-15.3); Immature Granulocyte Absolute 0.04 K/mm3 (0.00-0.00); Immature Granulocyte Percent A 0.6 % (0.0-0.0); Lymphocytes Absolute Auto 1.64 K/mm3 (1.10-4.50); Lymphocytes Percent Auto 22.6 % (18.0-42.0); Mean Corpuscular HGB Conc 32.4 g/dL (32.0-36.0); Mean Corpuscular Hemoglobin 31.7 pg (27.0-31.0); Mean Corpuscular Volume 97.8 fL (78.0-102.0); Mean Platelet Volume 9.8 fl (8.7-11.0); Monocytes Absolute Auto 0.76 K/mm3 (0.10-0.90); Monocytes Percent Auto 10.5 % (2.0-11.0); Neutrophils Absolute Auto 4.7 K/mm3 (1.7-7.2); Neutrophils Percent Auto 64.5 % (50.0-70.0); Platelet Count Result 171 K/mm3 (150-420); Red Blood Count 4.13 M/mm3 (4.70-6.10); Red Cell Distribution Width 13.7 % (11.6-14.4); White Blood Count 7.3 K/mm3 (4.8-10.8)
[2022-03-12 08:17] LABS: Add Urine Microscopic? NO; Appearance Urine Clear (Clear); Bilirubin Urine Negative (Negative); Blood Urine Negative (Negative); Color Urine Light Yellow (Yellow); Glucose Urine UA Negative (Negative); Ketones Urine Negative (Negative); Leukocyte Esterase Ur Negative (Negative); Nitrate Urine Negative (Negative); Protein Urine Negative (Negative); Specific Grav Ur 1.015 (1.010-1.020); Urobilinogen Urine 0.2 mg/dL (0.2-1.0)
[2022-03-12 08:20] LABS: INR 1.6; Prothrombin Time 16.6 Seconds (9.50-12.10)
[2022-03-12 08:23] LABS: Hemoglobin A1C 5.5 % (<5.7)
[2022-03-12 09:57] LABS: Alanine Aminotransferase 22 U/L (16-63); Albumin Level 3.7 g/dL (3.4-5.0); Alkaline Phosphatase 105 U/L (46-116); Anion Gap 6 mmol/L (8-16); Aspartate Amino Transferase 18 U/L (15-37); Bilirubin,Total 0.4 mg/dL (0.00-1.00); Blood Urea Nitrogen 20 mg/dL (7-18); Calcium 8.6 mg/dL (8.5-10.1); Carbon Dioxide 28 mmol/L (21-32); Chloride 108 mmol/L (98-108); Cholesterol 157 mg/dL (0-200); Creatine Kinase 68 U/L (39-308); Estimated Glomerular Filt Rate > 60; Free T3 2.57 pg/mL (2.18-3.98); Free T4 Free Thyroxine 1.23 ng/dL (0.76-1.46); Glucose 94 mg/dL (70-99); HDL Direct 42 mg/dL (40-60); LDL Cholesterol Calculated 98 mg/dL (<130); Osmolality Calculated 296 mOsm/kg (285-295); Potassium 4.4 mmol/L (3.5-5.1); Sodium 142 mmol/L (136-145); Total Protein 6.4 g/dL (6.4-8.2); Triglycerides 86 mg/dL (0-150); Vitamin B12 324 pg/mL (193-986)
[2022-03-15 21:40] LABS: Vitamin D 25 Hydroxy 31 ng/mL (30-100)
== END 2022-03-12 07:09 | disposition home or self-care (01) ==
LOC: CHSLAB 07:11
PROVIDERS: PCP Internal Medicine; Visit Provider Internal Medicine
DX: E78.2 Mixed hyperlipidemia (principal); R53.82 Chronic fatigue, unspecified; R73.01 Impaired fasting glucose; I10 Essential (primary) hypertension; G40.309 Generalized idiopathic epilepsy and epileptic syndromes, not intractable, without status epilepticus; D69.6 Thrombocytopenia, unspecified; M81.0 Age-related osteoporosis without current pathological fracture
CPT/HCPCS: 36415; 80053; 80061; 81003; 82306; 82550; 82607; 83036; 84439; 84443; 84481; 85025; 85610

== ENCOUNTER 2022-03-13 07:51 | Outpatient (CLI) | payer MEDICARE, SELFPAY ==
--- NOTE | ~2022-03-13 | CT_ITS ---
EXAMINATION: CT lumbar spine wo con DATE: 03/13/2022 08:16 INDICATION: L2 burst fracture. TECHNIQUE: Computed tomography (CT) of the lumbar spine was performed without intravenous contrast. A utomated exposure control and iterative reconstruction technique were employed. The dose-length produ ct was 809.63 mGy-cm. COMPARISON: 01/28/2022 FINDINGS: Unchanged minimal lumbar levocurvature. Unchanged 3 mm retrolisthesis L5 on S1. No interval change in a chronic L2 burst fracture with 60% central vertebral body height loss and 5 mm retropulsion. Remai berto vertebral body heights are normal. There is ballooning and small amount of vacuum phenomena at t he adjacent L1-L2 and L2-L3 disc spaces. Moderate disc height loss at L5-S1. There are few diverticul a along the visualized portion of the sigmoid colon without adjacent from 3 change to suggest diverti culitis. The following disc levels are specifically discussed: T11-T12: The disc does not extend beyond the endplate margin. There is mild bilateral facet joint ost eoarthritis. There is no neural foraminal stenosis. There is no central canal stenosis. T12-L1: The disc does not extend beyond the endplate margin. There is mild bilateral facet joint oste oarthritis. There is mild left neural foraminal stenosis. There is no central canal stenosis. L1-L2: Disc is bulging. There is moderate bilateral facet joint osteoarthritis. There is mild bilater al neural foraminal stenosis. There is mild central canal stenosis. L2-L3: Disc is bulging. There is mild bilateral facet joint osteoarthritis. There is mild bilateral n eural foraminal stenosis. There is mild central canal stenosis. L3-L4: Disc is bulging. There is mild bilateral facet joint osteoarthritis. There is mild bilateral n eural foraminal stenosis. There is mild central canal stenosis. L4-L5: Disc is mildly bulging. There is moderate to severe bilateral facet joint osteoarthritis. Ther e is mild bilateral neural foraminal stenosis. There is mild central canal stenosis. L5-S1: Disc is bulging. There is moderate bilateral facet joint osteoarthritis. There is mild bilater al neural foraminal stenosis. There is mild central canal stenosis. IMPRESSION: 1. Stable appearance of a chronic L2 burst fracture. 2. Unchanged moderate lumbar spondylosis. Reviewed, dictated and finalized at location A.
== END 2022-03-13 07:52 | disposition home or self-care (01) ==
LOC: CHSIMG 07:53
PROVIDERS: PCP Internal Medicine; Visit Provider Internal Medicine
DX: S32.029D Unspecified fracture of second lumbar vertebra, subsequent encounter for fracture with routine healing (principal)
CPT/HCPCS: 72131

== ENCOUNTER 2022-05-23 07:16 | Outpatient (RCR) | payer MEDICARE, SELFPAY ==
[2022-02-26 07:34] LABS: INR 1.9; Prothrombin Time 19.6 Seconds (9.50-12.10)
[2022-03-20 08:32] LABS: INR 2.1; Prothrombin Time 21.6 Seconds (9.50-12.10)
[2022-04-24 07:29] LABS: INR 1.6; Prothrombin Time 17.3 Seconds (9.50-12.10)
[2022-05-01 07:32] LABS: INR 2.9; Prothrombin Time 28.8 Seconds (9.50-12.10)
[2022-05-23 07:42] LABS: INR 2.7; Prothrombin Time 26.9 Seconds (9.50-12.10)
== END 2022-05-27 23:59 | disposition home or self-care (01) ==
LOC: CHSLAB 07:16
PROVIDERS: PCP Internal Medicine; Visit Provider Internal Medicine
DX: Z79.01 Long term (current) use of anticoagulants (principal)
CPT/HCPCS: 36415; 85610

== ENCOUNTER 2022-07-09 07:03 | Outpatient (CLI) | payer MEDICARE, SELFPAY ==
[2022-07-09 07:28] LABS: Prothrombin Time 11.3 Seconds (9.50-12.10)
== END 2022-07-09 07:04 | disposition home or self-care (01) ==
LOC: CHSLAB 07:05
PROVIDERS: PCP Internal Medicine; Visit Provider Pain Medicine Pain Medicine
DX: Z79.01 Long term (current) use of anticoagulants (principal)
CPT/HCPCS: 36415; 85610

== ENCOUNTER 2022-07-30 07:03 | Outpatient (CLI) | payer MEDICARE, SELFPAY ==
[2022-07-30 07:17] LABS: Basophils Absolute Auto 0.02 K/mm3 (0.00-0.10); Basophils Percent Auto 0.3 % (0.0-1.0); Eosinophils Absolute Auto 0.09 K/mm3 (0.02-0.50); Eosinophils Percent Auto 1.2 % (1.0-6.0); Immature Granulocyte Absolute 0.05 K/mm3 (0.00-0.00); Immature Granulocyte Percent A 0.7 % (0.0-0.0); Immature Platelet Fraction Pct 2.6 % (1.0-7.0); Lymphocytes Absolute Auto 1.76 K/mm3 (1.10-4.50); Lymphocytes Percent Auto 23.4 % (18.0-42.0); Mean Corpuscular HGB Conc 32.6 g/dL (32.0-36.0); Mean Corpuscular Hemoglobin 30.6 pg (27.0-31.0); Mean Corpuscular Volume 93.9 fL (78.0-102.0); Mean Platelet Volume 9.9 fl (8.7-11.0); Monocytes Absolute Auto 0.74 K/mm3 (0.10-0.90); Monocytes Percent Auto 9.8 % (2.0-11.0); Neutrophils Absolute Auto 4.9 K/mm3 (1.7-7.2); Neutrophils Percent Auto 64.6 % (50.0-70.0); Platelet Count Result 94 K/mm3 (150-420); Red Blood Count 4.58 M/mm3 (4.70-6.10); Red Cell Distribution Width 13.2 % (11.6-14.4); White Blood Count 7.5 K/mm3 (4.8-10.8)
[2022-07-30 07:30] LABS: INR 2.9; Prothrombin Time 29.6 Seconds (9.50-12.10)
[2022-07-30 07:47] LABS: Alanine Aminotransferase 25 U/L (16-63); Albumin Level 3.6 g/dL (3.4-5.0); Alkaline Phosphatase 107 U/L (46-116); Anion Gap 6 mmol/L (8-16); Aspartate Amino Transferase 17 U/L (15-37); Bilirubin,Total 0.4 mg/dL (0.00-1.00); Blood Urea Nitrogen 21 mg/dL (7-18); Calcium 8.3 mg/dL (8.5-10.1); Carbon Dioxide 30 mmol/L (21-32); Chloride 105 mmol/L (98-108); Estimated Glomerular Filt Rate 57; Glucose 101 mg/dL (70-99); Osmolality Calculated 295 mOsm/kg (285-295); Potassium 4.1 mmol/L (3.5-5.1); Sodium 141 mmol/L (136-145); Total Protein 6.6 g/dL (6.4-8.2)
== END 2022-07-30 07:04 | disposition home or self-care (01) ==
LOC: CHSLAB 07:05
PROVIDERS: PCP Internal Medicine; Visit Provider Internal Medicine Hematology & Oncology
DX: D69.3 Immune thrombocytopenic purpura (principal); Z79.01 Long term (current) use of anticoagulants
CPT/HCPCS: 36415; 80053; 85025; 85055; 85610

== ENCOUNTER 2022-08-28 07:29 | Outpatient (RCR) | payer MEDICARE, SELFPAY ==
[2022-06-26 08:09] LABS: INR 1.7
[2022-08-28 07:55] LABS: INR 2.7; Prothrombin Time 27.1 Seconds (9.50-12.10)
== END 2022-09-24 23:59 | disposition home or self-care (01) ==
LOC: CHSLAB 07:29
PROVIDERS: PCP Internal Medicine; Visit Provider Internal Medicine
DX: Z51.81 Encounter for therapeutic drug level monitoring (principal); Z79.01 Long term (current) use of anticoagulants
CPT/HCPCS: 36415; 85610

== ENCOUNTER 2022-10-02 07:08 | Outpatient (CLI) | payer MEDICARE, SELFPAY ==
[2022-10-02 07:54] LABS: Basophils Absolute Auto 0.03 K/mm3 (0.00-0.10); Basophils Percent Auto 0.4 % (0.0-1.0); Eosinophils Absolute Auto 0.12 K/mm3 (0.02-0.50); Eosinophils Percent Auto 1.4 % (1.0-6.0); Hematocrit 43.7 % (37.0-46.0); Immature Granulocyte Absolute 0.05 K/mm3 (0.00-0.00); Immature Granulocyte Percent A 0.6 % (0.0-0.0); Immature Platelet Fraction Pct 1.9 % (1.0-7.0); Lymphocytes Absolute Auto 1.53 K/mm3 (1.10-4.50); Lymphocytes Percent Auto 18.4 % (18.0-42.0); Mean Corpuscular Hemoglobin 30.7 pg (27.0-31.0); Mean Corpuscular Volume 95.8 fL (78.0-102.0); Mean Platelet Volume 10.3 fl (8.7-11.0); Monocytes Absolute Auto 0.76 K/mm3 (0.10-0.90); Monocytes Percent Auto 9.1 % (2.0-11.0); Neutrophils Absolute Auto 5.8 K/mm3 (1.7-7.2); Neutrophils Percent Auto 70.1 % (50.0-70.0); Platelet Count Result 106 K/mm3 (150-420); Red Blood Count 4.56 M/mm3 (4.70-6.10); Red Cell Distribution Width 13.1 % (11.6-14.4); White Blood Count 8.3 K/mm3 (4.8-10.8)
[2022-10-02 08:04] LABS: INR 2.4; Prothrombin Time 24.9 Seconds (9.50-12.10)
[2022-10-02 08:06] LABS: Add Urine Microscopic? NO; Appearance Urine Clear (Clear); Bilirubin Urine Negative (Negative); Blood Urine Negative (Negative); Color Urine Light Yellow (Yellow); Glucose Urine UA Negative (Negative); Hemoglobin A1C 5.2 % (<5.7); Ketones Urine Negative (Negative); Leukocyte Esterase Ur Negative (Negative); Nitrate Urine Negative (Negative); Protein Urine Negative (Negative); Specific Grav Ur 1.015 (1.010-1.020); Urobilinogen Urine 0.2 mg/dL (0.2-1.0); pH Urine 6.5 (5.0-8.0)
[2022-10-02 08:47] LABS: Alanine Aminotransferase 23 U/L (16-63); Albumin Level 3.6 g/dL (3.4-5.0); Alkaline Phosphatase 111 U/L (46-116); Anion Gap 6 mmol/L (8-16); Aspartate Amino Transferase 18 U/L (15-37); Bilirubin,Total 0.4 mg/dL (0.00-1.00); Blood Urea Nitrogen 18 mg/dL (7-18); Calcium 8.2 mg/dL (8.5-10.1); Carbon Dioxide 30 mmol/L (21-32); Chloride 104 mmol/L (98-108); Cholesterol 160 mg/dL (0-200); Creatine Kinase 73 U/L (39-308); Estimated Glomerular Filt Rate 57; Free T3 2.59 pg/mL (2.18-3.98); Free T4 Free Thyroxine 1.08 ng/dL (0.76-1.46); Glucose 105 mg/dL (70-99); HDL Direct 39 mg/dL (40-60); LDL Cholesterol Calculated 102 mg/dL (<130); Osmolality Calculated 291 mOsm/kg (285-295); Potassium 3.9 mmol/L (3.5-5.1); Prostate Specific Antigen 0.9 ng/mL (< OR = 4.0); Sodium 140 mmol/L (136-145); Total Protein 6.6 g/dL (6.4-8.2); Triglycerides 95 mg/dL (0-150); Vitamin B12 1128 pg/mL (193-986)
== END 2022-10-02 07:09 | disposition home or self-care (01) ==
LOC: CHSLAB 07:11
PROVIDERS: PCP Internal Medicine; Visit Provider Internal Medicine
DX: R73.01 Impaired fasting glucose (principal); I10 Essential (primary) hypertension; E78.2 Mixed hyperlipidemia; D69.6 Thrombocytopenia, unspecified; N40.1 Benign prostatic hyperplasia with lower urinary tract symptoms; G40.309 Generalized idiopathic epilepsy and epileptic syndromes, not intractable, without status epilepticus; Z12.5 Encounter for screening for malignant neoplasm of prostate
CPT/HCPCS: 36415; 80053; 80061; 81003; 82550; 82607; 83036; 84153; 84439; 84443; 84481; 85025; 85055; 85610; G0103

== ENCOUNTER 2022-11-26 07:03 | Outpatient (CLI) | payer MEDICARE, SELFPAY ==
[2022-11-26 07:37] LABS: INR 3.4; Prothrombin Time 33.9 Seconds (9.50-12.10)
[2022-11-26 07:53] LABS: Alanine Aminotransferase 35 U/L (16-63); Albumin Level 3.6 g/dL (3.4-5.0); Alkaline Phosphatase 97 U/L (46-116); Anion Gap 8 mmol/L (8-16); Aspartate Amino Transferase 28 U/L (15-37); Bilirubin,Total 0.4 mg/dL (0.00-1.00); Blood Urea Nitrogen 26 mg/dL (7-18); Calcium 8.3 mg/dL (8.5-10.1); Carbon Dioxide 29 mmol/L (21-32); Chloride 105 mmol/L (98-108); Estimated Glomerular Filt Rate 59; Glucose 106 mg/dL (70-99); Osmolality Calculated 298 mOsm/kg (285-295); Potassium 4.4 mmol/L (3.5-5.1); Sodium 142 mmol/L (136-145); Total Protein 6.8 g/dL (6.4-8.2)
[2022-11-28 19:29] LABS: Ionized Calcium 4.8 mg/dL (4.7-5.5)
== END 2022-11-26 07:04 | disposition home or self-care (01) ==
LOC: CHSLAB 07:05
PROVIDERS: PCP Internal Medicine; Visit Provider Internal Medicine
DX: D69.6 Thrombocytopenia, unspecified (principal); Z79.01 Long term (current) use of anticoagulants
CPT/HCPCS: 36415; 80053; 82330; 85610

== ENCOUNTER 2023-01-26 13:46 | Outpatient (CLI) | payer MEDICARE, SELFPAY ==
--- NOTE | ~2023-01-26 | CT_ITS ---
EXAMINATION: CT brain wo con INDICATION: Left ocular pain COMPARISON: 08/28/2020 TECHNIQUE: Standard unenhanced head CT. The dose-length product (DLP) was 681.00 mGy-cm. The mA was a djusted according to patient size. Iterative reconstruction technique was employed. FINDINGS: There is no acute intraparenchymal hemorrhage. No evidence of mass lesion. No evidence of a cute infarction. There are areas of prior infarction in the left frontal, parietal, and occipital lob es and in the right occipital lobe. There is mild periventricular and subcortical hypodensity probabl y related to small vessel ischemic disease. There is moderate prominence of the sulci and ventricles related to cerebral atrophy. Intracranial calcified cerebral atherosclerosis is noted. There are no e xtra-axial collections. There is no mass effect or midline shift. Changes in the globes are likely fr om ocular lens surgery. There are surgical changes of partial right mastoidectomy. IMPRESSION: 1. Areas of prior infarction without acute intracranial abnormality. 2. Age related findings. Reviewed, dictated and finalized at location A.
[2023-01-26 14:06] LABS: Basophils Absolute Auto 0.03 K/mm3 (0.00-0.10); Basophils Percent Auto 0.4 % (0.0-1.0); Eosinophils Absolute Auto 0.08 K/mm3 (0.02-0.50); Hematocrit 42.3 % (37.0-46.0); Hemoglobin 13.5 g/dL (12.4-15.3); Immature Granulocyte Absolute 0.05 K/mm3 (0.00-0.00); Immature Granulocyte Percent A 0.6 % (0.0-0.0); Lymphocytes Absolute Auto 1.74 K/mm3 (1.10-4.50); Lymphocytes Percent Auto 21.5 % (18.0-42.0); Mean Corpuscular HGB Conc 31.9 g/dL (32.0-36.0); Mean Corpuscular Hemoglobin 30.9 pg (27.0-31.0); Mean Corpuscular Volume 96.8 fL (78.0-102.0); Mean Platelet Volume 9.5 fl (8.7-11.0); Monocytes Absolute Auto 0.75 K/mm3 (0.10-0.90); Monocytes Percent Auto 9.3 % (2.0-11.0); Neutrophils Absolute Auto 5.4 K/mm3 (1.7-7.2); Neutrophils Percent Auto 67.2 % (50.0-70.0); Platelet Count Result 105 K/mm3 (150-420); Red Blood Count 4.37 M/mm3 (4.70-6.10); Red Cell Distribution Width 13.4 % (11.6-14.4); White Blood Count 8.1 K/mm3 (4.8-10.8)
[2023-01-26 14:23] LABS: Alanine Aminotransferase 31 U/L (16-63); Albumin Level 3.5 g/dL (3.4-5.0); Alkaline Phosphatase 124 U/L (46-116); Anion Gap 7 mmol/L (8-16); Aspartate Amino Transferase 20 U/L (15-37); Bilirubin,Total 0.3 mg/dL (0.00-1.00); Blood Urea Nitrogen 22 mg/dL (7-18); Calcium 8.7 mg/dL (8.5-10.1); Carbon Dioxide 30 mmol/L (21-32); Chloride 107 mmol/L (98-108); Estimated Glomerular Filt Rate 60; Glucose 94 mg/dL (70-99); Osmolality Calculated 301 mOsm/kg (285-295); Potassium 4.2 mmol/L (3.5-5.1); Sodium 144 mmol/L (136-145); Total Protein 7.2 g/dL (6.4-8.2)
[2023-01-26 14:24] LABS: CRP < 0.5 mg/dL (0.0-0.9)
[2023-01-26 15:10] LABS: Erythrocyte Sedimentation Rate 28 mm/hr (0-20)
== END 2023-01-26 13:47 | disposition home or self-care (01) ==
LOC: CHSLAB 13:49
PROVIDERS: PCP Internal Medicine; Visit Provider Internal Medicine
DX: R51.9 Headache, unspecified (principal); Z86.73 Personal history of transient ischemic attack (TIA), and cerebral infarction without residual deficits
CPT/HCPCS: 36415; 70450; 80053; 85025; 85652; 86140

== ENCOUNTER 2023-02-26 13:52 | Outpatient (CLI) | payer MEDICARE, SELFPAY ==
[2023-02-26 14:13] LABS: Basophils Absolute Auto 0.01 K/mm3 (0.00-0.10); Basophils Percent Auto 0.1 % (0.0-1.0); Hematocrit 41.7 % (37.0-46.0); Hemoglobin 13.8 g/dL (12.4-15.3); Immature Granulocyte Absolute 0.07 K/mm3 (0.00-0.00); Immature Granulocyte Percent A 0.9 % (0.0-0.0); Lymphocytes Absolute Auto 1.35 K/mm3 (1.10-4.50); Lymphocytes Percent Auto 17.7 % (18.0-42.0); Mean Corpuscular HGB Conc 33.1 g/dL (32.0-36.0); Mean Corpuscular Hemoglobin 31.4 pg (27.0-31.0); Monocytes Absolute Auto 0.37 K/mm3 (0.10-0.90); Monocytes Percent Auto 4.8 % (2.0-11.0); Neutrophils Absolute Auto 5.8 K/mm3 (1.7-7.2); Neutrophils Percent Auto 76.5 % (50.0-70.0); Platelet Count Result 131 K/mm3 (150-420); Red Blood Count 4.39 M/mm3 (4.70-6.10); Red Cell Distribution Width 14.2 % (11.6-14.4); White Blood Count 7.6 K/mm3 (4.8-10.8)
[2023-02-26 15:08] LABS: CRP < 0.5 mg/dL (0.0-0.9)
[2023-02-26 15:42] LABS: Erythrocyte Sedimentation Rate 14 mm/hr (0-20)
[2023-02-27 13:56] LABS: INR 3.9; Prothrombin Time 38.7 Seconds (9.50-12.10)
== END 2023-02-26 13:53 | disposition home or self-care (01) ==
LOC: CHSLAB 13:53
PROVIDERS: PCP Internal Medicine; Visit Provider Internal Medicine
DX: D69.6 Thrombocytopenia, unspecified (principal); R51.9 Headache, unspecified; Z79.01 Long term (current) use of anticoagulants
CPT/HCPCS: 36415; 85025; 85610; 85652; 86140

== ENCOUNTER 2023-03-03 07:54 | Outpatient (RCR) | payer MEDICARE, SELFPAY ==
--- NOTE | 2023-03-03 17:03 | PTOPEVAL1 ---
Assessment and note entered by Mic Valdez Evaluation Information Assessment Status Evaluation Diagnosis dizziness Onset 01/14/23 Subjective Information Pt. reports that he was sitting in his chair around the end of december and noticed a pain in the left eye. He reports that he woke the next day and experienced dizziness with looking up and down . He reports that he went to the family doctor and eye doctor who gave him prednisone and antibiotics. He reports that his dizziness has improved since December. He reports that he has only fallen twice since developing the symptoms. He recalls no dizziness with laying in bed. He states that he gett Reported Pain Level Pain Score 0: Self Report Assessment PT Clinical Summary Pt. is an 82 year old male who enters the clinic with dizziness. Pt. demosntratse indication of somatonsenory deconditioning and testing for BPPV is negative. He currently presents with impaired gait, imapired balance, impaired strength and high fall risk. Continued skilled PT is indicated in order to improve these areas to allow the pt. to achieve improved safety with IADL performance. Plan of Care Interventions Gait Training,Neuro Re-education,Patient/Caregiver Educati,Therapeutic Activities,Therapeutic Exercise,Self-Care/Home Management PT Services Indicated Yes Treatment Frequency and 2x/week x 10 visits Duration These treatments will address the objective and functional deficits as defined above. The patient will be advanced safely and appropriately in order for the patient to progress towards his/her prior level of function. Additional exercises will be introduced and as well as a comprehensive home exercise program upon discharge, if needed, ?to ensure carryover of functional gains achieved in the clinic. This treatment plan has been reviewed and agreement upon by the patient.
--- NOTE | 2023-03-03 17:03 | OPREHPOC ---
Outpatient Therapy Plan of Care This is a Multidisciplinary Plan of Care that may contain components documented by all disciplines (PT, OT, and ST.) PT Problem 1 PT Problem #1 Knowledge Deficit PT Goal 1 Goal Independent with a HEP addressing strength and mobility. Target Visit 2 PT Problem 2 PT Problem #2 Impaired Balance PT Goal 1 Goal Demonstrate ability to maintain balance with nbos on foam x 2 minutes without support Target Visit 10 PT Goal 2 Goal Pt. will increase tinetti score to 20 or greater indicating decreased fall risk and improved function. Target Visit 10 PT Problem 3 PT Problem #3 Impaired Functional Mobil PT Goal 1 Goal Pt. will safely reach to the floor without LOB Target Visit 10
== END 2023-04-06 10:19 | disposition home or self-care (01) ==
LOC: CHSPT 07:54
PROVIDERS: PCP Internal Medicine; Visit Provider Internal Medicine
DX: R42 Dizziness and giddiness (principal); Z79.01 Long term (current) use of anticoagulants
CPT/HCPCS: 36415; 85610; 97110; 97112; 97150; 97161; 97530

== ENCOUNTER 2023-03-11 07:14 | Outpatient (RCR) | payer MEDICARE, SELFPAY ==
[2023-03-11 07:46] LABS: INR 2.7; Prothrombin Time 27.8 Seconds (9.50-12.10)
== END 2023-06-09 23:59 | disposition home or self-care (01) ==
LOC: CHSLAB 07:14
PROVIDERS: PCP Internal Medicine; Visit Provider Internal Medicine
DX: Z51.81 Encounter for therapeutic drug level monitoring (principal); D69.6 Thrombocytopenia, unspecified; Z79.01 Long term (current) use of anticoagulants
CPT/HCPCS: 99199; 36415; 85610

== ENCOUNTER 2023-03-16 12:51 | Outpatient (CLI) | payer MEDICARE, SELFPAY ==
--- NOTE | 2023-03-16 12:00 | ECHO_ITS ---
Patient Info Name: Jamari Andersen Age: 82 years : 1940 Gender: Male Ht: 71 in Wt: 188 lbs BSA: 2.08 m2 HR: 93 bpm BP: 168 / 86 mmHg Technical Quality: Good Exam Date: 03/16/2023 12:45 PM Exam Location: [facility] Patient Status: Outpatient Admit Date: 03/16/2023 Staff Ordering Physician: Abi Bender MD Museum Assistant: Cece Basilio RDCS Attending Provider: Abi Bender MD Referring Physician: Napoleon HANNON; Exam Type: CA echo doppler color flow Study Info Indications - dilated cardiomyopathy Complete two-dimensional, color flow and Doppler transthoracic echocardiogram is performed. Summary 1. Complete two-dimensional, color flow and Doppler transthoracic echocardiogram is performed. 2. Left ventricular chamber dimension is normal. 3. Left ventricular systolic function is normal, estimated at 60-65%. 4. The left ventricular diastolic function is grade I diastolic dysfunction. 5. E/e' 8 is minimally elevated. 6. Left atrial chamber dimension is mildly enlarged. 7. There is mild mitral valve regurgitation. 8. There is mild tricuspid valve regurgitation. 9. No pulmonary hypertension, estimated pulmonary arterial systolic pressure is 30 mmHg. 10. There is trace pulmonic regurgitation. Left Ventricle E/e' 8 is minimally elevated. Left ventricular chamber dimension is normal. Left ventricular systolic function is normal, estimated at 60-65%. The left ventricular diastolic function is grade I diastolic dysfunction. Right Ventricle Right ventricular systolic function is normal and with normal TAPSE 2.2 cm. Right ventricular chamber dimension is normal. Left Atria Left atrial chamber dimension is mildly enlarged. Right Atria Right atrial chamber dimension is normal. Aortic Valve The aortic valve is trileaflet. There is no aortic valve stenosis. There is no aortic valve regurgitation. Pulmonic Valve There is trace pulmonic regurgitation. Mitral Valve There is no mitral valve stenosis. There is mild mitral valve regurgitation. Tricuspid Valve There is mild tricuspid valve regurgitation. No pulmonary hypertension, estimated pulmonary arterial systolic pressure is 30 mmHg. Pericardium/Pleural There is no pericardial effusion. Inferior Vena Cava Normal inferior vena cava with >50% collapse upon inspiration consistent with normal right atrial pressure, 5 mmHg. Aorta The aortic root size at the sinus of Valsalva is normal. Left Ventricular Outflow Tract Name Value Normal LVOT 2D LVOT Diameter 2.1 cm LVOT Doppler LVOT Peak Velocity 106 cm/s LVOT Peak Gradient 3 mmHg LVOT Mean Gradient 2 mmHg LVOT VTI 24 cm LVOT VTI/AV VTI Ratio 0.9 LVOT Stroke Volume 85 ml Pulmonic Valve Name Value Normal RVOT Doppler RVOT Peak Gradient 3 mmHg
== END 2023-03-16 12:52 | disposition home or self-care (01) ==
LOC: CHSIMG 12:53
PROVIDERS: PCP Internal Medicine; Visit Provider Internal Medicine Cardiovascular Disease
DX: I42.0 Dilated cardiomyopathy (principal); I08.1 Rheumatic disorders of both mitral and tricuspid valves
CPT/HCPCS: 93306

== ENCOUNTER 2023-04-08 07:02 | Outpatient (CLI) | payer MEDICARE, SELFPAY ==
[2023-04-08 07:23] LABS: Appearance Urine Clear (Clear); Basophils Absolute Auto 0.02 K/mm3 (0.00-0.10); Basophils Percent Auto 0.3 % (0.0-1.0); Bilirubin Urine Negative (Negative); Blood Urine Negative (Negative); Color Urine Light Yellow (Yellow); Eosinophils Absolute Auto 0.08 K/mm3 (0.02-0.50); Eosinophils Percent Auto 1.1 % (1.0-6.0); Glucose Urine UA Negative (Negative); Hematocrit 40.1 % (37.0-46.0); Hemoglobin 13.2 g/dL (12.4-15.3); Immature Granulocyte Absolute 0.08 K/mm3 (0.00-0.00); Immature Granulocyte Percent A 1.1 % (0.0-0.0); Ketones Urine Negative (Negative); Leukocyte Esterase Ur Negative (Negative); Lymphocytes Absolute Auto 1.52 K/mm3 (1.10-4.50); Lymphocytes Percent Auto 20.4 % (18.0-42.0); Mean Corpuscular HGB Conc 32.9 g/dL (32.0-36.0); Mean Corpuscular Hemoglobin 31.6 pg (27.0-31.0); Mean Corpuscular Volume 95.9 fL (78.0-102.0); Mean Platelet Volume 9.5 fl (8.7-11.0); Monocytes Absolute Auto 0.71 K/mm3 (0.10-0.90); Monocytes Percent Auto 9.5 % (2.0-11.0); Neutrophils Percent Auto 67.6 % (50.0-70.0); Nitrate Urine Negative (Negative); Platelet Count Result 100 K/mm3 (150-420); Protein Urine Negative (Negative); Red Blood Count 4.18 M/mm3 (4.70-6.10); Red Cell Distribution Width 14.3 % (11.6-14.4); Specific Grav Ur <= 1.005 (1.010-1.020); Urobilinogen Urine 0.2 mg/dL (0.2-1.0); White Blood Count 7.5 K/mm3 (4.8-10.8); pH Urine 6.5 (5.0-8.0)
[2023-04-08 07:26] LABS: Add Urine Microscopic? NO
[2023-04-08 07:34] LABS: INR 2.6
[2023-04-08 07:36] LABS: Creatinine Urine 30.43 mg/dL (40-278)
[2023-04-08 07:40] LABS: Hemoglobin A1C 6.1 % (<5.7)
[2023-04-08 07:44] LABS: MALB Creatinine Ratio 42.7 mg/g (0-30); Microalbumin Urine Random < 13.0 mg/L
[2023-04-08 08:17] LABS: Alanine Aminotransferase 20 U/L (16-63); Albumin Level 3.4 g/dL (3.4-5.0); Alkaline Phosphatase 81 U/L (46-116); Anion Gap 7 mmol/L (8-16); Aspartate Amino Transferase 17 U/L (15-37); Bilirubin,Total 0.5 mg/dL (0.00-1.00); Blood Urea Nitrogen 23 mg/dL (7-18); Calcium 8.4 mg/dL (8.5-10.1); Carbon Dioxide 30 mmol/L (21-32); Chloride 107 mmol/L (98-108); Cholesterol 172 mg/dL (0-200); Creatine Kinase 56 U/L (39-308); Estimated Glomerular Filt Rate 52; Free T3 2.46 pg/mL (2.18-3.98); Free T4 Free Thyroxine 0.96 ng/dL (0.76-1.46); Glucose 118 mg/dL (70-99); HDL Direct 46 mg/dL (40-60); LDL Cholesterol Calculated 103 mg/dL (<130); Osmolality Calculated 302 mOsm/kg (285-295); Potassium 4.2 mmol/L (3.5-5.1); Sodium 144 mmol/L (136-145); Thyroid Stimulating Hormone 2.39 uIU/mL (0.36-3.74); Triglycerides 115 mg/dL (0-150)
[2023-04-08 08:18] LABS: CRP < 0.5 mg/dL (0.0-0.9)
[2023-04-08 08:29] LABS: Erythrocyte Sedimentation Rate 16 mm/hr (0-20)
== END 2023-04-08 07:03 | disposition home or self-care (01) ==
LOC: CHSLAB 07:04
PROVIDERS: PCP Internal Medicine; Visit Provider Internal Medicine
DX: R53.82 Chronic fatigue, unspecified (principal); E83.51 Hypocalcemia; D69.6 Thrombocytopenia, unspecified; E78.2 Mixed hyperlipidemia; I10 Essential (primary) hypertension; R57.9 Shock, unspecified; R73.01 Impaired fasting glucose
CPT/HCPCS: 36415; 80053; 80061; 81003; 82043; 82550; 83036; 84439; 84443; 84481; 85025; 85610; 85652; 86140

== ENCOUNTER 2023-05-13 07:50 | Outpatient (CLI) | payer MEDICARE, SELFPAY ==
[2023-05-13 08:03] LABS: Basophils Absolute Auto 0.04 K/mm3 (0.00-0.10); Basophils Percent Auto 0.4 % (0.0-1.0); Eosinophils Absolute Auto 0.15 K/mm3 (0.02-0.50); Eosinophils Percent Auto 1.4 % (1.0-6.0); Hematocrit 40.6 % (37.0-46.0); Hemoglobin 13.3 g/dL (12.4-15.3); Immature Granulocyte Absolute 0.09 K/mm3 (0.00-0.00); Immature Granulocyte Percent A 0.9 % (0.0-0.0); Lymphocytes Absolute Auto 1.62 K/mm3 (1.10-4.50); Lymphocytes Percent Auto 15.7 % (18.0-42.0); Mean Corpuscular HGB Conc 32.8 g/dL (32.0-36.0); Mean Corpuscular Hemoglobin 31.5 pg (27.0-31.0); Mean Corpuscular Volume 96.2 fL (78.0-102.0); Mean Platelet Volume 8.9 fl (8.7-11.0); Monocytes Percent Auto 6.8 % (2.0-11.0); Neutrophils Absolute Auto 7.8 K/mm3 (1.7-7.2); Neutrophils Percent Auto 74.8 % (50.0-70.0); Platelet Count Result 132 K/mm3 (150-420); Red Blood Count 4.22 M/mm3 (4.70-6.10); Red Cell Distribution Width 14.2 % (11.6-14.4); White Blood Count 10.4 K/mm3 (4.8-10.8)
[2023-05-13 08:23] LABS: INR 2.8; Prothrombin Time 28.3 Seconds (9.50-12.10)
[2023-05-13 08:41] LABS: CRP < 0.5 mg/dL (0.0-0.9)
[2023-05-13 09:02] LABS: Erythrocyte Sedimentation Rate 22 mm/hr (0-20)
== END 2023-05-13 07:51 | disposition home or self-care (01) ==
LOC: CHSLAB 07:52
PROVIDERS: PCP Internal Medicine; Visit Provider Internal Medicine
DX: D69.6 Thrombocytopenia, unspecified (principal); I63.9 Cerebral infarction, unspecified; I67.9 Cerebrovascular disease, unspecified; Z79.01 Long term (current) use of anticoagulants
CPT/HCPCS: 36415; 85025; 85610; 85652; 86140

== ENCOUNTER 2023-06-24 07:05 | Outpatient (CLI) | payer MEDICARE, SELFPAY ==
[2023-06-24 07:20] LABS: Basophils Absolute Auto 0.03 K/mm3 (0.00-0.10); Basophils Percent Auto 0.4 % (0.0-1.0); Eosinophils Absolute Auto 0.11 K/mm3 (0.02-0.50); Eosinophils Percent Auto 1.3 % (1.0-6.0); Hematocrit 41.7 % (37.0-46.0); Hemoglobin 13.7 g/dL (12.4-15.3); Immature Granulocyte Absolute 0.06 K/mm3 (0.00-0.00); Immature Granulocyte Percent A 0.7 % (0.0-0.0); Immature Platelet Fraction Pct 1.9 % (1.0-7.0); Lymphocytes Absolute Auto 1.82 K/mm3 (1.10-4.50); Lymphocytes Percent Auto 22.2 % (18.0-42.0); Mean Corpuscular HGB Conc 32.9 g/dL (32.0-36.0); Mean Corpuscular Hemoglobin 31.6 pg (27.0-31.0); Mean Corpuscular Volume 96.1 fL (78.0-102.0); Mean Platelet Volume 9.1 fl (8.7-11.0); Monocytes Absolute Auto 0.86 K/mm3 (0.10-0.90); Monocytes Percent Auto 10.5 % (2.0-11.0); Neutrophils Absolute Auto 5.3 K/mm3 (1.7-7.2); Neutrophils Percent Auto 64.9 % (50.0-70.0); Platelet Count Result 108 K/mm3 (150-420); Red Blood Count 4.34 M/mm3 (4.70-6.10); Red Cell Distribution Width 12.8 % (11.6-14.4); White Blood Count 8.2 K/mm3 (4.8-10.8)
[2023-06-24 07:28] LABS: INR 2.7; Prothrombin Time 27.2 Seconds (9.50-12.10)
[2023-06-24 08:17] LABS: Erythrocyte Sedimentation Rate 14 mm/hr (0-20)
[2023-06-24 08:22] LABS: CRP < 0.1 mg/dL (0.0-0.9)
== END 2023-06-24 07:06 | disposition home or self-care (01) ==
LOC: CHSLAB 07:07
PROVIDERS: PCP Internal Medicine; Visit Provider Internal Medicine
DX: R51.9 Headache, unspecified (principal); I63.9 Cerebral infarction, unspecified; D69.6 Thrombocytopenia, unspecified
CPT/HCPCS: 36415; 85025; 85055; 85610; 85652; 86140

== ENCOUNTER 2023-08-26 07:07 | Outpatient (RCR) | payer MEDICARE, SELFPAY ==
[2023-07-22 07:44] LABS: INR 2.2; Prothrombin Time 22.5 Seconds (9.50-12.10)
[2023-08-26 07:36] LABS: INR 2.2; Prothrombin Time 22.3 Seconds (9.50-12.10)
== END 2023-10-20 23:59 | disposition home or self-care (01) ==
LOC: CHSLAB 07:07
PROVIDERS: PCP Internal Medicine; Visit Provider Internal Medicine
DX: Z51.81 Encounter for therapeutic drug level monitoring (principal); D69.6 Thrombocytopenia, unspecified; Z79.01 Long term (current) use of anticoagulants
CPT/HCPCS: 36415; 85610

== ENCOUNTER 2023-09-19 09:23 | Emergency (ER) | payer MEDICARE, SELFPAY ==
--- NOTE | ~2023-09-19 | CT_ITS ---
EXAMINATION: CT brain wo con INDICATION: Acute frontal headache COMPARISON: 01/26/2023 TECHNIQUE: Standard unenhanced head CT. The dose-length product (DLP) was 681.00 mGy-cm. The mA was a djusted according to patient size. Iterative reconstruction technique was employed. FINDINGS: No acute intraparenchymal hemorrhage. No evidence of mass lesion. No evidence of acute infa rction. Again noted are areas of prior infarction in the left frontal, parietal, and occipital lobes and in the right occipital lobe. There is mild periventricular and subcortical hypodensity probably r elated to small vessel ischemic disease. There is moderate prominence of the sulci and ventricles rel ated to cerebral atrophy. Intracranial calcified cerebral atherosclerosis is noted. No extra-axial co llections. No mass effect or midline shift. Changes in the globes are likely from ocular lens surgery . There are surgical changes of partial right mastoidectomy. IMPRESSION: 1. Areas of prior infarction without acute intracranial abnormality. 2. Age related findings. Reviewed, dictated and finalized at location F. RONMENTAL SERVICES MANAGER
[2023-09-19 09:27] VITALS: BP 149/80; PULSE 74; RESP 17; TEMP 36.7; O2SAT 98
--- NOTE | 2023-09-19 09:28 | ED.HA ---
HPI - Headache General Chief Complaint: Headache Stated Complaint: Headache Time Seen by Provider: 09/19/23 09:28 Source: patient Mode of arrival: ambulatory Limitations: no limitations History of Present Illness HPI Narrative: 83-year-old male with a history of pre diabetes, ITP, dyslipidemia, cardiomyopath with an EF of 40%y, complete heart block status post pacemaker, CVA with TIA on Coumadin presents to the ER with -- headache since 12:30 a.m. Pain is rated as 9.5/10. Pain started acutely and has been severe since then. No nausea/ vomiting. No fever. No prior history of headaches. Last INR check was 3 weeks ago. MD elicited complaint: headache Pertinent past history: hypertension and coagulopathy Onset (ago): hour(s) ( Started 9 hours ago.) Time: 12:30 Onset description: suddenly Location: frontal Severity: severe Pain scale (0-10): 10 Quality & Timing: aching Exacerbating factors: none Relieving factors: nothing Context: occurred at rest Associated symptoms: none Related Data Home Medications Medication Instructions Recorded Confirmed brimonidine 0.2 % eye drops 1 drp ophthalmic (eye) Q8H 02/29/20 09/19/23 finasteride 5 mg tablet (Proscar) 5 mg PO DAILY 02/29/20 09/19/23 latanoprost 0.005 % eye drops 1 drp ophthalmic (eye) BID 02/29/20 09/19/23 (Xalatan) simvastatin 20 mg tablet (Zocor) 20 mg PO QPM 02/29/20 09/19/23 timolol 0.5 % eye drops 1 drp ophthalmic (eye) DAILY 02/29/20 09/19/23 warfarin 4 mg tablet 4.5 mg PO DAILY 02/29/20 09/19/23 losartan 25 mg tablet 50 mg PO DAILY 03/01/20 10/06/22 lamotrigine 150 mg tablet 150 mg PO BID 01/15/21 09/19/23 tamsulosin 0.4 mg capsule 0.4 mg PO DAILY 01/15/21 09/19/23 amlodipine 10 mg tablet 10 mg PO DAILY 09/19/23 09/19/23 Allergies Allergy/AdvReac Type Severity Reaction Status Date / Time No Known Allergies Allergy Verified 09/19/23 09:39 Review of Systems Review of Systems: All systems reviewed & are unremarkable except as noted in HPI and below Constitutional: Constitutional: Reports as per HPI and Reports no additional constitutional complaints Eyes: Eyes: Reports as per HPI and Reports no additional eye complaints ENT: Reports system reviewed and no additional complaints, except as documented and Reports as per HPI Cardiovascular: Cardiovascular: Reports as per HPI and Reports no additional cardiovascular complaints Respiratory: Respiratory: Reports as per HPI and Reports no additional respiratory complaints Gastrointestinal: Gastrointestinal: Reports as per HPI and Reports no additional gastrointestinal complaints Genitourinary: Genitourinary: Reports no additional male genitourinary complaints and Reports as per HPI Musculoskeletal: Musculoskeletal: Reports no additional musculoskeletal complaints and Reports as per HPI Integumentary/Breasts: Skin/Breast: Reports system reviewed and no additional complaints, except as docu and Reports as per HPI Neurologic: Reports system reviewed and no additional complaints, except as documented, Reports as per HPI and Reports headache(s) Psychiatric: Psychiatric: Reports no additional psychiatric complaints and Reports as per HPI Endocrine: Endocrine: Reports no additional endocrine complaints and Reports as per HPI Hematologic/Lymphatic: Hematologic/Lymphatic: Reports no additional hematologic/lymphatic complaints and Reports as per HPI Allergic/Immunologic: Allergic/Immunologic: Reports no additional allergic/immunologic complaints and Reports as per HPI PMFSH Past Medical History Medical History Cardiomyopathy 03/2019 EF 40% by echo Complete heart block [employer] pacemaker 2009 CVA (cerebral vascular accident) History of TIA, then CVA 07/2018, treated with warfarin Hyperlipidemia Pacemaker 2009 [employer] pacemaker, 2019 generator change Pre-diabetes Seizure Thrombocytopenia Has ITP treated by MAVERICK Santos in [facility]
--- NOTE | 2023-09-19 09:54 | ECG_ITS ---
Measurements Intervals [place] Rate: 72 P: 46 IN: 202 QRS: -76 QRSD: 167 T: 105 QT: 415 QTc: 454 Interpretive Statements ELECTRONIC VENTRICULAR PACEMAKER Electronically Signed On 09-19-2023 12:24:49 GIMP TACKER by Jake De Leon M.D.
[2023-09-19 10:00] VITALS: BP 107/80; PULSE 78; RESP 17; O2SAT 98
[2023-09-19] MEDS: ONDANSETRON HCL ODT 4 MG TABLET PO (10:03)
[2023-09-19 10:16] LABS: Basophils Absolute Auto 0.03 K/mm3 (0.00-0.10); Basophils Percent Auto 0.3 % (0.0-1.0); Eosinophils Absolute Auto 0.03 K/mm3 (0.02-0.50); Eosinophils Percent Auto 0.3 % (1.0-6.0); Hematocrit 40.8 % (37.0-46.0); Hemoglobin 13.9 g/dL (12.4-15.3); Immature Granulocyte Absolute 0.05 K/mm3 (0.00-0.00); Immature Granulocyte Percent A 0.5 % (0.0-0.0); Lymphocytes Absolute Auto 0.73 K/mm3 (1.10-4.50); Lymphocytes Percent Auto 7.1 % (18.0-42.0); Mean Corpuscular HGB Conc 34.1 g/dL (32.0-36.0); Mean Corpuscular Hemoglobin 31.2 pg (27.0-31.0); Mean Corpuscular Volume 91.7 fL (78.0-102.0); Mean Platelet Volume 9.6 fl (8.7-11.0); Monocytes Absolute Auto 0.79 K/mm3 (0.10-0.90); Monocytes Percent Auto 7.7 % (2.0-11.0); Neutrophils Absolute Auto 8.6 K/mm3 (1.7-7.2); Neutrophils Percent Auto 84.1 % (50.0-70.0); Platelet Count Result 87 K/mm3 (150-420); Red Blood Count 4.45 M/mm3 (4.70-6.10); Red Cell Distribution Width 13.1 % (11.6-14.4); White Blood Count 10.2 K/mm3 (4.8-10.8)
--- NOTE | 2023-09-19 10:22 | PC.NURSE ---
Patient was able to get a hold of family/friend and they will be able to drive him home upon discharge. Patient going to CT at this time. Will administer pain medication upon return to ED.
[2023-09-19 10:24] LABS: INR 2.5; Prothrombin Time 26.1 Seconds (9.50-12.10)
[2023-09-19 10:30] VITALS: BP 127/58; PULSE 75; RESP 17; O2SAT 98
[2023-09-19 10:30] LABS: Alanine Aminotransferase 29 U/L (16-63); Albumin Level 3.3 g/dL (3.4-5.0); Alkaline Phosphatase 93 U/L (46-116); Anion Gap 11 mmol/L (8-16); Aspartate Amino Transferase 21 U/L (15-37); Bilirubin,Total 0.5 mg/dL (0.00-1.00); Blood Urea Nitrogen 25 mg/dL (7-18); Calcium 8.2 mg/dL (8.5-10.1); Carbon Dioxide 26 mmol/L (21-32); Chloride 103 mmol/L (98-108); Estimated Glomerular Filt Rate 58; Glucose 170 mg/dL (70-99); Osmolality Calculated 298 mOsm/kg (285-295); Potassium 4.5 mmol/L (3.5-5.1); Sodium 140 mmol/L (136-145); Total Protein 6.6 g/dL (6.4-8.2)
[2023-09-19 10:32] LABS: CRP < 0.5 mg/dL (0.0-0.9)
--- NOTE | 2023-09-19 10:40 | PC.NURSE ---
Patient back in room from Ct. Patient put back on monitor, will medicate for pain at this time.
[2023-09-19] MEDS: HYDROmorphone HCL INJ (*CRX) 2 MG/ML VIAL 0.5 MG IM (10:41)
[2023-09-19 11:00] VITALS: BP 125/85; PULSE 74; RESP 17; O2SAT 99
--- NOTE | 2023-09-19 11:09 | PC.NURSE ---
On 09/19/23, the student, Jolynn Leyva, provided care and completed [facility] documentation on this patient. I have reviewed the student's documentation and agree with the findings.
[2023-09-19 11:13] VITALS: BP 115/62; PULSE 62; RESP 17; TEMP 36.8; O2SAT 97
[2023-09-19 11:13] LABS: Erythrocyte Sedimentation Rate 16 mm/hr (0-20)
== END 2023-09-19 11:13 | disposition home or self-care (01) ==
PROVIDERS: Emergency Provider Internal Medicine Critical Care Medicine; PCP Internal Medicine
DX: R51.9 Headache, unspecified (principal); E78.5 Hyperlipidemia, unspecified; Z86.73 Personal history of transient ischemic attack (TIA), and cerebral infarction without residual deficits; Z79.01 Long term (current) use of anticoagulants; Z79.899 Other long term (current) drug therapy; Z87.891 Personal history of nicotine dependence
CPT/HCPCS: 36415; 70450; 80053; 84484; 85025; 85055; 85610; 85652; 86140; 93005; 96372; 99284; A9270; J1170

== ENCOUNTER 2023-09-25 13:27 | Outpatient (CLI) | payer MEDICARE, SELFPAY ==
--- NOTE | ~2023-09-25 | CT_ITS ---
EXAMINATION: CT sinus wo con DATE: 09/25/2023 13:48 INDICATION: Frontal headache, blurred vision. Dizziness. Chronic sinusitis. TECHNIQUE: Computed tomography (CT) of the paranasal sinuses was performed without contrast. Iterativ e reconstruction technique was employed. Exam dose: 216.25 mGy-cm total exam DLP. COMPARISON: None FINDINGS: There is leftward bowing of the nasal septum. Moderately prominent soft tissue swelling of the nasal turbinates. Intralamellar cell of both middle nasal turbinates. The ostiomeatal units are patent bilaterally. There are a few areas of focal slight mucoperiosteal thickening of the left maxillary ostium and righ t sphenoid sinus. The paranasal sinuses otherwise are normally developed and aerated. The left mastoid air cells are well-developed and aerated. Status post right partial mastoidectomy. Complete opacification of the left sphenoid sinus with thinning of the posterior sphenoid sinus wall. IMPRESSION: Leftward bowing of nasal septum Intralamellar cell of both middle nasal turbinates Complete opacification of left sphenoid sinus with thinning of the posterior wall Status post right partial mastoidectomy Reviewed, dictated and finalized at Location A. Reviewed, dictated and finalized at location A. ET COATER IMPRESSION: Leftward bowing of nasal septum Intralamellar cell of both middle nasal turbinates Complete opacification of left sphenoid sinus with thinning of the posterior wa ll Status post right partial mastoidectomy
== END 2023-09-25 13:28 | disposition home or self-care (01) ==
LOC: CHSIMG 13:27
PROVIDERS: PCP Internal Medicine; Visit Provider Internal Medicine
DX: J32.9 Chronic sinusitis, unspecified (principal); R51.9 Headache, unspecified; J34.2 Deviated nasal septum; J34.3 Hypertrophy of nasal turbinates; Z98.890 Other specified postprocedural states
CPT/HCPCS: 70486

== ENCOUNTER 2023-09-29 07:04 | Outpatient (CLI) | payer MEDICARE, SELFPAY ==
[2023-09-29 07:18] LABS: Appearance Urine Clear (Clear); Bilirubin Urine Negative (Negative); Blood Urine Negative (Negative); Color Urine Light Yellow (Yellow); Glucose Urine UA Negative (Negative); Hematocrit 40.4 % (37.0-46.0); Hemoglobin 13.3 g/dL (12.4-15.3); Ketones Urine Negative (Negative); Leukocyte Esterase Ur Negative LEU/UL (Negative); Mean Corpuscular HGB Conc 32.9 g/dL (32.0-36.0); Mean Corpuscular Hemoglobin 30.7 pg (27.0-31.0); Mean Corpuscular Volume 93.3 fL (78.0-102.0); Mean Platelet Volume 8.7 fl (8.7-11.0); Nitrate Urine Negative (Negative); Platelet Count Result 182 K/mm3 (150-420); Protein Urine Negative (Negative); Red Blood Count 4.33 M/mm3 (4.70-6.10); Red Cell Distribution Width 13.3 % (11.6-14.4); Specific Grav Ur 1.015 (1.010-1.020); Urobilinogen Urine 0.2 mg/dL (0.2-1.0); White Blood Count 9.6 K/mm3 (4.8-10.8)
[2023-09-29 07:20] LABS: Add Urine Microscopic? NO
[2023-09-29 07:27] LABS: Hemoglobin A1C 5.8 % (<5.7)
[2023-09-29 07:31] LABS: INR 3.9; Prothrombin Time 38.9 Seconds (9.50-12.10)
[2023-09-29 07:35] LABS: Band Neutrophils Percent 0 % (0-6); Basophils Percent Manual 0 % (0-1); Eosinophils Absolute Manual 0.19 K/mm3 (0.02-0.5); Eosinophils Percent Manual 2 % (1-6); Lymphocytes Absolute Manual 1.92 K/mm3 (1.1-4.5); Lymphocytes Percent Manual 20 % (18-44); Monocytes Absolute Manual 0.67 K/mm3 (0.1-0.90); Monocytes Percent Manual 7 % (3-9); Neutrophils Absolute Manual 6.81 K/mm3 (1.3-6.7); Neutrophils Percent Manual 71 % (46-73); Platelet Estimate Adequate (Adequate); Total Cells Counted 100
[2023-09-29 08:03] LABS: Alanine Aminotransferase 112 U/L (16-63); Albumin Level 3.1 g/dL (3.4-5.0); Alkaline Phosphatase 99 U/L (46-116); Anion Gap 9 mmol/L (8-16); Aspartate Amino Transferase 56 U/L (15-37); Bilirubin,Total 0.3 mg/dL (0.00-1.00); Blood Urea Nitrogen 23 mg/dL (7-18); Calcium 8.1 mg/dL (8.5-10.1); Carbon Dioxide 28 mmol/L (21-32); Chloride 102 mmol/L (98-108); Cholesterol 177 mg/dL (0-200); Creatine Kinase 50 U/L (39-308); Estimated Glomerular Filt Rate 55; Glucose 114 mg/dL (70-99); HDL Direct 36 mg/dL (40-60); LDL Cholesterol Calculated 117 mg/dL (<130); Osmolality Calculated 292 mOsm/kg (285-295); Potassium 4.8 mmol/L (3.5-5.1); Prostate Specific Antigen 0.6 ng/mL (< OR = 4.0); Sodium 139 mmol/L (136-145); Total Protein 6.5 g/dL (6.4-8.2); Triglycerides 121 mg/dL (0-150)
== END 2023-09-29 07:05 | disposition home or self-care (01) ==
LOC: CHSLAB 07:06
PROVIDERS: PCP Internal Medicine; Visit Provider Internal Medicine
DX: E78.2 Mixed hyperlipidemia (principal); R73.01 Impaired fasting glucose; D69.6 Thrombocytopenia, unspecified; N39.0 Urinary tract infection, site not specified; Z79.01 Long term (current) use of anticoagulants; Z12.5 Encounter for screening for malignant neoplasm of prostate
CPT/HCPCS: 36415; 80053; 80061; 81003; 82550; 83036; 84153; 85025; 85610; G0103

== ENCOUNTER 2023-10-06 05:34 | Emergency (ER) | payer MEDICARE, SELFPAY ==
[2023-10-06] VITALS (26 sets, daily range): BP systolic 84–146; BP diastolic 65–98; PULSE 80–100; RESP 11–28; TEMP 36.9–38.2; O2SAT 93–100
--- NOTE | ~2023-10-06 | CT_ITS ---
Noncontrast CT scan of the cervical spine Technique: Multiple contiguous axial [address] images of the cervical spine were obtained and rec onstructed in 2D sagittal and coronal planes on the acquisition scanner. Dose reduction technique was used on this scan by utilizing automated exposure control, adjustment of the mA and/or kV according to patient size. The dose-length product (DLP) was 458.62 mGy-cm. Clinical History: Pain Findings: No fractures or dislocations. There is moderate degenerative disc narrowing at C5-C6. Ther e is mild degenerative disc narrowing at C3-C4. There is bilateral neural foraminal narrowing at C5-C 6. No prevertebral soft tissue swelling. Impression: No fracture or subluxation of the cervical spine. Reviewed, dictated and finalized at [facility]. . OPERATIONS MANAGER Impression: No fracture or subluxation of the cervical spine.
--- NOTE | ~2023-10-06 | CT_ITS ---
Non-contrast Head CT History: Multiple falls, weakness Technique: Axial non-contrast imaging of the brain was performed. Dose reduction technique was used on this scan by utilizing automated exposure control and iterative reconstruction technique. The dose -length product (DLP) was 681.00 mGy-cm. Findings: There is a small, focal acute subdural hematoma along the right falx tentorium (axial imag e 22, coronal image 63). This measures approximately 1.7 cm in length, and 7 mm in thickness.. Probab le focal chronic area of infarct in the left periventricular white matter. Additional chronic infarct s noted in the posterior right temporal lobe and left occipital lobe.. The ventricles and subarachno id spaces are mildly dilated. The calvarium appears normal. The visualized paranasal sinuses and ma stoid air cells are clear. Impression: Small focal acute subdural hematoma along the right falx tentorium, as detailed above. Chronic infarcts, as detailed above. Case discussed with Dr. Tesfaye at the time of this reading. Reviewed, dictated and finalized at location M. E VARIATION EQUIPMENT TENDER Impression: Small focal acute subdural hematoma along the right falx tentorium, as detailed above. Chronic infarcts, as detailed above. Case discussed with Dr. Tesfaye at the time of this reading.
--- NOTE | ~2023-10-06 | XR_ITS ---
Portable chest x-ray Comparison: 07/30/2018 Clinical History: Tachypnea Findings: Lungs are clear, without focal consolidation or pleural effusion. Cardiomediastinal silho uette is stable, with pacemaker device. Bones and soft tissues are unremarkable. Impression: Clear lungs. Reviewed, dictated and finalized at [facility]. S PERSON Impression: Clear lungs.
--- NOTE | 2023-10-06 05:53 | PC.NURSE ---
PATIENT PLACED ON BEDPAN HIS BROTHER UP TO NURSES STATION STATING MY BROTHER HAS TO SHIT .
--- NOTE | 2023-10-06 05:57 | PC.NURSE ---
RN CALLED TO BEDSIDE BY PATIENT BROTHER WHO IS REQUESTING URINAL FOR PATIENT. RN HOLDING URINAL AT BEDSIDE FOR >5 MINUTES WITHOUT USING. PATIENT HAD SMALL URINE OUTPUT INTO BEDPAN WITHOUT OBVIOUS STOOL. PATIENT TELLS RN HE USUALLY HAS A BM EVERY THIRD MORNING. PATIENT PASSING GAS, REMOVED FROM URINAL AND BEDPAN PATIENT STATES HE THINKS HE IS FINISHED. CALL LIGHT WITHIN REACH, ERP ASSESSMENT COMPLETED.
--- NOTE | 2023-10-06 06:18 | ECG_ITS ---
Measurements Intervals [place] Rate: 87 P: 52 OK: 184 QRS: -72 QRSD: 158 T: 81 QT: 395 QTc: 476 Interpretive Statements ELECTRONIC VENTRICULAR PACEMAKER ABNORMAL RHYTHM ECG COMPARED TO ECG 09/19/2023 10:14:10 NO SIGNIFICANT CHANGES Electronically Signed On 10-06-2023 15:16:20 HAND GRINDER by Jenna Rivas M.D.
--- NOTE | 2023-10-06 06:20 | ED.GENADULT ---
HPI - General Adult General Chief complaint: Weakness <Doug Tesfaye MD - Last Filed: 11/07/23 18:46> Stated complaint: weakness <Doug Tesfaye MD - Last Filed: 11/07/23 18:46> Time Seen by Provider: 10/06/23 07:06 <Doug Tesfaye MD - Last Filed: 11/07/23 18:46> History of Present Illness HPI narrative: 83yo man brought by EMS after falling at home and unable to get up. Two falls in the past two days. Fever and generalized weakness. No focal weakness or numbness. Denies any pain from the fall. Loss of appetite and decreased urination. <Doug Tesfaye MD - Last Filed: 11/07/23 18:46> 83yo man brought by EMS after falling at home and unable to get up. Two falls in the past two days. He hit his head on a fall this morning. Fever and generalized weakness for 2-3 days. No focal weakness or numbness. Denies any pain from the fall. Loss of appetite and decreased urination. <Main Jerez DO - Last Filed: 10/06/23 08:47> Related Data Home medications: Home Medications Medication Instructions Recorded Confirmed brimonidine 0.2 % eye drops 1 drp ophthalmic (eye) BID 02/29/20 10/29/23 latanoprost 0.005 % eye drops 1 drp ophthalmic (eye) HS 02/29/20 10/29/23 (Xalatan) simvastatin 20 mg tablet (Zocor) 20 mg PO HS 02/29/20 10/29/23 timolol 0.5 % eye drops (Betimol) 1 drp ophthalmic (eye) DAILY 02/29/20 10/29/23 losartan 25 mg tablet (Cozaar) 75 mg PO DAILY 03/01/20 10/29/23 lamotrigine 150 mg tablet 150 mg PO BID 01/15/21 10/29/23 (Lamictal) tamsulosin 0.4 mg capsule (Flomax) 0.4 mg PO DAILY 01/15/21 10/29/23 amlodipine 10 mg tablet (Norvasc) 10 mg PO DAILY 09/19/23 10/30/23 dutasteride 0.5 mg capsule 0.5 mg PO DAILY 10/20/23 10/29/23 vitamin B complex-vit B12 500 mcg PO DAILY 10/20/23 10/29/23 acetaminophen 325 mg tablet 650 mg PO Q4H PRN Pain 10/29/23 10/29/23 aluminum-mag hydroxide-simethicone 20 ml PO QID PRN Indigestion 10/29/23 10/29/23 200 mg-200 mg-20 mg/5 mL oral susp fluticasone propionate 50 1 spray intranasal DAILY 10/29/23 10/29/23 mcg/actuation nasal spray,suspension potassium chloride 20 mEq 20 meq PO DAILY 10/29/23 10/29/23 tablet,extended release <Doug Tesfaye MD - Last Filed: 11/07/23 18:46> Allergies/adverse reactions: Allergies Allergy/AdvReac Type Severity Reaction Status Date / Time No Known Allergies Allergy Verified 10/20/23 17:49 <Doug Tesfaye MD - Last Filed: 11/07/23 18:46> Review of Systems Review of Systems: All systems reviewed & are unremarkable except as noted in HPI and below <Doug Tesfaye MD - Last Filed: 11/07/23 18:46> Constitutional: Constitutional: Reports chills, Reports fatigue, Reports fever(s) and Reports weakness <Doug Tesfaye MD - Last Filed: 11/07/23 18:46> Eyes: Eyes: Denies change in vision <Doug Tesfaye MD - Last Filed: 11/07/23 18:46> ENT: Denies dysphagia and Denies vertigo <Doug Tesfaye MD - Last Filed: 11/07/23 18:46> Cardiovascular: Cardiovascular: Denies chest pain <Doug Tesfaye MD - Last Filed: 11/07/23 18:46> Respiratory: Respiratory: Denies chest congestion, Denies cough, Denies dyspnea and Denies wheezing <Doug Tesfaye MD - Last Filed: 11/07/23 18:46> Gastrointestinal: Gastrointestinal: Denies abdominal pain, Denies constipation and Denies diarrhea <Doug Tesfaye MD - Last Filed: 11/07/23 18:46> Genitourinary: Genitourinary: Denies hematuria and Reports oliguria <Doug Tesfaye MD - Last Filed: 11/07/23 18:46> [facility] Past Medical History Medical History: Medical History (Updated 11/01/23 @ 12:50 by Benjamin Barbosa, JOVANI) Cardiomyopathy 03/2019 EF 40% by echo Complete heart block [employer] pacemaker 2009 CVA (cerebral vascular accident) History of TIA, then CVA 07/2018, treated with warfarin History of CVA (cerebrovascular accident) Hyperlipidemia halfway current use of anticoagulant Pacemaker
--- NOTE | 2023-10-06 06:26 | PC.NURSE ---
PHLEBOTOMY AT BEDSIDE FOR LAB DRAW AND RT AT BEDSIDE FOR EKG. PATIENT BROTHER AT BEDSIDE, VSS AND CALL LIGHT WITHIN REACH.
--- NOTE | 2023-10-06 06:39 | PC.NURSE ---
PATIENT TO RADIOLOGY VIA STRETCHER PER MUTTON PUNCHER.
[2023-10-06 06:41] LABS: Basophils Absolute Auto 0.04 K/mm3 (0.00-0.10); Basophils Percent Auto 0.2 % (0.0-1.0); Hematocrit 39.3 % (37.0-46.0); Hemoglobin 13.3 g/dL (12.4-15.3); Immature Granulocyte Absolute 0.12 K/mm3 (0.00-0.00); Immature Granulocyte Percent A 0.7 % (0.0-0.0); Lymphocytes Absolute Auto 2.01 K/mm3 (1.10-4.50); Lymphocytes Percent Auto 12.4 % (18.0-42.0); Mean Corpuscular HGB Conc 33.8 g/dL (32.0-36.0); Mean Corpuscular Hemoglobin 30.2 pg (27.0-31.0); Mean Corpuscular Volume 89.3 fL (78.0-102.0); Mean Platelet Volume 8.8 fl (8.7-11.0); Monocytes Absolute Auto 1.89 K/mm3 (0.10-0.90); Monocytes Percent Auto 11.7 % (2.0-11.0); Neutrophils Absolute Auto 12.1 K/mm3 (1.7-7.2); Platelet Count Result 185 K/mm3 (150-420); White Blood Count 16.2 K/mm3 (4.8-10.8)
[2023-10-06] MEDS: ACETAMINOPHEN 325 MG TABLET 650 MG PO (06:54)
[2023-10-06] MEDS: SODIUM CHLORIDE 0.9% IV 1,000 ML 999 ML IV CONT ×2 (06:56→08:20)
--- NOTE | 2023-10-06 06:56 | PC.NURSE ---
PATIENT RETURNED FROM IMAGING, AWAITING RESULTS. MEDS GIVEN, SEE MAR. PATIENT BROTHER LEAVING AT THIS TIME.
[2023-10-06 07:01] LABS: Alanine Aminotransferase 35 U/L (16-63); Alkaline Phosphatase 64 U/L (46-116); Anion Gap 12 mmol/L (8-16); Aspartate Amino Transferase 44 U/L (15-37); Bilirubin,Total 1.4 mg/dL (0.00-1.00); Blood Urea Nitrogen 30 mg/dL (7-18); Carbon Dioxide 24 mmol/L (21-32); Chloride 99 mmol/L (98-108); Estimated CRCL calculation 39 ml/min; Estimated Glomerular Filt Rate 51; Glucose 109 mg/dL (70-99); Osmolality Calculated 287 mOsm/kg (285-295); Potassium 3.3 mmol/L (3.5-5.1); Sodium 135 mmol/L (136-145)
[2023-10-06 07:14] LABS: INR 1.4; Prothrombin Time 15.3 Seconds (9.50-12.10)
[2023-10-06 07:15] LABS: SARS-CoV-2 RNA PCR Negative (Negative)
[2023-10-06 07:16] LABS: Appearance Urine Clear (Clear); Bilirubin Urine Negative (Negative); Blood Urine 2+ (Negative); Color Urine Yellow (Yellow); Glucose Urine UA Negative (Negative); Ketones Urine 1+ (Negative); Leukocyte Esterase Ur Negative LEU/UL (Negative); Nitrate Urine Negative (Negative); Protein Urine 1+ (Negative); Specific Grav Ur >= 1.030 (1.010-1.020); Urobilinogen Urine 0.2 mg/dL (0.2-1.0); pH Urine 5.5 (5.0-8.0)
[2023-10-06 07:21] LABS: Influenza A QL RT-PCR Negative (Negative); Influenza B QL RT-PCR Negative (Negative)
[2023-10-06] MEDS: PHYTONADIONE ADULT INJ 10 MG in DEXTROSE 5% IN WATER 50 ML 100 MG IVPB (07:21)
--- NOTE | 2023-10-06 07:21 | PC.NURSE ---
DR PERLA AT PATIENT BEDSIDE AT THIS TIME FOR PATIENT UPDATE.
[2023-10-06 07:22] LABS: RSV RNA, RT-PCR Negative (Negative)
[2023-10-06 07:25] LABS: Creatine Kinase 1023 U/L (39-308); Magnesium 1.9 mg/dL (1.8-2.4)
[2023-10-06] MEDS: DEXTROSE 5% 100 ML 200 ML (07:26)
[2023-10-06 07:30] LABS: Add Urine Microscopic? YES; Bacteria Urine Trace /hpf; Mucus Urine Few /lpf; WBC Urine None seen /hpf (0-3)
[2023-10-06] MEDS: PIPERACILLN/TAZ 3.375GM/NS50ML 3.375 GM/50 ML BAG IVPB (07:37)
--- NOTE | 2023-10-06 07:48 | PC.NURSE ---
REPORT TO BEE RODRIGUEZ IN [facility] ER AT 0742. [facility] NOTIFIED FOR TRANSFER AT 0748.
--- NOTE | 2023-10-06 07:51 | PC.NURSE ---
RAD IMAGES PUSHED TO BRYON [facility]IRSTON TO ACCOMPANY PT
[2023-10-06] MEDS: VANCOMYCIN 1,000 MG/NS 250 ML 1,000 MG/250 ML BAG 250 MG IVPB (08:15)
--- NOTE | 2023-10-12 14:47 | PC.NURSE ---
FINAL BLOOD CULTURE REPORT, NO GROWTH AFTER 5 DAYS.
== END 2023-10-06 08:45 | disposition short-term general hospital (02) ==
PROVIDERS: Emergency Medicine; Emergency Provider Family Medicine; PCP Internal Medicine
DX: S06.5XAA Traumatic subdural hemorrhage with loss of consciousness status unknown, initial encounter (principal); E78.5 Hyperlipidemia, unspecified; Z79.899 Other long term (current) drug therapy; Z79.01 Long term (current) use of anticoagulants; Z86.73 Personal history of transient ischemic attack (TIA), and cerebral infarction without residual deficits; Z20.822 Contact with and (suspected) exposure to COVID-19; Z87.891 Personal history of nicotine dependence; W19.XXXA Unspecified fall, initial encounter; Y92.009 Unspecified place in unspecified non-institutional (private) residence as the place of occurrence of the external cause
CPT/HCPCS: 36415; 70450; 71045; 72125; 80053; 81001; 82550; 83605; 83735; 85025; 85610; 87040; 87637; 93005; 96365; 96367; 96368; 99285; A9270; J2543; J3370; J3430; J7030; L0150

== ENCOUNTER 2023-10-20 17:38 | Emergency (ER) | payer MEDICARE, SELFPAY ==
--- NOTE | ~2023-10-20 | CT_ITS ---
EXAMINATION: CT brain wo con DATE: 10/20/2023 18:26 INDICATION: fall . TECHNIQUE: Computed tomography (CT) of the head was performed without intravenous contrast. The mA wa s adjusted according to patient size. Iterative reconstruction technique was employed. The dose-lengt h product was 605.33 mGy-cm. COMPARISON: 10/06/2023. FINDINGS: No acute intracranial hemorrhage or extra-axial fluid collection. No hydrocephalus, mass, or herniation. No acute ischemic infarct. Unremarkable dural venous sinus attenuation. No acute osseous abnormality. Left sphenoid opacification with surrounding sclerosis, right mastoidectomy, the remaining aerated sp aces are clear. Moderate atrophy and chronic white matter change. Atherosclerotic intracranial calcification. Bilater al lens replacements. Focal chronic areas of encephalomalacia in the left periventricular white matte r, posterior right temporal lobe, and left occipital lobe. Interval resolution of the previously desc ribed tentorial hemorrhage. IMPRESSION: No acute intracranial process. Chronic sphenoid sinusitis. Reviewed, dictated and finalized at location K. ITION THERAPIST
--- NOTE | ~2023-10-20 | XR_ITS ---
EXAM: XR elbow RT min 3V DATE: 10/20/2023 18:27 HISTORY: fall . COMPARISON: None available. FINDINGS: Normal mineralization. No fracture or dislocation. No lytic or blastic lesion. Mild degene rative change. No erosion or periosteal change. Soft tissues within normal limits. IMPRESSION: No acute osseous finding in the right elbow. Reviewed, dictated and finalized at location K. GY EFFICIENCY SPECIALIST
--- NOTE | ~2023-10-20 | CT_ITS ---
EXAMINATION: CT cervical spine wo con DATE: 10/20/2023 18:27 INDICATION: fall TECHNIQUE: Computed tomography (CT) of the cervical spine was performed without intravenous contrast. Automated exposure control and iterative reconstruction technique were employed. The dose-length pro duct was 510.90 mGy-cm. COMPARISON: 10/06/2023. FINDINGS: Vertebral Body Alignment: Intact. Minimal, stable multilevel degenerative listheses. Craniocervical and atlantoaxial alignment: Moderate degenerative change. Alignment intact. Osseous structures/fracture: No evidence of a lytic or blastic process in the visualized spine. No e vidence of acute fracture. Cervical soft tissues: The paraspinal soft tissues planes are maintained. Degenerative changes: Degenerative changes, without severe neural foraminal or central canal narrowin g. IMPRESSION: No acute fracture or traumatic malalignment in the cervical spine. Reviewed, dictated and finalized at location K. DENTIAL PROGRAM MANAGER
[2023-10-20 17:38] VITALS: BP 109/71; PULSE 90; RESP 18; TEMP 37.4; O2SAT 98
--- NOTE | 2023-10-20 17:49 | ED.FALL ---
HPI - Fall General Chief Complaint: Fall Stated Complaint: fall Time Seen by Provider: 10/20/23 17:48 Source: patient Mode of arrival: ambulatory Limitations: no limitations History of Present Illness HPI Narrative: Patient is an 83-year-old male with mechanical fall at the group home. He has a chronic Harry. He fell and hurt his right elbow and unclear what other areas he might have hit but likely his head. He has a prior history of a brain bleed. He was supposed to get up only with nursing staff. He decided to get up on his own today and fell. He had no predrome or postdrome symptoms. No loss of consciousness. Nursing staff found him on the floor. He fell twice today. patient is on blood thinners. complaint: fall Onset (ago): day(s) (1) Fall from: standing Fall witnessed: no Place fall occurred: home and group home/SNF Loss of consciousness: none Prolonged down time: no Symptoms prior to fall: none Context: tripped/slipped Location of injury: head and other ( Right elbow) Location of injury - extremities: Right: elbow Severity: mild Severity scale (1-10): 1 Quality: dull Associated symptoms (after fall): denies Related Data Home Medications Medication Instructions Recorded Confirmed brimonidine 0.2 % eye drops 1 drp ophthalmic (eye) Q8H 02/29/20 10/20/23 latanoprost 0.005 % eye drops 1 drp ophthalmic (eye) BID 02/29/20 10/20/23 (Xalatan) simvastatin 20 mg tablet (Zocor) 20 mg PO QPM 02/29/20 10/20/23 timolol 0.5 % eye drops (Betimol) 1 drp ophthalmic (eye) DAILY 02/29/20 10/20/23 losartan 25 mg tablet (Cozaar) 75 mg PO DAILY 03/01/20 10/20/23 lamotrigine 150 mg tablet 150 mg PO BID 01/15/21 10/20/23 (Lamictal) tamsulosin 0.4 mg capsule (Flomax) 0.4 mg PO DAILY 01/15/21 10/20/23 amlodipine 10 mg tablet (Norvasc) 10 mg PO DAILY 09/19/23 10/20/23 dutasteride 0.5 mg capsule 0.5 mg PO DAILY 10/20/23 10/20/23 enoxaparin 30 mg/0.3 mL 30 mg subcut Q12H 10/20/23 10/20/23 subcutaneous syringe (Lovenox) vitamin B complex-vit B12 500 mcg PO DAILY 10/20/23 10/20/23 Allergies Allergy/AdvReac Type Severity Reaction Status Date / Time No Known Allergies Allergy Verified 10/20/23 17:49 Review of Systems Review of Systems: All systems reviewed & are unremarkable except as noted in HPI and below Constitutional: Constitutional: Reports no additional constitutional complaints Eyes: Eyes: Reports no additional eye complaints ENT: Reports system reviewed and no additional complaints, except as documented Cardiovascular: Cardiovascular: Reports no additional cardiovascular complaints Respiratory: Respiratory: Reports no additional respiratory complaints Gastrointestinal: Gastrointestinal: Reports no additional gastrointestinal complaints Genitourinary: Genitourinary: Reports no additional male genitourinary complaints Musculoskeletal: Musculoskeletal: Reports no additional musculoskeletal complaints Integumentary/Breasts: Skin/Breast: Reports system reviewed and no additional complaints, except as docu Neurologic: Reports system reviewed and no additional complaints, except as documented Psychiatric: Psychiatric: Reports no additional psychiatric complaints Endocrine: Endocrine: Reports no additional endocrine complaints Hematologic/Lymphatic: Hematologic/Lymphatic: Reports no additional hematologic/lymphatic complaints Allergic/Immunologic: Allergic/Immunologic: Reports no additional allergic/immunologic complaints PMFSH Past Medical History Medical History Cardiomyopathy 03/2019 EF 40% by echo Complete heart block [employer] pacemaker 2009 CVA (cerebral vascular accident) History of TIA, then CVA 07/2018, treated with warfarin Hyperlipidemia Pacemaker 2009 [employer] pacemaker, 2019 generator change Pre-diabetes Seizure Thrombocytopenia 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
--- NOTE | 2023-10-20 19:18 | PC.NURSE ---
Report called to RN at [facility]. She states that no one is available to pick the patient up and bring him back to the facilioty, so ambulance transfer is the best way to get the patient home.
--- NOTE | 2023-10-20 19:19 | PC.NURSE ---
MARQUISE paged for pt transport back to SNF
[2023-10-20 19:21] VITALS: BP 108/70; PULSE 88; RESP 18; TEMP 36.8; O2SAT 98
[2023-10-20] MEDS: TETANUS,DIPHTHERIA,AC PERTUSSIS ADULT 0.5 ML (ADACEL) IM (20:03)
== END 2023-10-20 20:06 | disposition home or self-care (01) ==
PROVIDERS: Emergency Provider Emergency Medicine; PCP Internal Medicine
DX: S09.90XA Unspecified injury of head, initial encounter (principal); S51.011A Laceration without foreign body of right elbow, initial encounter; E78.5 Hyperlipidemia, unspecified; Z86.73 Personal history of transient ischemic attack (TIA), and cerebral infarction without residual deficits; Z79.899 Other long term (current) drug therapy; Z87.891 Personal history of nicotine dependence; Z23 Encounter for immunization; W01.0XXA Fall on same level from slipping, tripping and stumbling without subsequent striking against object, initial encounter; Y92.129 Unspecified place in nursing home as the place of occurrence of the external cause
CPT/HCPCS: 70450; 72125; 73080; 90471; 90715; 99284

== ENCOUNTER 2023-10-22 07:52 | Outpatient (CLI) | payer MEDICARE, SELFPAY ==
--- NOTE | ~2023-10-22 | CT_ITS ---
EXAMINATION: CT abdomen pelvis w con INDICATION: Diarrhea TECHNIQUE: Computed tomographic images of the abdomen and pelvis were obtained after the administrati on of 100 cc of Omnipaque 350 intravenous contrast. The dose-length product (DLP) was 680.70 mGy-cm. Automated exposure control and iterative reconstruction technique were employed. COMPARISON: 07/07/2019 FINDINGS: Minimal dependent atelectasis is present in the lung bases. The heart size is normal. There is a small sliding hiatal hernia. The liver, spleen, pancreas, gallbladder, and adrenal glands are n ormal. There is a 3 mm nonobstructing stone of the left kidney. Area of scarring is noted anteriorly in the right mid kidney. The bladder is decompressed by Harry catheter. No pathologically enlarged ab dominal or pelvic lymph nodes are identified. No free intraperitoneal gas or evidence of bowel obstru ction. The appendix is normal. There is a chronic L2 burst fracture. IMPRESSION: 1. No CT correlate for the patient's symptoms. 2. Diverticulosis without evidence of diverticulitis. 3. Nonobstructing left nephrolithiasis. Reviewed, dictated and finalized at location L. SOFTWARE
[2023-10-22 08:15] LABS: Estimated Glomerular Filt Rate 59
== END 2023-10-22 07:53 | disposition home or self-care (01) ==
PROVIDERS: PCP Internal Medicine; Visit Provider Internal Medicine
DX: R19.7 Diarrhea, unspecified (principal); D72.829 Elevated white blood cell count, unspecified; K57.90 Diverticulosis of intestine, part unspecified, without perforation or abscess without bleeding; N20.0 Calculus of kidney
CPT/HCPCS: 74177; Q9967

== ENCOUNTER 2023-10-26 17:16 | Outpatient (NON) | payer MEDICARE, SELFPAY ==
[2023-10-26 18:12] LABS: Toxigenic C. Diff NEGATIVE (NEGATIVE)
== END 2023-10-26 17:17 | disposition home or self-care (01) ==
PROVIDERS: PCP Internal Medicine; Visit Provider Internal Medicine
DX: D72.829 Elevated white blood cell count, unspecified (principal); E86.0 Dehydration; R19.7 Diarrhea, unspecified
CPT/HCPCS: 87493

== ENCOUNTER 2023-10-27 07:00 | Outpatient (NON) | payer MEDICARE, SELFPAY ==
[2023-10-27 07:13] LABS: Basophils Absolute Auto 0.04 K/mm3 (0.00-0.10); Basophils Percent Auto 0.3 % (0.0-1.0); Eosinophils Absolute Auto 0.16 K/mm3 (0.02-0.50); Eosinophils Percent Auto 1.2 % (1.0-6.0); Hematocrit 35.2 % (37.0-46.0); Immature Granulocyte Absolute 0.22 K/mm3 (0.00-0.00); Immature Granulocyte Percent A 1.6 % (0.0-0.0); Lymphocytes Absolute Auto 2.03 K/mm3 (1.10-4.50); Mean Corpuscular HGB Conc 34.1 g/dL (32.0-36.0); Mean Corpuscular Hemoglobin 31.1 pg (27.0-31.0); Mean Corpuscular Volume 91.2 fL (78.0-102.0); Mean Platelet Volume 9.3 fl (8.7-11.0); Monocytes Absolute Auto 0.99 K/mm3 (0.10-0.90); Monocytes Percent Auto 7.3 % (2.0-11.0); Neutrophils Absolute Auto 10.1 K/mm3 (1.7-7.2); Neutrophils Percent Auto 74.6 % (50.0-70.0); Platelet Count Result 125 K/mm3 (150-420); Red Blood Count 3.86 M/mm3 (4.70-6.10); Red Cell Distribution Width 13.5 % (11.6-14.4); White Blood Count 13.5 K/mm3 (4.8-10.8)
[2023-10-27 07:28] LABS: Alanine Aminotransferase 79 U/L (16-63); Albumin Level 2.4 g/dL (3.4-5.0); Alkaline Phosphatase 76 U/L (46-116); Anion Gap 5 mmol/L (8-16); Aspartate Amino Transferase 31 U/L (15-37); Bilirubin,Total 0.5 mg/dL (0.00-1.00); Blood Urea Nitrogen 17 mg/dL (7-18); Calcium 7.5 mg/dL (8.5-10.1); Carbon Dioxide 29 mmol/L (21-32); Chloride 95 mmol/L (98-108); Estimated Glomerular Filt Rate > 60; Glucose 105 mg/dL (70-99); Osmolality Calculated 269 mOsm/kg (285-295); Sodium 129 mmol/L (136-145); Total Protein 5.3 g/dL (6.4-8.2)
== END 2023-10-27 07:01 | disposition home or self-care (01) ==
LOC: CHSLAB 07:03
PROVIDERS: Visit Provider Internal Medicine
DX: I48.20 Chronic atrial fibrillation, unspecified (principal); I10 Essential (primary) hypertension
CPT/HCPCS: 36415; 80053; 85025

== ENCOUNTER 2023-10-29 13:18 | Inpatient (IN) | payer MEDICARE, SELFPAY ==
--- NOTE | ~2023-10-29 | CT_ITS ---
EXAMINATION: CT brain wo con DATE: 10/29/2023 15:18 INDICATION: Weakness. TECHNIQUE: Computed tomography (CT) of the head was performed without intravenous contrast. The dose- length product was 908.00 mGy-cm. Automated exposure control and iterative reconstruction technique w ere employed. COMPARISON: CT dated 10/20/2023 and 10/06/2023 FINDINGS: No evidence for residual subdural hemorrhage along the right tentorium. There are chronic b ilateral posterior parietal infarctions. Generalized atrophy. There are scattered moderate periventri cular and subcortical white matter changes, most likely related to small vessel ischemic disease (maite roangiopathy). There is intracranial atherosclerosis. No acute intracranial hemorrhage, infarction, m ass or mass effect. There are changes of right mastoidectomy. Paranasal sinuses and mastoids are pneu matized. No depressed skull fractures. There is chronic left sphenoid sinus disease. IMPRESSION: 1. No acute intracranial abnormality. Reviewed, dictated and finalized at location A.
--- NOTE | ~2023-10-29 | XR_ITS ---
EXAMINATION: XR chest 1V portable DATE: 10/29/2023 15:19 INDICATION: Generalized weakness. TECHNIQUE: A single frontal view of the chest was obtained. COMPARISON: Chest single view 10/06/2023, CT abdomen and pelvis 10/22/2023 FINDINGS: There is no pneumonia, pleural effusion, or pneumothorax. The heart size is normal. There i s a left chest wall pacer with leads in the right atrium and right ventricle. IMPRESSION: 1. No acute cardiopulmonary disease. Reviewed, dictated and finalized at location A.
--- NOTE | ~2023-10-29 | CT_ITS ---
EXAMINATION: CTA chest PE protocol DATE: 10/29/2023 15:46 INDICATION: Confusion. Weakness. Elevated d-dimer. TECHNIQUE: Computed tomography angiography (CTA) of the chest was performed with 100 mL Omnipaque-350 intravenous contrast timed to evaluate the pulmonary arteries. Coronal maximum intensity projection 3D-reconstructions were created by the technologist. Automated exposure control and iterative reconst ruction technique were employed. The dose-length product was 736.91 mGy-cm. COMPARISON: CT abdomen and pelvis 10/22/23 FINDINGS: There is mild dependent atelectasis bilaterally. There is a pneumatocele in right middle lo be. No pleural effusion. The heart size is normal. No pericardial effusion. There is a left chest wal l pacer with leads in the right atrium and right ventricle. There is no pulmonary embolus. There is a small sliding hiatal hernia. There is mild thoracic spondylosis. There are chronic burst fractures o f T5, T6, T7, and T8. There is a burst fracture of T4 with 2/5 loss of height. IMPRESSION: 1. No pulmonary embolus. Sensitivity is mildly decreased by motion artifact. 2. Small sliding hiatal hernia. 3. Age-indeterminate T4 burst fracture, probably acute or subacute. Reviewed, dictated and finalized at location A.
[2023-10-29 13:28] VITALS: BP 109/73; PULSE 97; RESP 20; TEMP 38.3; O2SAT 97
--- NOTE | 2023-10-29 13:58 | ECG_ITS ---
Measurements Intervals [place] Rate: 102 P: 16 ME: 201 QRS: -77 QRSD: 153 T: 98 QT: 383 QTc: 499 Interpretive Statements ATRIAL SENSE- ELECTRONIC VENTRICULAR PACEMAKER UNDERLYING SINUS TACHYCARDIA BASELINE ARTIFACT- I, II, III, AVR, AVL, AVF, V6 NO FURTHER INTERPRETATION IS POSSIBLE BORDERLINE ECG COMPARED TO ECG 10/06/2023 06:31:07 SINUS TACHYCARDIA NOW PRESENT Electronically Signed On 10-29-2023 14:32:06 CDT by Keshav Mead D.O.
[2023-10-29 14:12] LABS: SARS-CoV-2 RNA PCR Negative (Negative)
[2023-10-29 14:13] LABS: Influenza A QL RT-PCR Negative (Negative); Influenza B QL RT-PCR Negative (Negative); RSV RNA, RT-PCR Negative (Negative)
[2023-10-29 14:29] LABS: Basophils Absolute Auto 0.03 K/mm3 (0.00-0.10); Basophils Percent Auto 0.2 % (0.0-1.0); Eosinophils Absolute Auto 0.01 K/mm3 (0.02-0.50); Eosinophils Percent Auto 0.1 % (1.0-6.0); Hematocrit 38.5 % (37.0-46.0); Hemoglobin 13.2 g/dL (12.4-15.3); Immature Granulocyte Absolute 0.19 K/mm3 (0.00-0.00); Immature Granulocyte Percent A 1.2 % (0.0-0.0); Lymphocytes Absolute Auto 2.07 K/mm3 (1.10-4.50); Lymphocytes Percent Auto 13.4 % (18.0-42.0); Mean Corpuscular HGB Conc 34.3 g/dL (32-36); Mean Corpuscular Hemoglobin 30.5 pg (27.0-31.0); Mean Corpuscular Volume 88.9 fL (78.0-102.0); Mean Platelet Volume 8.7 fl (8.7-11.0); Monocytes Absolute Auto 1.16 K/mm3 (0.10-0.90); Monocytes Percent Auto 7.5 % (2.0-11.0); Neutrophils Absolute Auto 11.97 K/mm3 (1.70-7.20); Neutrophils Percent Auto 77.6 % (50.0-70.0); Platelet Count Result 152 K/mm3 (150-420); Red Blood Count 4.33 M/mm3 (4.70-6.10); Red Cell Distribution Width 13.8 % (11.6-14.4); White Blood Count 15.4 K/mm3 (4.8-10.8)
[2023-10-29 14:43] LABS: Appearance Urine Cloudy (Clear); Bilirubin Urine 1+ (Negative); Blood Urine 3+ (Negative); Color Urine Yellow (Yellow); Glucose Urine UA Negative (Negative); Ketones Urine Trace (Negative); Leukocyte Esterase Ur 3+ LEU/UL (Negative); Nitrate Urine Negative (Negative); Protein Urine 2+ (Negative); Specific Grav Ur 1.025 (1.010-1.020)
[2023-10-29 14:53] LABS: Lactic Acid Reflex 2.1 mmol/L (0.4-2.0)
[2023-10-29 14:54] LABS: Add Urine Microscopic? YES; Bacteria Urine 2+ /hpf; WBC Urine 51-75 /hpf (0-3)
[2023-10-29 15:00] LABS: Alanine Aminotransferase 79 U/L (16-63); Albumin Level 2.7 g/dL (3.4-5.0); Alkaline Phosphatase 86 U/L (46-116); Anion Gap 15 mmol/L (8-16); Aspartate Amino Transferase 37 U/L (15-37); Bilirubin,Total 0.9 mg/dL (0.00-1.00); Blood Urea Nitrogen 18 mg/dL (7-18); Calcium 7.9 mg/dL (8.5-10.1); Carbon Dioxide 22 mmol/L (21-32); Chloride 94 mmol/L (98-108); Estimated CRCL calculation 49 ml/min; Estimated Glomerular Filt Rate 59; Glucose 132 mg/dL (70-99); Osmolality Calculated 275 mOsm/kg (285-295); Potassium 3.5 mmol/L (3.5-5.1); Sodium 131 mmol/L (136-145); Total Protein 6.5 g/dL (6.4-8.2)
[2023-10-29 15:05] LABS: NT Pro B Type Natriuretic Pept 1515 pg/mL (0-450); Troponin I 49.3 ng/L (0.00-60.4)
[2023-10-29 15:06] VITALS: BP 123/97; RESP 20; O2SAT 95
[2023-10-29 15:13] LABS: D Dimer 4.82 mg/L (0.19-0.50)
--- NOTE | 2023-10-29 15:33 | PC.NURSE ---
1350 pt poor historian, hx of tia/cva ,cognitive impairment
--- NOTE | 2023-10-29 16:01 | ED.FEVER ---
HPI - Fever General Chief Complaint: Fever Stated Complaint: confusion Source: patient Mode of arrival: ambulatory Limitations: no limitations History of Present Illness HPI Narrative: this is a an 83-year-old gentleman that presents with some generalized weakness and fever up to 101 denies any shortness of breath no abdominal pain no back pain no flank pain no shortness of breath no nausea vomiting no diarrhea constipation. Patient has a history of CVA diagnosed back in 2018 and complete heart block with a paced rhythm, with hyperlipidemia and history of hypertension and BPH. MD elicited complaint: fever and weakness Onset (ago): day(s) Related Data Home Medications Medication Instructions Recorded Confirmed brimonidine 0.2 % eye drops 1 drp ophthalmic (eye) Q8H 02/29/20 10/20/23 latanoprost 0.005 % eye drops 1 drp ophthalmic (eye) BID 02/29/20 10/20/23 (Xalatan) simvastatin 20 mg tablet (Zocor) 20 mg PO QPM 02/29/20 10/20/23 timolol 0.5 % eye drops (Betimol) 1 drp ophthalmic (eye) DAILY 02/29/20 10/20/23 losartan 25 mg tablet (Cozaar) 75 mg PO DAILY 03/01/20 10/20/23 lamotrigine 150 mg tablet 150 mg PO BID 01/15/21 10/20/23 (Lamictal) tamsulosin 0.4 mg capsule (Flomax) 0.4 mg PO DAILY 01/15/21 10/20/23 amlodipine 10 mg tablet (Norvasc) 10 mg PO DAILY 09/19/23 10/20/23 dutasteride 0.5 mg capsule 0.5 mg PO DAILY 10/20/23 10/20/23 enoxaparin 30 mg/0.3 mL 30 mg subcut Q12H 10/20/23 10/20/23 subcutaneous syringe (Lovenox) vitamin B complex-vit B12 500 mcg PO DAILY 10/20/23 10/20/23 Allergies Allergy/AdvReac Type Severity Reaction Status Date / Time No Known Allergies Allergy Verified 10/20/23 17:49 Review of Systems Review of Systems: All systems reviewed & are unremarkable except as noted in HPI and below PMFSH Past Medical History Medical History Cardiomyopathy 03/2019 EF 40% by echo Complete heart block [employer] pacemaker 2009 CVA (cerebral vascular accident) History of TIA, then CVA 07/2018, treated with warfarin Hyperlipidemia Pacemaker 2009 [employer] pacemaker, 2019 generator change Pre-diabetes Seizure Thrombocytopenia 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 No alcohol or tobacco use for a couple of decades. Has a brother to me is close named Vinh. Years smoked: 16 Smoking status: Former smoker Tobacco type: cigarettes Second hand tobacco smoke exposure: Yes Alcohol intake: former Substance use: never Last use: 1975 Living arrangements: alone Occupation/Education: retired Gender identity (if verbalized by the patient): Male Spiritual care concerns: No Exam Const: General: ill appearing Nutritional Appearance: well nourished Orientation/consciousness: confusion Limitations: physical limitations HENMT: Head: normal to inspection Eyes: Conjunctivae: conjunctivae normal Pupils: Equal, round and reactive pupils present Neck: Neck: normal visual inspection Chest: Chest palpation & inspection: normal inspection of the chest Resp: Effort & Inspection: normal respiratory effort Auscultation: clear to auscultation bilaterally Cardio: Rate: regular rate Rhythm: abnormal rhythm GI: GI Palp: Yes Soft to palpation Auscultation: normal bowel sounds : General: Yes bladder normal to palpation Urinary Catheter: Urinary Catheter: patent and draining Back/Spine/Pelvis: Back: no CVA tenderness Skin: General skin exam: normal color Rashes: no rashes Neuro:
[2023-10-29 16:05] VITALS: BP 119/107; PULSE 96; RESP 20; TEMP 36.8; O2SAT 98
[2023-10-29 16:32] VITALS: BP 115/69; PULSE 104; RESP 20; O2SAT 97
[2023-10-29 17:20] VITALS: BP 120/73; PULSE 97; RESP 16; TEMP 36.6; O2SAT 97; BMI 22.9
--- NOTE | 2023-10-29 17:20 | ADMGEN ---
This patient, Jamari Andersen, was admitted to 2nd Floor Room 206-1. Patient/family oriented to hospital policies and general routines including ID bracelet, bed and alarms, visiting hours, pain management, procedures, bathroom and other care routines, personal items, smoking policy, room service/diet, and visiting hours. Patient alert to self only, trouble retaining information. Bed alarm activated. Information on how to activate the Rapid Response Team has been discussed. Patient/Family are encouraged to report perceived risks to care and to ask questions if they do not understand what they are told or what they should do.
[2023-10-29 17:27] LABS: Reflex Lactic Acid Yes or No Add Lactic
[2023-10-29 17:30] VITALS: BP 155/78; PULSE 74; RESP 20; TEMP 37.6; O2SAT 94
[2023-10-29 17:33] LABS: Magnesium 1.9 mg/dL (1.8-2.4)
--- NOTE | 2023-10-29 17:37 | PC.NURSE ---
pt admitted to room 206, to floor via wheelchair with sivakumar Alanis. [id number] [facility] to update on admission, no answer.
[2023-10-29 18:12] LABS: Lactic Acid 2.1 mmol/L (0.4-2.0)
[2023-10-29] MEDS: CALCIUM CITRATE 200 MG TABLET 400 MG PO (18:16)
[2023-10-29] MEDS: LACTATED RINGERS 500 ML 75 ML IV CONT (18:18)
[2023-10-29 20:28] VITALS: BMI 22.9
[2023-10-29] MEDS: ENOXAPARIN 30 MG/0.3 ML SYRINGE SUB-Q (21:59)
[2023-10-29] MEDS: lamoTRIgine 100 MG, lamoTRIgine 50 MG 150 MG PO (21:59)
[2023-10-30] VITALS: BP 128/65; PULSE 101; RESP 18; TEMP 36.6; O2SAT 95
[2023-10-30] MEDS: SIMVASTATIN 10 MG TABLET 20 MG PO ×2 (01:17→21:38)
[2023-10-30] MEDS: LACTATED RINGERS 500 ML 75 ML IV CONT (04:22)
[2023-10-30 05:31] LABS: Basophils Absolute Auto 0.03 K/mm3 (0.00-0.10); Basophils Percent Auto 0.2 % (0.0-1.0); Eosinophils Absolute Auto 0.02 K/mm3 (0.02-0.50); Eosinophils Percent Auto 0.2 % (1.0-6.0); Hematocrit 35.7 % (37.0-46.0); Hemoglobin 11.8 g/dL (12.4-15.3); Immature Granulocyte Absolute 0.16 K/mm3 (0.00-0.00); Immature Granulocyte Percent A 1.3 % (0.0-0.0); Lymphocytes Absolute Auto 1.91 K/mm3 (1.10-4.50); Lymphocytes Percent Auto 15.1 % (18.0-42.0); Mean Corpuscular HGB Conc 33.1 g/dL (32-36); Mean Corpuscular Hemoglobin 29.9 pg (27.0-31.0); Mean Corpuscular Volume 90.6 fL (78.0-102.0); Mean Platelet Volume 8.6 fl (8.7-11.0); Monocytes Absolute Auto 1.06 K/mm3 (0.10-0.90); Monocytes Percent Auto 8.4 % (2.0-11.0); Neutrophils Percent Auto 74.8 % (50.0-70.0); Platelet Count Result 129 K/mm3 (150-420); Red Blood Count 3.94 M/mm3 (4.70-6.10); Red Cell Distribution Width 13.9 % (11.6-14.4); White Blood Count 12.7 K/mm3 (4.8-10.8)
[2023-10-30 05:56] LABS: Alanine Aminotransferase 57 U/L (16-63); Albumin Level 2.3 g/dL (3.4-5.0); Alkaline Phosphatase 69 U/L (46-116); Anion Gap 11 mmol/L (8-16); Aspartate Amino Transferase 23 U/L (15-37); Bilirubin,Total 0.7 mg/dL (0.00-1.00); Blood Urea Nitrogen 15 mg/dL (7-18); Calcium 7.6 mg/dL (8.5-10.1); Carbon Dioxide 24 mmol/L (21-32); Chloride 97 mmol/L (98-108); Estimated CRCL calculation 57 ml/min; Estimated Glomerular Filt Rate > 60; Glucose 112 mg/dL (70-99); Magnesium 1.9 mg/dL (1.8-2.4); Osmolality Calculated 275 mOsm/kg (285-295); Potassium 3.2 mmol/L (3.5-5.1); Sodium 132 mmol/L (136-145); Total Protein 5.6 g/dL (6.4-8.2)
[2023-10-30 07:50] VITALS: BP 136/71; PULSE 90; RESP 16; TEMP 36.7; O2SAT 98
[2023-10-30 08:00] VITALS: O2SAT 98
--- NOTE | 2023-10-30 08:51 | PM.IMHP ---
H&P: HPI History of Present Illness Date/Time: 10/30/23 08:51 Chief Complaint: Fever Narrative: This is an 83-year-old male patient with a past history CVA, cardiomyopathy, complete heart block status post pacemaker, ITP, seizures and hyperlipidemia currently residing at [facility] re[facility] SN[facility] after a fall at home the end of September resulting in a small subdural hemorrhage. Patient was treated at [facility] for head bleed with resolution without intervention. Patient was discharged to SNF on Lovenox with a plan for primary care to bridge to warfarin. The discharge dose of Lovenox was not appropriate weight based dosing. Review of prior paperwork obtained through primary care office shows a conflicting dose on the computer records in that there is a comment for 100 mg twice a day but the product ordered was 30 mg twice a day. Patient was sent to our emergency department yesterday for fever and overall just not feeling well and not acting right. He has a an indwelling Harry catheter that was placed at [facility] for urinary retention. Today catheter was replaced. it is unclear if patient was supposed undergo a voiding trial. Today patient states that he is feeling better. Initial white blood cell count was over 15,000 slight decrease to 12 after initiation of IV Rocephin. Cultures are in progress and no prior positive cultures to refer to as far as targeting a likely offending agent. Patient denies any chest pain difficulty breathing nausea vomiting abdominal pain fever or chills at this time. He did not realize he had a fever yesterday only that he did not feel well. Patient is not a great historian and appeared to be confused about what led him to being admitted at the detention and why he was on warfarin in the past. Review of Systems Review of Systems: All systems reviewed & are unremarkable except as noted in HPI and below PMFSH Past Medical History Medical History (Updated 10/30/23 @ 14:29 by Benjamin Barbosa APRN) Cardiomyopathy 03/2019 EF 40% by echo Complete heart block [employer] pacemaker 2009 CVA (cerebral vascular accident) History of TIA, then CVA 07/2018, treated with warfarin History of CVA (cerebrovascular accident) Hyperlipidemia Pacemaker 2009 [employer] pacemaker, 2019 generator change Pre-diabetes Seizure Thrombocytopenia Has ITP treated by MAVERICK Santos in [facility], previously on Retuxin Surgical History Surgical History History of pacemaker Family History Family History Mother Heart disease Father Cancer Social History Social History Social History: 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 No alcohol or tobacco use for a couple of decades. Has a brother to me is close named Vinh. Years smoked: 16 Smoking status: Never smoker Tobacco type: cigarettes Second hand tobacco smoke exposure: Yes Alcohol intake: never Substance use: never Substance use type: does not use Last use: 1976 Do You Feel Safe in your Home?: Yes Lack of Transportation: No Lack of Food: Never True Current Housing: I Have Housing Concerned About Future Housing: No Difficulty Paying Gas/Electric Bills: No Difficulty Paying for Meds: No Currently Unemployed: No Education: High School Diploma/GED Difficulty w/ Childcare or Family Care: No Living arrangements: alone Occupation/Education: retired Gender identity (if verbalized by the patient): Male Spiritual care concerns: No Meds Home Medications and Allergies Home Medications Medication Instructions Recorded Confirmed Type brimonidine 0.2 % eye drops 1 drp ophthalmic (eye) BID 02/29/20 10/29/23 History latanoprost 0.005 % eye drops 1 drp ophthalmic (eye) HS 02/29/20 10/29/23 Hist
--- NOTE | 2023-10-30 10:02 | PC.NURSE ---
Patient getting up to commode, back of commode chair caused abrasion to back, while sitting was too close, Ezequiel Barbosa notified of injury, area cleansed,
[2023-10-30 10:52] LABS: INR 1.1; Prothrombin Time 12.3 Seconds (9.50-12.1)
[2023-10-30] MEDS: TIMOLOL MALEATE 0.5% OP SOLN 5 ML BOTTLE 1 DROP RIGHT EYE (11:09)
[2023-10-30] MEDS: FLUTICASONE PROPIONATE 0.05% NA SPR 16 GM BTL (*BKC) 1 SPRAY NASAL (11:09)
[2023-10-30] MEDS: POTASSIUM CHLORIDE 20 MEQ ER TABLET PO (11:10)
[2023-10-30] MEDS: LOSARTAN POTASSIUM 25 MG TABLET 75 MG PO (11:10)
[2023-10-30] MEDS: BRIMONIDINE TARTRATE 0.2% OP SOLN 5 ML BTL 1 DROP RIGHT EYE ×2 (11:10→21:36)
[2023-10-30] MEDS: TAMSULOSIN HCL 0.4 MG CAPSULE PO (11:11)
[2023-10-30] MEDS: amLODIPine BESYLATE 5 MG TABLET 10 MG PO (11:11)
[2023-10-30] MEDS: lamoTRIgine 100 MG, lamoTRIgine 50 MG 150 MG PO ×2 (11:11→21:38)
[2023-10-30] MEDS: DUTASTERIDE 0.5 MG CAPSULE PO (11:12)
[2023-10-30] MEDS: POTASSIUM CHLORIDE 20 MEQ PACKET (FOR LIQUID) 40 MEQ PO (11:17)
[2023-10-30 15:06] LABS: Hemoglobin A1C 5.8 % (<5.7)
[2023-10-30 15:52] LABS: Appearance Urine Clear (Clear); Bilirubin Urine Negative (Negative); Blood Urine 3+ (Negative); Color Urine Yellow (Yellow); Glucose Urine UA Negative (Negative); Ketones Urine Negative (Negative); Leukocyte Esterase Ur Trace (Negative); Nitrate Urine Negative (Negative); Protein Urine 1+ (Negative); pH Urine 7.5 (5.0-8.0)
[2023-10-30 16:30] VITALS: BP 126/68; PULSE 89; RESP 16; TEMP 37.1; O2SAT 96
[2023-10-30] MEDS: WARFARIN (*PBKC) 5 MG TABLET PO (16:38)
[2023-10-30 16:42] LABS: Add Urine Microscopic? YES; Bacteria Urine 1+ /hpf; Squamous Epithelial Cell Urine Rare /hpf (Few)
[2023-10-30 20:00] VITALS: PULSE 89; RESP 16; O2SAT 96
[2023-10-30] MEDS: ENOXAPARIN 100 MG/ML SYRINGE 80 MG SUB-Q (21:37)
[2023-10-30] MEDS: LATANOPROST 0.005% OP SOLN 2.5 ML BTL 1 DROP EACH EYE (21:44)
[2023-10-31] VITALS: BP 114/65; PULSE 72; RESP 18; TEMP 36.6; O2SAT 95
[2023-10-31] MEDS: ACETAMINOPHEN 325 MG TABLET 650 MG PO (04:31)
[2023-10-31 05:24] LABS: Basophils Absolute Auto 0.02 K/mm3 (0.00-0.10); Basophils Percent Auto 0.2 % (0.0-1.0); Eosinophils Absolute Auto 0.21 K/mm3 (0.02-0.50); Eosinophils Percent Auto 2.1 % (1.0-6.0); Hematocrit 30.8 % (37.0-46.0); Hemoglobin 10.6 g/dL (12.4-15.3); Immature Granulocyte Absolute 0.17 K/mm3 (0.00-0.00); Immature Granulocyte Percent A 1.7 % (0.0-0.0); Lymphocytes Absolute Auto 1.94 K/mm3 (1.10-4.50); Lymphocytes Percent Auto 19.8 % (18.0-42.0); Mean Corpuscular HGB Conc 34.4 g/dL (32-36); Mean Corpuscular Hemoglobin 31.5 pg (27.0-31.0); Mean Corpuscular Volume 91.4 fL (78.0-102.0); Mean Platelet Volume 9.1 fl (8.7-11.0); Monocytes Absolute Auto 0.79 K/mm3 (0.10-0.90); Monocytes Percent Auto 8.1 % (2.0-11.0); Neutrophils Absolute Auto 6.66 K/mm3 (1.70-7.20); Neutrophils Percent Auto 68.1 % (50.0-70.0); Platelet Count Result 129 K/mm3 (150-420); Red Blood Count 3.37 M/mm3 (4.70-6.10); White Blood Count 9.8 K/mm3 (4.8-10.8)
[2023-10-31 05:38] LABS: INR 1.1; Prothrombin Time 12.4 Seconds (9.50-12.1)
[2023-10-31 05:47] LABS: Alanine Aminotransferase 51 U/L (16-63); Albumin Level 2.1 g/dL (3.4-5.0); Alkaline Phosphatase 57 U/L (46-116); Anion Gap 8 mmol/L (8-16); Aspartate Amino Transferase 21 U/L (15-37); Bilirubin,Total 0.5 mg/dL (0.00-1.00); Blood Urea Nitrogen 15 mg/dL (7-18); Calcium 7.6 mg/dL (8.5-10.1); Carbon Dioxide 26 mmol/L (21-32); Chloride 97 mmol/L (98-108); Estimated CRCL calculation 58 ml/min; Estimated Glomerular Filt Rate > 60; Glucose 109 mg/dL (70-99); Magnesium 1.9 mg/dL (1.8-2.4); Osmolality Calculated 273 mOsm/kg (285-295); Potassium 3.6 mmol/L (3.5-5.1); Sodium 131 mmol/L (136-145)
[2023-10-31] MEDS: FLUTICASONE PROPIONATE 0.05% NA SPR 16 GM BTL (*BKC) 1 SPRAY NASAL (09:46)
[2023-10-31] MEDS: ENOXAPARIN 100 MG/ML SYRINGE 80 MG SUB-Q ×2 (09:46→20:34)
--- NOTE | 2023-10-31 09:47 | PM.IMPN ---
Progress Note: A&P Assessment and Plan (1) Acute UTI: Code(s): N39.0 - Urinary tract infection, site not specified Status: Acute Assessment and Plan: 10/29: Indwelling Harry catheter for nearly a month without being changed. UA consistent with urinary tract infection and patient was fever I will with altered mental status. Treatment initiated with IV Rocephin which will be continued pending cultures. Blood culture and urine culture in process. Harry catheter was changed. We will likely recommend voiding trial in 5-7 days. 10/30: Urine culture not indicative of offending agent but patient improving with IV Rocephin. Will plan to continue cephalosporin for total of 7 days. (2) Weakness: Code(s): R53.1 - Weakness Status: Acute Assessment and Plan: Patient was generally not feeling well found to have fever slight altered mental status yesterday with apparent acute urinary tract infection (3) Antiplatelet or antithrombotic long-term use: Code(s): Z79.02 - terminologist (current) use of antithrombotics/antiplatelets Status: Acute Assessment and Plan: 10/29: Patient is supposed to be on warfarin was cleared to restart warfarin after discharge from [facility] but this had not happened yet. Communication with primary care office completed and we will begin proper dosing Lovenox and bridging to warfarin today. Previous warfarin dose was 4.5 mg daily. We will start with 5 mg daily and check daily INR while hospitalized. 10/30: INR is ordered for morning draw. Will plan to have daily lab for 5 days with results to PCP after discharge to bridge from Lovenox to warfarin. (4) Pre-diabetes: Code(s): R73.03 - Prediabetes Status: Acute Assessment and Plan: Will order hemoglobin A1c, morning glucose on daily labs slightly elevated but not excessively. 10/30: A1c 5.8. No SSI or fingerstick glucose orders needed at this time. (5) Pacemaker: Code(s): Z95.0 - Presence of cardiac pacemaker Status: Acute Assessment and Plan: Pacemaker placed in 2009 with generator replacement in 2019. (6) History of CVA (cerebrovascular accident): Code(s): Z86.73 - Personal history of transient ischemic attack (TIA), and cerebral infarction without residual deficits Status: Acute Assessment and Plan: Prior history of CVA patient is supposed to be on warfarin, residual dysphagia evaluated previously by speech therapy with recommendation for soft bite size diet with nectar thickened liquids. We will begin to bridge to warfarin appropriately today. 10/30: See plan above (7) Thrombocytopenia: Code(s): D69.6 - Thrombocytopenia, unspecified Status: Acute Assessment and Plan: History of ITP, platelets 129 with morning labs this morning. Will recheck daily. Monitor for decrease due to change in Lovenox dosing and addition of warfarin. 10/30: Stable PLT 129 today Plan Harry removal and voiding trial continue Lovenox to warfarin bridge Target conversion to oral antibiotics and discharge tomorrow Time Spent With Patient Time with patient: 25 - 35 minutes Subjective Date/time seen: 10/31/23 09:47 Interval history: Patient reports feeling much better. He is awake, alert, slightly confused at times without complaints or new/worsening symptoms. No further fevers. Urine culture did not single out an offending agent but he is improving drastically with use of IV Rocephin. Today we will try Harry removal and voiding trial. Labs show stable low sodium, good renal function. Lovenox bridging to warfarin in process. Will check INR tomorrow and determine need for continued Harry vs full discontinuation and hope to discharge back to [facility] tomorrow. Review of Systems Review of Systems: All systems reviewed & are unremarkable except as noted in HPI and below Exam Narrative: GENERAL: appears stated age, we
[2023-10-31] MEDS: TAMSULOSIN HCL 0.4 MG CAPSULE PO (09:48)
[2023-10-31] MEDS: amLODIPine BESYLATE 5 MG TABLET 10 MG PO (09:48)
[2023-10-31] MEDS: POTASSIUM CHLORIDE 20 MEQ ER TABLET PO (09:48)
[2023-10-31] MEDS: TIMOLOL MALEATE 0.5% OP SOLN 5 ML BOTTLE 1 DROP RIGHT EYE (09:49)
[2023-10-31] MEDS: BRIMONIDINE TARTRATE 0.2% OP SOLN 5 ML BTL 1 DROP RIGHT EYE ×2 (09:49→20:37)
[2023-10-31] MEDS: LOSARTAN POTASSIUM 25 MG TABLET 75 MG PO (09:49)
[2023-10-31] MEDS: DUTASTERIDE 0.5 MG CAPSULE PO (09:49)
[2023-10-31] MEDS: lamoTRIgine 100 MG, lamoTRIgine 50 MG 150 MG PO ×2 (09:49→20:37)
[2023-10-31 16:00] VITALS: BP 111/73; PULSE 68; RESP 18; TEMP 36.8; O2SAT 94
[2023-10-31] MEDS: WARFARIN (*PBKC) 5 MG TABLET PO (20:34)
[2023-10-31] MEDS: LATANOPROST 0.005% OP SOLN 2.5 ML BTL 1 DROP EACH EYE (20:37)
[2023-10-31] MEDS: SIMVASTATIN 10 MG TABLET 20 MG PO (20:37)
--- NOTE | 2023-10-31 22:56 | PC.NURSE ---
Per ACCOUNT SERVICES MANAGER Ezequiel, bladder scan of pt complete due to no urine output. At this time noted 612 ml of urine in bladder. 16 F Harry catheter placed per order, using sterile technique. Pt tolerated procedure well. Dark yellow urine on immediate return of placement. Stabilization device applied to left thigh.
[2023-11-01] VITALS: BP 128/85; PULSE 92; RESP 16; TEMP 37; O2SAT 98
[2023-11-01 06:03] LABS: Basophils Absolute Auto 0.05 K/mm3 (0.00-0.10); Basophils Percent Auto 0.6 % (0.0-1.0); Eosinophils Absolute Auto 0.13 K/mm3 (0.02-0.50); Eosinophils Percent Auto 1.4 % (1.0-6.0); Hematocrit 34.2 % (37.0-46.0); Immature Granulocyte Absolute 0.19 K/mm3 (0.00-0.00); Immature Granulocyte Percent A 2.1 % (0.0-0.0); Lymphocytes Absolute Auto 1.74 K/mm3 (1.10-4.50); Lymphocytes Percent Auto 19.3 % (18.0-42.0); Mean Corpuscular HGB Conc 32.2 g/dL (32-36); Mean Corpuscular Hemoglobin 30.7 pg (27.0-31.0); Mean Corpuscular Volume 95.5 fL (78.0-102.0); Mean Platelet Volume 10.5 fl (8.7-11.0); Monocytes Absolute Auto 0.68 K/mm3 (0.10-0.90); Monocytes Percent Auto 7.5 % (2.0-11.0); Neutrophils Absolute Auto 6.22 K/mm3 (1.70-7.20); Neutrophils Percent Auto 69.1 % (50.0-70.0); Platelet Count Result 120 K/mm3 (150-420); Red Blood Count 3.58 M/mm3 (4.70-6.10)
[2023-11-01 06:11] LABS: INR 1.1; Prothrombin Time 11.9 Seconds (9.50-12.1)
[2023-11-01 06:18] LABS: Alanine Aminotransferase 48 U/L (16-63); Alkaline Phosphatase 64 U/L (46-116); Anion Gap 10 mmol/L (8-16); Aspartate Amino Transferase 20 U/L (15-37); Bilirubin,Total 0.4 mg/dL (0.00-1.00); Blood Urea Nitrogen 14 mg/dL (7-18); Calcium 7.9 mg/dL (8.5-10.1); Carbon Dioxide 23 mmol/L (21-32); Chloride 99 mmol/L (98-108); Estimated CRCL calculation 61 ml/min; Estimated Glomerular Filt Rate > 60; Glucose 103 mg/dL (70-99); Magnesium 2.1 mg/dL (1.8-2.4); Osmolality Calculated 274 mOsm/kg (285-295); Sodium 132 mmol/L (136-145); Total Protein 5.4 g/dL (6.4-8.2)
--- NOTE | 2023-11-01 07:48 | PM.DS ---
DS: Admitting Diagnosis Discharge Date 11/01/2023 Admitting Diagnosis acute UTI, weakness, Antiplatelet or antithrombotic long-term use, Pre-diabetes, Pacemaker, history of CVA, Thrombocytopenia DS: Discharge Diagnosis Discharge Diagnosis (1) Acute UTI: Code(s): N39.0 - Urinary tract infection, site not specified Status: Acute (2) Weakness: Code(s): R53.1 - Weakness Status: Acute (3) Urinary retention: Code(s): R33.9 - Retention of urine, unspecified Status: Acute (4) Pre-diabetes: Code(s): R73.03 - Prediabetes Status: Acute (5) Pacemaker: Code(s): Z95.0 - Presence of cardiac pacemaker Status: Chronic (6) History of CVA (cerebrovascular accident): Code(s): Z86.73 - Personal history of transient ischemic attack (TIA), and cerebral infarction without residual deficits Status: Chronic (7) Thrombocytopenia: Code(s): D69.6 - Thrombocytopenia, unspecified Status: Chronic (8) Harry catheter in place on admission: Code(s): Z97.8 - Presence of other specified devices Status: Chronic (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 Patient was admitted to skilled nursing from [facility] with Harry catheter in place due to urinary retention. Patient had a fever with altered LOC. In ER UA appears infectious. Started treatment with Rocephin and patient no longer febrile and LOC returned to normal. Urine culture was mixed shilpi but patient improved so UTI is ruled in. Blood cultures negative growth to date. In reviewing paperwork it was found that patient was supposed to bridge from Lovenox back to warfarin a week after discharge from [facility] but this never happened. I spoke to Dr. Dale's office on earlier in the week and started warfain with daily INR. warfarin started at 5 mg daily and Lovenox dosing was started at proper dosing per weight. Thus far INR has not changed. Prescription for warfarin and Lovenox sent to patient pharmacy. Will complete antibiotic course with cefdinir through evening dose on 11/02. We attempted to remove Harry for voiding trial but patient had not urinated in over 8 hours and had over 600 mL urine retained so catheter was replaced. Report given to Correction nurse and patient will go back by wheelchair this afternoon. Status at Discharge Cognitive/behavioral status at discharge: awake, alert, baseline mildly confused, very pleasant Functional status at discharge: wheelchair bound Overall status at discharge: patient is progressing back to baseline Time Spent with Patient Time attestation: Total time spent providing and/or coordinating discharge services: 40 minutes Time spent: Greater than 30 minutes Exam Narrative: GENERAL: appears stated age, well-nourished, and in no acute distress. HEAD: Normocephalic, atraumatic. ENT:? Mucous membranes moist. CHEST: Clear to auscultation.? No respiratory distress. HEART: Regular rate and irregular rhythm. ? Normal peripheral pulses. ABDOMEN: Soft, nontender, nondistended. Harry catheter in place with clear yellow urine EXTREMITIES: Normal range of motion. No peripheral edema. SKIN: Warm dry normal color NEURO: Alert Awake mostly oriented slight confusion which is believed to be baseline. Moves all extremities well. Transfers with assist of 1. Residual facial droop from prior CVA PSYCH: Normal mood and affect DS: Data Data Completed and Pending Completed studies during hospitalization: Head CT, CXR, CTA chest Labs on day of discharge: Labs from last 24 hours 11/01/23 05:49 WBC 9.0
[2023-11-01 08:00] VITALS: BP 124/78; PULSE 78; RESP 18; TEMP 36; O2SAT 93
[2023-11-01] MEDS: DUTASTERIDE 0.5 MG CAPSULE PO (09:06)
[2023-11-01] MEDS: ENOXAPARIN 100 MG/ML SYRINGE 80 MG SUB-Q (09:06)
[2023-11-01] MEDS: amLODIPine BESYLATE 5 MG TABLET 10 MG PO (09:07)
[2023-11-01] MEDS: CEFDINIR 300 MG CAPSULE PO (09:07)
[2023-11-01] MEDS: LOSARTAN POTASSIUM 25 MG TABLET 75 MG PO (09:07)
[2023-11-01] MEDS: lamoTRIgine 100 MG, lamoTRIgine 50 MG 150 MG PO (09:07)
[2023-11-01] MEDS: TAMSULOSIN HCL 0.4 MG CAPSULE PO (09:08)
[2023-11-01] MEDS: POTASSIUM CHLORIDE 20 MEQ ER TABLET PO (09:08)
[2023-11-01] MEDS: BRIMONIDINE TARTRATE 0.2% OP SOLN 5 ML BTL 1 DROP RIGHT EYE (09:11)
[2023-11-01] MEDS: TIMOLOL MALEATE 0.5% OP SOLN 5 ML BOTTLE 1 DROP RIGHT EYE (09:12)
[2023-11-01] MEDS: FLUTICASONE PROPIONATE 0.05% NA SPR 16 GM BTL (*BKC) 1 SPRAY NASAL (09:18)
--- NOTE | 2023-11-01 13:58 | PC.NURSE ---
1350 up in [place] per valdemar gómez to prior to lunch. mod amt of soft mushy stool. samantha CLIFFORD took paperwork and walked over nh this am and gave laury report. [facility] staff here for patient. personal belongings sent with him.
--- NOTE | 2023-11-02 09:27 | PC.NURSE ---
Discharge call back to long term, no questions regarding dc instructions
== END 2023-11-01 13:50 | DRG 699 ==
LOC: CHSED 16:33 → CHS2ND 16:47
PROVIDERS: Nurse Practitioner; Admitting Provider Internal Medicine; Emergency Provider Emergency Medicine; PCP Internal Medicine; Visit Provider Internal Medicine
DX: T83.511A Infection and inflammatory reaction due to indwelling urethral catheter, initial encounter (principal); I42.9 Cardiomyopathy, unspecified; D69.6 Thrombocytopenia, unspecified; E78.5 Hyperlipidemia, unspecified; R73.03 Prediabetes; I69.391 Dysphagia following cerebral infarction; R13.10 Dysphagia, unspecified; Z95.0 Presence of cardiac pacemaker; Z79.02 Long term (current) use of antithrombotics/antiplatelets; Z99.3 Dependence on wheelchair
CPT/HCPCS: 36415; 70450; 71045; 71275; 80053; 81001; 83036; 83605; 83735; 83880; 84484; 85025; 85380; 85610; 86140; 87040; 87086; 87088; 87637; 93005; 96365; 97161; 97165; 99285; A9270; G0378; J0696; J1650; J7120; Q9967

== ENCOUNTER 2023-11-02 06:39 | Outpatient (NON) | payer MEDICARE, SELFPAY ==
[2023-11-02 07:06] LABS: INR 1.2; Prothrombin Time 12.7 Seconds (9.50-12.1)
== END 2023-11-02 06:40 | disposition home or self-care (01) ==
LOC: CHSLAB 06:40
PROVIDERS: PCP Internal Medicine; Visit Provider Nurse Practitioner
DX: I48.91 Unspecified atrial fibrillation (principal); Z86.73 Personal history of transient ischemic attack (TIA), and cerebral infarction without residual deficits; Z79.01 Long term (current) use of anticoagulants
CPT/HCPCS: 36415; 85610

== ENCOUNTER 2023-12-04 10:45 | Outpatient (CLI) | payer MEDICARE, SELFPAY ==
--- NOTE | ~2023-12-04 | CT_ITS ---
EXAMINATION: CT diagnostic chest wo con DATE: 12/04/2023 11:26 INDICATION: dyspnea/wheezing/chronic cough/ TECHNIQUE: Computed tomography (CT) of the chest was performed without intravenous contrast. Addition al 3D reconstructions utilizing coronal maximum intensity projection (MIP) were performed. Automated exposure control and iterative reconstruction technique were employed. The dose-length product was 28 5.79 mGy-cm. COMPARISON: 10/29/2023 FINDINGS: Minimal dependent atelectasis in the bilateral lower lobes. Calcified nodules in the superior segment of the right lower lobe consistent with old granulomatous disease. 3 mm likely para fissural lymph n ode along the left major fissure. No other suspicious pulmonary nodules, pneumonia, pulmonary edema, pleural effusion or pneumothorax. Heart size is normal. Small amount of atherosclerotic coronary shaun ry calcification. No pericardial effusion. Dual lead pacemaker seen with lead tips at the right atriu m and right ventricle. Thoracic aorta is normal in caliber. No pathologically enlarged thoracic lymph adenopathy. Unchanged mild focal hepatic steatosis along the ligamentum teres. [address] one at the upper pole of the left kidney. There are multiple unchanged chronic compression and burst fractures. Also unchanged is a subacute appearing T4 compression fracture with linear sclerosis under lying the depressed superior endplate. There is new additional small amount of linear sclerosis under lying the posterior aspect of the inferior endplate of L3 suspicious for an additional acute or subac nohemi compression fracture. IMPRESSION: 1. No acute cardiopulmonary disease. 2. Small sliding-type hiatal hernia. 3. 3 mm nonobstructing left renal stone. 4. Likely acute to subacute inferior endplate compression fractures with minimal vertebral body heigh t loss at T3. Reviewed, dictated and finalized at location A. IMPRESSION: 1. No acute cardiopulmonary disease. 2. Small sliding-type hiatal hernia. 3. 3 mm nonobstructing left renal stone. 4. Likely acute to subacute inferior endplate compression fractures with minima l vertebral body height loss at T3.
[2023-12-04 11:09] LABS: Basophils Absolute Auto 0.05 K/mm3 (0.00-0.10); Basophils Percent Auto 0.4 % (0.0-1.0); Eosinophils Absolute Auto 0.22 K/mm3 (0.02-0.50); Eosinophils Percent Auto 1.9 % (1.0-6.0); Hematocrit 37.6 % (37.0-46.0); Hemoglobin 12.2 g/dL (12.4-15.3); Immature Granulocyte Absolute 0.13 K/mm3 (0.00-0.00); Immature Granulocyte Percent A 1.1 % (0.0-0.0); Immature Reticulocyte Fraction 22.6 % (2.0-16.52); Lymphocytes Absolute Auto 3.02 K/mm3 (1.10-4.50); Lymphocytes Percent Auto 26.2 % (18.0-42.0); Mean Corpuscular HGB Conc 32.4 g/dL (32-36); Mean Corpuscular Volume 95.7 fL (78.0-102.0); Monocytes Absolute Auto 1.24 K/mm3 (0.10-0.90); Monocytes Percent Auto 10.7 % (2.0-11.0); Neutrophils Absolute Auto 6.88 K/mm3 (1.70-7.20); Neutrophils Percent Auto 59.7 % (50.0-70.0); Platelet Count Result 161 K/mm3 (150-420); Red Blood Count 3.93 M/mm3 (4.70-6.10); Red Cell Distribution Width 15.3 % (11.6-14.4); Reticulocyte Hemoglobin Conten 34.6 pg (28.0-35.0); Reticulocyte Percent 4.09 % (0.50-1.50); Reticulocytes Absolute 0.16 M/mm3 (0.02-0.10); White Blood Count 11.5 K/mm3 (4.8-10.8)
[2023-12-04 12:15] LABS: Ferritin 406 ng/mL (26-388); Iron 48 ug/dL (65-175); NT Pro B Type Natriuretic Pept 565 pg/mL (0-450)
== END 2023-12-04 10:46 | disposition home or self-care (01) ==
PROVIDERS: PCP Internal Medicine; Visit Provider Internal Medicine
DX: R06.00 Dyspnea, unspecified (principal); R05.9 Cough, unspecified; K44.9 Diaphragmatic hernia without obstruction or gangrene; N20.0 Calculus of kidney; D64.9 Anemia, unspecified
CPT/HCPCS: 36415; 71250; 82728; 83540; 83880; 85025; 85046

== ENCOUNTER 2024-01-18 14:51 | Outpatient (CLI) | payer MEDICARE, SELFPAY ==
[2024-01-18 15:18] LABS: Hematocrit 38.3 % (37.0-46.0); Hemoglobin 12.5 g/dL (12.4-15.3); Mean Corpuscular HGB Conc 32.6 g/dL (32-36); Mean Corpuscular Hemoglobin 31.7 pg (27.0-31.0); Mean Corpuscular Volume 97.2 fL (78.0-102.0); Mean Platelet Volume 9.3 fl (8.7-11.0); Platelet Count Result 125 K/mm3 (150-420); Red Blood Count 3.94 M/mm3 (4.70-6.10); Red Cell Distribution Width 14.3 % (11.6-14.4); White Blood Count 7.3 K/mm3 (4.8-10.8)
[2024-01-18 15:26] LABS: INR 2.2; Prothrombin Time 22.5 Seconds (9.50-12.1)
[2024-01-18 16:25] LABS: Alanine Aminotransferase 26 U/L (16-63); Albumin Level 3.4 g/dL (3.4-5.0); Alkaline Phosphatase 91 U/L (46-116); Anion Gap 12 mmol/L (4-12); Aspartate Amino Transferase 22 U/L (15-37); Bilirubin,Total 0.3 mg/dL (0.00-1.00); Blood Urea Nitrogen 28 mg/dL (7-18); Calcium 8.5 mg/dL (8.5-10.1); Carbon Dioxide 24 mmol/L (21-32); Chloride 106 mmol/L (98-108); Estimated Glomerular Filt Rate 58; Ferritin 230 ng/mL (26-388); Glucose 106 mg/dL (70-99); Iron 69 ug/dL (65-175); Osmolality Calculated 299 mOsm/kg (285-295); Potassium 4.2 mmol/L (3.5-5.1); Sodium 142 mmol/L (136-145); Total Protein 6.6 g/dL (6.4-8.2)
== END 2024-01-18 14:52 | disposition home or self-care (01) ==
LOC: CHSLAB 14:55
PROVIDERS: PCP Internal Medicine; Visit Provider Internal Medicine
DX: N40.1 Benign prostatic hyperplasia with lower urinary tract symptoms (principal); I10 Essential (primary) hypertension; D64.9 Anemia, unspecified; Z79.01 Long term (current) use of anticoagulants
CPT/HCPCS: 36415; 80053; 82728; 83540; 85027; 85610

== ENCOUNTER 2024-04-06 07:41 | Outpatient (RCR) | payer MEDICARE, SELFPAY ==
[2024-02-22 07:52] LABS: INR 1.2; Prothrombin Time 13.2 Seconds (9.50-12.1)
[2024-03-01 08:28] LABS: INR 1.5; Prothrombin Time 16.4 Seconds (9.50-12.1)
[2024-03-09 08:01] LABS: INR 2.6; Prothrombin Time 26.5 Seconds (9.50-12.1)
[2024-03-23 08:18] LABS: INR 2.7; Prothrombin Time 27.7 Seconds (9.50-12.1)
[2024-04-06 08:14] LABS: INR 3.4; Prothrombin Time 34.4 Seconds (9.50-12.1)
== END 2024-05-22 23:59 | disposition home or self-care (01) ==
LOC: CHSLAB 07:41
PROVIDERS: PCP Internal Medicine; Visit Provider Internal Medicine
DX: Z51.81 Encounter for therapeutic drug level monitoring (principal); Z79.01 Long term (current) use of anticoagulants
CPT/HCPCS: 36415; 85610

== ENCOUNTER 2024-04-17 12:29 | Emergency (ER) | payer MEDICARE, SELFPAY ==
--- NOTE | ~2024-04-17 | XR_ITS ---
AP and oblique views of the bilateral ribs, and PA and lateral chest radiographs Clinical History: Pain Findings: No rib fracture is seen. Osseous alignment is anatomic. Lungs are clear, without focal cons olidation or pleural effusion. Cardiomediastinal contour is within normal limits, with pacemaker diana ce. Soft tissues are unremarkable. Moderate compression fracture of L2 present. There also moderate c ompression fractures of T6 and T8. Impression: No rib fracture is seen. Clear lungs. Moderate compression fractures of T6, T8, L2. Reviewed, dictated and finalized at location M. Impression: No rib fracture is seen. Clear lungs. Moderate compression fractures of T6, T8, L2.
--- NOTE | ~2024-04-17 | CT_ITS ---
CT head without contrast Indication: Status post fall COMPARISON: 10/29/2023 Technique: Serial scans were obtained through the brain without the administration of contrast. Dose reduction technique was used on this scan by utilizing automated exposure control and iterative recon struction technique. The dose-length product (DLP) was 681.00 mGy-cm. Findings: There is no evidence of intracranial hemorrhage, mass lesion, or acute infarct. There are c hronic infarcts in the left occipital lobe and posterior right temporal lobe. The ventricles and suba rachnoid spaces are dilated, consistent with moderate atrophy. Low attenuation regions are seen with in the periventricular white matter bilaterally, likely representing changes from chronic microvascul ar ischemic disease. There is no evidence of edema, mass effect or midline shift. There is left sphe noid sinus disease. The remaining visualized paranasal sinuses and mastoid air cells are clear. Impression: No intracranial hemorrhage, mass, or acute infarct. Chronic infarcts, as above. Atrophy and chronic white matter changes, as above. Reviewed, dictated and finalized at location . Impression: No intracranial hemorrhage, mass, or acute infarct. Chronic infarcts, as above. Atrophy and chronic white matter changes, as above.
--- NOTE | ~2024-04-17 | CT_ITS ---
CT Facial Bones and Cervical Spine Clinical Indication: Status post fall Technique: Contiguous axial scans were obtained through the facial bones and cervical spine followed by coronal and sagittal reconstructions. Dose reduction technique was used on this scan by utilizing automated exposure control and iterative reconstruction technique. The dose-length product (DLP) was 459.60 mGy-cm. Findings: CT facial bones: No fractures are identified. The visualized paranasal sinuses are clear. Intraorbita l soft tissues appear normal. There is focal soft tissue swelling over the left cheek. CT cervical spine: No fractures or subluxation. There is moderate degenerative disc narrowing at C3- C4 and C5-C6. There are mild facet joint degenerative changes throughout the cervical spine. There is bilateral neural foraminal narrowing at C5-C6. No prevertebral soft tissue swelling. Impression: No fracture is seen in the facial bones. No fracture or subluxation of the cervical spine. Degenerative change in the cervical spine, as above. Reviewed, dictated and finalized at location . Impression: No fracture is seen in the facial bones. No fracture or subluxation of the cervical spine. Degenerative change in the cervical spine, as above.
--- NOTE | ~2024-04-17 | XR_ITS ---
Right elbow Technique: AP, oblique, and lateral views were obtained. Clinical History: Pain Findings: No acute fracture or dislocation is seen. Osseous alignment is anatomic. Joint spaces are p reserved. There is no displacement of the fat pads, and soft tissues are unremarkable. Impression: Unremarkable radiographs. Reviewed, dictated and finalized at location . Impression: Unremarkable radiographs.
--- NOTE | 2024-04-17 12:31 | ED.FALL ---
HPI - Fall General Chief Complaint: Fall Stated Complaint: fall Time Seen by Provider: 04/17/24 12:31 Source: patient Mode of arrival: EMS Limitations: no limitations History of Present Illness HPI Narrative: Patient is a 83-year-old male with a prior stroke this year and no deficits and he is on Coumadin. Patient took a fall accidentally prior to arrival. This was a mechanical fall. Patient was flipping over a environment artist and when he was flipping it back lost his balance and fell on the rocks. He sustained a head and face injury, bilateral elbows and rib pains. MD complaint: fall Onset (ago): hour(s) (1) Fall from: standing Fall witnessed: no Place fall occurred: home and street Loss of consciousness: none Prolonged down time: no Symptoms prior to fall: none Context: tripped/slipped Location of injury: head, face, chest ( ribs) and other ( Bilateral elbows) Severity: mild Severity scale (1-10): 2 Quality: burning Associated symptoms (after fall): denies Related Data Home Medications Medication Instructions Recorded Confirmed brimonidine 0.2 % eye drops 1 drp ophthalmic (eye) BID 02/29/20 04/17/24 latanoprost 0.005 % eye drops 1 drp ophthalmic (eye) HS 02/29/20 04/17/24 (Xalatan) simvastatin 20 mg tablet (Zocor) 20 mg PO HS 02/29/20 04/17/24 timolol 0.5 % eye drops (Betimol) 1 drp ophthalmic (eye) DAILY 02/29/20 04/17/24 losartan 25 mg tablet (Cozaar) 75 mg PO DAILY 03/01/20 04/17/24 amlodipine 10 mg tablet (Norvasc) 10 mg PO DAILY 09/19/23 04/17/24 dutasteride 0.5 mg capsule 0.5 mg PO DAILY 10/20/23 04/17/24 vitamin B complex-vit B12 500 mcg PO DAILY 10/20/23 04/17/24 acetaminophen 325 mg tablet 650 mg PO Q4H PRN Pain 10/29/23 04/17/24 aluminum-mag hydroxide-simethicone 20 ml PO QID PRN Indigestion 10/29/23 04/17/24 200 mg-200 mg-20 mg/5 mL oral susp fluticasone propionate 50 1 spray intranasal DAILY 10/29/23 04/17/24 mcg/actuation nasal spray,suspension potassium chloride 20 mEq 20 meq PO DAILY 10/29/23 04/17/24 tablet,extended release Allergies Allergy/AdvReac Type Severity Reaction Status Date / Time No Known Allergies Allergy Verified 04/17/24 13:18 Review of Systems Review of Systems: All systems reviewed & are unremarkable except as noted in HPI and below Constitutional: Constitutional: Reports no additional constitutional complaints Eyes: Eyes: Reports no additional eye complaints ENT: Reports system reviewed and no additional complaints, except as documented Cardiovascular: Cardiovascular: Reports no additional cardiovascular complaints Respiratory: Respiratory: Reports no additional respiratory complaints Gastrointestinal: Gastrointestinal: Reports no additional gastrointestinal complaints Genitourinary: Genitourinary: Reports no additional male genitourinary complaints Musculoskeletal: Musculoskeletal: Reports no additional musculoskeletal complaints Integumentary/Breasts: Skin/Breast: Reports system reviewed and no additional complaints, except as docu Neurologic: Reports system reviewed and no additional complaints, except as documented Psychiatric: Psychiatric: Reports no additional psychiatric complaints Endocrine: Endocrine: Reports no additional endocrine complaints Hematologic/Lymphatic: Hematologic/Lymphatic: Reports no additional hematologic/lymphatic complaints Allergic/Immunologic: Allergic/Immunologic: Reports no additional allergic/immunologic complaints PMFSH Past Medical History Medical History Cardiomyopathy 03/2019 EF 40% by echo Complete heart block [employer] pacemaker 2009 CVA (cerebral vascular accident) History of TIA, then CVA 07/2018, treated with warfarin History of CVA (cerebrovascular accident) Hyperlipidemia [facility] current use of anticoagulant Pacemaker 2009 [employer] pacemaker, 2019 generator change Pre-diabetes Seizure Thrombocytopenia Has ITP treated by [facility]
[2024-04-17 12:39] VITALS: BP 95/60; PULSE 87; RESP 20; TEMP 36.4; O2SAT 93
[2024-04-17] MEDS: NEOMYCIN/POLYMYXIN/BACITRACIN OINTMENT PACKET 4 PACKET TOPICAL (13:17)
[2024-04-17 14:37] VITALS: BP 138/93; PULSE 74; RESP 18; TEMP 36.3; O2SAT 96
== END 2024-04-17 14:49 | disposition home or self-care (01) ==
PROVIDERS: Emergency Provider Emergency Medicine; PCP Internal Medicine
DX: S00.81XA Abrasion of other part of head, initial encounter (principal); S50.312A Abrasion of left elbow, initial encounter; S50.311A Abrasion of right elbow, initial encounter; E78.5 Hyperlipidemia, unspecified; Z79.899 Other long term (current) drug therapy; Z86.73 Personal history of transient ischemic attack (TIA), and cerebral infarction without residual deficits; W18.39XA Other fall on same level, initial encounter; Y92.008 Other place in unspecified non-institutional (private) residence as the place of occurrence of the external cause
CPT/HCPCS: 70450; 70486; 71046; 71110; 72125; 73080; 99284

== ENCOUNTER 2024-04-27 17:25 | Emergency (ER) | payer MEDICARE, SELFPAY ==
--- NOTE | ~2024-04-27 | XR_ITS ---
XR chest 1V portable Ordering provider: Angle Leija MD History: 83 years Male with . COVID positive with cough . Comparison: April 17, 2024 FINDINGS: MEDIASTINUM: The cardiac silhouette is not enlarged. Left bipolar pacemaker. LUNGS: No infiltrates, effusions or pneumothorax. OTHER: No free air under the diaphragm. IMPRESSION: No acute cardiopulmonary pathology. Reviewed, dictated and finalized at location A.
[2024-04-27 17:25] VITALS: BP 123/72; PULSE 85; RESP 14; TEMP 36.4; O2SAT 96; O2SAT 98
--- NOTE | 2024-04-27 17:33 | ED.URI ---
HPI - URI/Sore Throat General Chief Complaint: Upper Respiratory Infection Stated Complaint: covid symptoms/sore throat Source: patient Mode of arrival: ambulatory Limitations: no limitations History of Present Illness HPI Narrative: 83-year-old male with a history of hypertension, dyslipidemia, prediabetes, CVA with TIA, BPH, ITP, cardiomyopathy with an EF of 40%, complete heart block status post pacemaker, on anticoagulation presents to the ED with -- 3 day history of cough which is productive of mucoid sputum -- sore throat -- diarrhea -- tested positive for COVID on a home test. the patient had a fall on 04/17/2024 and sustained bruising around the left periorbital region, right upper extremity, back no fever or chills no chest pain MD elicited complaint: cough and sore throat Onset (ago): day(s) ( 3 days) Consistency: constant Severity: mild Description of mucous: clear Able to tolerate fluids by mouth: Yes Exacerbating factors: nothing Relieving factors: nothing Associated symptoms: denies other symptoms, sore throat and cough Related Data Home Medications Medication Instructions Recorded Confirmed brimonidine 0.2 % eye drops 1 drp ophthalmic (eye) BID 02/29/20 04/27/24 latanoprost 0.005 % eye drops 1 drp ophthalmic (eye) HS 02/29/20 04/27/24 (Xalatan) simvastatin 20 mg tablet (Zocor) 20 mg PO HS 02/29/20 04/27/24 timolol 0.5 % eye drops (Betimol) 1 drp ophthalmic (eye) DAILY 02/29/20 04/27/24 losartan 25 mg tablet (Cozaar) 75 mg PO DAILY 03/01/20 04/27/24 amlodipine 10 mg tablet (Norvasc) 10 mg PO DAILY 09/19/23 04/27/24 dutasteride 0.5 mg capsule 0.5 mg PO DAILY 10/20/23 04/27/24 vitamin B complex-vit B12 500 mcg PO DAILY 10/20/23 04/27/24 acetaminophen 325 mg tablet 650 mg PO Q4H PRN Pain 10/29/23 04/27/24 aluminum-mag hydroxide-simethicone 20 ml PO QID PRN Indigestion 10/29/23 04/27/24 200 mg-200 mg-20 mg/5 mL oral susp fluticasone propionate 50 1 spray intranasal DAILY 10/29/23 04/27/24 mcg/actuation nasal spray,suspension potassium chloride 20 mEq 20 meq PO DAILY 10/29/23 04/27/24 tablet,extended release warfarin 1 mg tablet 1 mg PO DAILY 04/27/24 04/27/24 Allergies Allergy/AdvReac Type Severity Reaction Status Date / Time No Known Allergies Allergy Verified 04/17/24 13:18 Review of Systems Review of Systems: All systems reviewed & are unremarkable except as noted in HPI and below Constitutional: Constitutional: Reports as per HPI and Reports no additional constitutional complaints Eyes: Eyes: Reports as per HPI and Reports no additional eye complaints ENT: Reports system reviewed and no additional complaints, except as documented and Reports as per HPI Cardiovascular: Cardiovascular: Reports as per HPI and Reports no additional cardiovascular complaints Respiratory: Respiratory: Reports as per HPI, Reports no additional respiratory complaints and Reports cough Gastrointestinal: Gastrointestinal: Reports as per HPI, Reports no additional gastrointestinal complaints and Reports diarrhea Genitourinary: Genitourinary: Reports no additional male genitourinary complaints and Reports as per HPI Musculoskeletal: Musculoskeletal: Reports no additional musculoskeletal complaints and Reports as per HPI Integumentary/Breasts: Skin/Breast: Reports system reviewed and no additional complaints, except as docu and Reports as per HPI Comments: extensive bruising over the left periorbital region, right upper extremity, back Neurologic: Reports system reviewed and no additional complaints, except as documented and Reports as per HPI Psychiatric: Psychiatric: Reports no additional psychiatric complaints and Reports as per HPI Endocrine: Endocrine: Reports no additional endocrine complaints and Reports as per HPI Hematologic/Lymphatic: Hematologic/Lymphatic: Reports no additional hematologic/lymphatic complaints and Reports as per HPI Allergic/Immunologic: Allergic/Immunologic: Reports no add
--- NOTE | 2024-04-27 17:46 | ECG_ITS ---
Test Date: 2024-04-27 18:08:46 Measurements Intervals [place] Rate: 78 P: 39 IA: 176 QRS: -73 QRSD: 174 T: 80 QT: 429 QTc: 491 Interpretive Statements ATRIAL SENSE- ELECTRONIC VENTRICULAR PACEMAKER BASELINE ARTIFACT- I, II, III, AVR, AVL, AVF, V1-V2, V4-V5 NO FURTHER INTERPRETATION IS POSSIBLE ATYPICAL ECG No previous ECG available for comparison Electronically Signed On 04-27-2024 19:27:51 CDT by Keshav Mead D.O.
[2024-04-27 18:07] LABS: Basophils Absolute Auto 0.03 K/mm3 (0.00-0.10); Basophils Percent Auto 0.2 % (0.0-1.0); Hematocrit 38.3 % (37.0-46.0); Hemoglobin 12.7 g/dL (12.4-15.3); Immature Granulocyte Absolute 0.14 K/mm3 (0.00-0.00); Immature Granulocyte Percent A 1.2 % (0.0-0.0); Lymphocytes Absolute Auto 2.47 K/mm3 (1.10-4.50); Lymphocytes Percent Auto 20.5 % (18.0-42.0); Mean Corpuscular HGB Conc 33.2 g/dL (32-36); Mean Corpuscular Hemoglobin 30.8 pg (27.0-31.0); Mean Platelet Volume 8.7 fl (8.7-11.0); Monocytes Percent Auto 9.1 % (2.0-11.0); Neutrophils Absolute Auto 8.31 K/mm3 (1.70-7.20); Platelet Count Result 122 K/mm3 (150-420); Red Blood Count 4.12 M/mm3 (4.70-6.10); Red Cell Distribution Width 14.4 % (11.6-14.4); White Blood Count 12.1 K/mm3 (4.8-10.8)
[2024-04-27 18:21] LABS: INR 3.1; Partial Thromboplastin Time 60.5 Sec (23.9-30.70); Prothrombin Time 31.4 Seconds (9.50-12.1)
[2024-04-27 18:26] LABS: Alanine Aminotransferase 22 U/L (16-63); Alkaline Phosphatase 76 U/L (46-116); Anion Gap 6 mmol/L (4-12); Aspartate Amino Transferase 24 U/L (15-37); Bilirubin,Total 0.5 mg/dL (0.00-1.00); Blood Urea Nitrogen 21 mg/dL (7-18); Calcium 8.6 mg/dL (8.5-10.1); Carbon Dioxide 30 mmol/L (21-32); Chloride 99 mmol/L (98-108); Estimated CRCL calculation 34 ml/min; Estimated Glomerular Filt Rate 42; Glucose 111 mg/dL (70-99); Lactic Acid Reflex 2.1 mmol/L (0.4-2.0); Osmolality Calculated 284 mOsm/kg (285-295); Sodium 135 mmol/L (136-145); Total Protein 6.7 g/dL (6.4-8.2)
[2024-04-27 18:28] LABS: CRP 7.1 mg/dL (0.0-0.9); Troponin I 44.4 ng/L (0.00-60.4)
[2024-04-27] MEDS: LACTATED RINGERS 1,000 ML 999 ML IV CONT (18:56)
[2024-04-27 19:00] LABS: Influenza A QL RT-PCR Negative (Negative); Influenza B QL RT-PCR Negative (Negative); RSV RNA, RT-PCR Negative (Negative); SARS-CoV-2 RNA PCR Positive (Negative)
--- NOTE | 2024-04-27 19:00 | PC.NURSE ---
assumed care from Pipe GAMBOA
[2024-04-27 19:01] LABS: Strep Group A RT-PCR Not Detected (Negative)
--- NOTE | 2024-04-27 19:02 | PC.NURSE ---
pt report to bee cueto/BEE Lima.
[2024-04-27 19:33] LABS: Appearance Urine Clear (Clear); Color Urine Yellow (Yellow); Glucose Urine UA Negative (Negative); Ketones Urine Negative (Negative); Protein Urine Trace (Negative); Specific Grav Ur 1.015 (1.010-1.020)
--- NOTE | 2024-04-27 19:33 | PC.NURSE ---
updated pt on plan of care and waiting for brother to get here for ride. voiced understanding. call light in reach
[2024-04-27 19:34] LABS: Add Urine Microscopic? YES; Bacteria Urine Trace /hpf; Bilirubin Urine Negative (Negative); Blood Urine 1+ (Negative); Leukocyte Esterase Ur Negative LEU/UL (Negative); Nitrate Urine Negative (Negative); RBC Urine 0-2 /hpf (0-2); Urobilinogen Urine 0.2 mg/dL (0.2-1.0); WBC Urine 0-3 /hpf (0-3)
[2024-04-27 19:55] VITALS: BP 138/99; PULSE 89; RESP 20; O2SAT 90
[2024-04-27 21:04] LABS: Reflex Lactic Acid Yes or No Add Lactic
== END 2024-04-27 19:55 | disposition home or self-care (01) ==
PROVIDERS: Emergency Provider Internal Medicine Critical Care Medicine; PCP Internal Medicine
DX: U07.1 COVID-19 (principal); N17.9 Acute kidney failure, unspecified; I10 Essential (primary) hypertension; E78.5 Hyperlipidemia, unspecified; Z86.73 Personal history of transient ischemic attack (TIA), and cerebral infarction without residual deficits; Z79.899 Other long term (current) drug therapy; Z79.01 Long term (current) use of anticoagulants
CPT/HCPCS: 36415; 71045; 80053; 81001; 83605; 84484; 85025; 85610; 85730; 86140; 87637; 87651; 93005; 96360; 99284; J7120

== ENCOUNTER 2024-06-01 08:17 | Outpatient (CLI) | payer MEDICARE, SELFPAY ==
[2024-06-01 08:38] LABS: Basophils Absolute Auto 0.03 K/mm3 (0.00-0.10); Basophils Percent Auto 0.4 % (0.0-1.0); Eosinophils Absolute Auto 0.18 K/mm3 (0.02-0.50); Eosinophils Percent Auto 2.2 % (1.0-6.0); Hematocrit 39.8 % (37.0-46.0); Hemoglobin 13.2 g/dL (12.4-15.3); Immature Granulocyte Absolute 0.05 K/mm3 (0.00-0.00); Immature Granulocyte Percent A 0.6 % (0.0-0.0); Immature Platelet Fraction Pct 2.5 % (1.0-7.0); Lymphocytes Absolute Auto 2.11 K/mm3 (1.10-4.50); Lymphocytes Percent Auto 25.8 % (18.0-42.0); Mean Corpuscular HGB Conc 33.2 g/dL (32-36); Mean Corpuscular Hemoglobin 31.1 pg (27.0-31.0); Mean Corpuscular Volume 93.6 fL (78.0-102.0); Mean Platelet Volume 9.5 fl (8.7-11.0); Monocytes Absolute Auto 0.75 K/mm3 (0.10-0.90); Monocytes Percent Auto 9.2 % (2.0-11.0); Neutrophils Absolute Auto 5.07 K/mm3 (1.70-7.20); Neutrophils Percent Auto 61.8 % (50.0-70.0); Platelet Count Result 86 K/mm3 (150-420); Red Blood Count 4.25 M/mm3 (4.70-6.10); Red Cell Distribution Width 14.5 % (11.6-14.4); White Blood Count 8.2 K/mm3 (4.8-10.8)
[2024-06-01 08:52] LABS: INR 2.3; Prothrombin Time 23.7 Seconds (9.50-12.1)
[2024-06-01 08:54] LABS: Add Urine Microscopic? NO; Appearance Urine Clear (Clear); Bilirubin Urine Negative (Negative); Blood Urine Negative (Negative); Color Urine Light Yellow (Yellow); Glucose Urine UA Negative (Negative); Hemoglobin A1C 5.4 % (<5.7); Ketones Urine Negative (Negative); Leukocyte Esterase Ur Negative LEU/UL (Negative); Nitrate Urine Negative (Negative); Protein Urine Negative (Negative); Specific Grav Ur <= 1.005 (1.010-1.020); Urobilinogen Urine 0.2 mg/dL (0.2-1.0)
[2024-06-01 09:22] LABS: Alanine Aminotransferase 18 U/L (16-63); Albumin Level 3.5 g/dL (3.4-5.0); Alkaline Phosphatase 97 U/L (46-116); Anion Gap 6 mmol/L (4-12); Aspartate Amino Transferase 20 U/L (15-37); Bilirubin,Total 0.6 mg/dL (0.00-1.00); Blood Urea Nitrogen 19 mg/dL (7-18); Calcium 8.9 mg/dL (8.5-10.1); Carbon Dioxide 30 mmol/L (21-32); Chloride 103 mmol/L (98-108); Estimated Glomerular Filt Rate 56; Ferritin 174 ng/mL (26-388); Glucose 99 mg/dL (70-99); Iron 68 ug/dL (65-175); Osmolality Calculated 290 mOsm/kg (285-295); Potassium 4.3 mmol/L (3.5-5.1); Sodium 139 mmol/L (136-145); Total Protein 6.8 g/dL (6.4-8.2)
== END 2024-06-01 08:18 | disposition home or self-care (01) ==
LOC: CHSLAB 08:19
PROVIDERS: PCP Internal Medicine; Visit Provider Internal Medicine
DX: D69.6 Thrombocytopenia, unspecified (principal); Z79.01 Long term (current) use of anticoagulants; R73.01 Impaired fasting glucose; I10 Essential (primary) hypertension; D50.9 Iron deficiency anemia, unspecified
CPT/HCPCS: 36415; 80053; 81003; 82728; 83036; 83540; 85025; 85055; 85610

== ENCOUNTER 2024-09-02 12:26 | Outpatient (RCR) | payer MEDICARE, SELFPAY ==
[2024-06-30 08:52] LABS: Partial Thromboplastin Time 39.1 Sec (23.9-30.70); Prothrombin Time 29.7 Seconds (9.50-12.1)
[2024-07-26 10:19] LABS: INR 4.8; Partial Thromboplastin Time 46.1 Sec (23.9-30.70); Prothrombin Time 45.4 Seconds (9.50-12.1)
[2024-08-03 09:27] LABS: INR 2.6; Partial Thromboplastin Time 37.8 Sec (23.9-30.70); Prothrombin Time 26.4 Seconds (9.50-12.1)
[2024-09-02 13:06] LABS: INR 1.9; Partial Thromboplastin Time 34.6 Sec (23.9-30.70)
== END 2024-09-28 23:59 | disposition home or self-care (01) ==
LOC: CHSLAB 12:26
PROVIDERS: PCP Internal Medicine; Visit Provider Internal Medicine
DX: Z51.81 Encounter for therapeutic drug level monitoring (principal); Z79.01 Long term (current) use of anticoagulants; D69.6 Thrombocytopenia, unspecified
CPT/HCPCS: 36415; 85610; 85730

== ENCOUNTER 2024-10-04 08:36 | Outpatient (RCR) | payer MEDICARE, SELFPAY ==
[2024-10-04 09:05] LABS: INR 2.3; Partial Thromboplastin Time 37.5 Sec (23.9-30.70); Prothrombin Time 23.6 Seconds (9.50-12.1)
== END 2025-01-02 23:59 | disposition home or self-care (01) ==
LOC: CHSLAB 08:36
PROVIDERS: PCP Internal Medicine; Visit Provider Internal Medicine
DX: Z51.81 Encounter for therapeutic drug level monitoring (principal); D69.6 Thrombocytopenia, unspecified; Z79.01 Long term (current) use of anticoagulants
CPT/HCPCS: 36415; 85610; 85730

== ENCOUNTER 2024-11-01 08:36 | Outpatient (CLI) | payer MEDICARE, SELFPAY ==
--- OUTSIDE RECORDS SUMMARY | 2024-11-01 08:52 | XMS_ITS | Clinical Summary ---
Author Organization [facility] Address [address] [place] [address] Care Team Providers Care Tire Buffer Name Role Phone Ramo Dale MD Primary Care Provider Allergies No known active allergies Medications simvastatin (ZOCOR) 20 mg tablet take 1 tablet by oral route every day in the evening 0 0 02/27/20 15 Active finasteride (PROSCAR) 5 mg tablet take 1 tablet by oral route every day 0 0 02/27/20 15 Active timolol (BETIMOL) 0.5 % ophthalmic solution instill 1 drop by ophthalmic route every day into affected eye(s) 0 0 02/27/20 15 Active brimonidine (ALPHAGAN) 0.2 % ophthalmic solution instill 1 drop by ophthalmic route every 8 hours into affected eye(s) 0 0 01/23/20 16 Active warfarin (COUMADIN) 1 mg tabletIndications: Ischemic Stroke Take 4.5 tablets (4.5 mg total) by mouth daily Active warfarin (COUMADIN) 4 mg tablet TAKE 1 TABLET BY MOUTH DAILY. COMBINE WITH 1/2 TABLET OF 1MG TO MAKE 4.5 MG DAILY. 10/27/19 20 Active losartan (COZAAR) 25 mg tabletIndications: Dilated cardiomyopathy (HCC),Lightheadedn ess Take 1 tablet (25 mg total) by mouth daily 90 tablet 3 04/04/20 20 Active Additional Information Patient taking differently: 75 mgoral Daily, Reported on 02/18/2023 lamoTRIgine (LaMICtal) 150 mg tablet Take 1 tablet (150 mg total) by mouth daily 10/30/19 21 Active tamsulosin (FLOMAX) 0.4 mg extended release capsule TAKE 1 CAPSULE BY MOUTH ONCE DAILY 1/2 HOUR FOLLOWING THE SAME MEAL EACH DAY 10/29/19 21 Active latanoprost (XALATAN) 0.005 % ophthalmic solution INSTILL 1 DROP INTO RIGHT EYE 1 TIMES DAILY 12/12/19 21 Active amLODIPine (NORVASC) 10 mg tablet Take 1 tablet (10 mg total) by mouth daily 01/16/20 22 Active cyanocobalamin, vitamin B-12, (VITAMIN B-12 ORAL) Take by mouth Active ketoconazole (NIZORAL) 2 % cream Apply topically 2 (two) times a day APPLY TO AFFECTED AREA 02/16/20 24 Active Active Problems Problem Noted Date Diagnosed Date ARVIZU (dyspnea on exertion) 02/18/2023 Dizzy spells 04/04/2020 Dilated cardiomyopathy 09/28/2019 Assessment & Plan (11/15/2019 1:40 PM CDT): Mild. Would not recommend [employer]. I spent a total of 30Face to Face minutes of which more than 50% of the time was spent in counseling and coordination of care. This time included: Discussion of [employer]. Risk. Indications for CHF and EF less than 30% with mild symptoms in less than 40 for moderate symptoms. In addition no good studies with patients in his age group showing benefit. Would not recommend [employer] at this time. 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 Better life less than 6 months. Excellent lead function. With ventricular thresholds less than 0.5 volts. Discussed need for generator change likely later this year. But not now. May have done here be will follow fall probably follow-up in [place] to do this. Chronic anticoagulation 09/28/2019 H/O: stroke 08/25/2018 Idiopathic thrombocytopenic purpura 03/26/2017 History of TIAs 02/03/2017 Primary open angle glaucoma (POAG) 11/30/2016 Posterior corneal pigmentation 04/28/2016 Pseudophakia 04/28/2016 History of cerebrovascular disease 01/23/2016 Overview (11/20/2016): H/O TIA (transient ischemic attack) and stroke Obesity with body mass index 30 or greater 01/22 Overview (11/20/2016): Obesity (BMI 30-39.9) Pure hypercholesterolemia 01/23/2016 Overview (11/20/2016): Pure hypercholesterolemia Complete atrioventricular block 02/27/2014 Overview (11/20/2016): CHB (complete heart block) Pacemaker 02/27/2014 Overview (03/01/2020): [employer] Dual Pacemaker. Dx; Second Degree Hb. Gen change 03/01/2020-[employer], chronic leads 05/31/2010. Latitude remote monitoring. Impaired glucose tolerance 02/27/2014 Overview (11/20/2016): Glucose intolerance (impaired glucose tolerance) Adiposity 02/27/2014 Overview (11/20/2016): Obesity Resolved Problems Problem Noted Date Diagnosed Date Resolved Date Longstanding persistent atrial fibrillation 04/04/2020 04/04/2020 Meibomian gland dysfunction (MGD) 04/28/2016 04/04/2020 Thrombocytopenia 01/23/2016 09/28/2019 Overview (11/20/2016): Thrombocytopenia Hyperlipidemia 02/27/2014 02/16/2018 Overview (11/20/2016): Hyperlipidemia Encounters Date Type Department Care Team Description 10/12/2024 8:15 AM PAID INTERN Ancillary Procedure [facility] [address] [place] [id number] Complete atrioventricular block (HCC); Dilated cardiomyopathy (HCC) from Last 3 Months Surgical History Surgery Date Site/Laterality Comments CRANIECTOMY FOR EXCISION OF ACOUSTIC NEUROMA Medical History Medical History Date Comments Hx Other Medical 2013 pneumonia; Comm ents: ELU 02/27/2014 - Hx Other Medical TIA; Comments: ELU 02/27/2014 - Seizure disorder (HCC) Seizure d isorder Family History Medical History Relation Name Comments Cancer Father Heart disease Mother Relation Name Status Comments Father pancreatic or g all bladder duct cancer Mother VAlve replaceme nt Social History Tobacco Use Types Packs/Day Years Used Date Smoking Tobacco: Former Smokeless Tobacco: Never Tobacco Cessation:Counseling Given: Not Answered Alcohol Use Standard Drinks/Week Comments No 0 (1 standard drink = 0.6 oz pur e alcohol) Personal Safety Answer Date Recorded Getting School Help Needed Not on file 08/16 Sex and Gender Information Value Date Recorded Sex Assigned at Not on file Legal Sex Male 1:15 AM PAID INTERN Gender Identity Not on file Sexual Orientation Not on file Obstetrics History Last Filed Vital Signs Vital Sign Reading Time Taken Comments Blood Pressure 140/76 04/13/2024 10:52 AM CDT Pulse 65 04/13/2024 10:52 AM CDT Temperature - - Respiratory Rate - - Oxygen Saturation 98% 04/13/2024 10:52 AM CDT Inhaled Oxygen Concentration - - Weight 89.4 kg (197 lb) 04/13/2024 10:52 AM CDT Height 177.8 cm (5' 10 ) 04/13/2024 10:52 AM CDT Body Mass Index 28.27 04/13/2024 10:52 AM CDT Plan of Treatment Health Maintenance Due Date Last Done Comments Depression Screening 1940 Fall Risk Assessment 1940 Hepatitis B Screening 1957 Zoster Vaccine (1 of 2) 1989 Well Visit 65+ 2004 Influenza Vaccine (#1) 2024 9, 05/18/2018, 06/08/2017, Additional history exists DTaP/Tdap/Td Vaccine (2 - Td or Tdap) 10/06/2033 10/06/2023 Pneumococcal vaccine 65+ Completed 02/21/2016, 08/17 Medical Devices Implanted Type Area Material Handling Crew Supervisor Device Identifier Shelf Expiration Date Model / Serial / Lot Pacemaker-05/17 Implanted:05/17 (Quantity not on file) Pacemaker [employer] Second Degree HB [id number] / [id number] / Procedures Procedure Name Priority Date/Time Associated Diagnosis Comments DEVICE CHECK - REMOTE Routine 10/13/2024 1:41 PM PAID INTERN Complete atrioventricular block (HCC) Dilated cardiomyopathy (HCC) from Last 3 Months Results * DEVICE CHECK - REMOTE (10/13/2024 1:41 PM PAID INTERN) Anatomical Region Laterality Modality Other Narrative 10/14/2024 2:23 PM PAID INTERN [employer] Dual Pacemaker. Dx; Second Degree Hb. Gen change 03/01/2020-[employer], chronic leads 05/31/2010. Latitude remote monitoring. Routine DDD Pacemaker remote. Normal device function. Battery function-Ok, 3.5 years remaining battery life to NASH. Appropriate lead measurements noted. Presenting rhythm: -PATIENT SERVICES REP. AP-23%, PATIENT SERVICES REP-100%. 35 Atrial high rate episodes noted, iegm's Atach. No ventricular high rate episodes noted. Medications; Coumadin, Cozaar, Norvasc. See scanned report. Office device f/u and ROV with Dr De Leon scheduled 04/26/2025. Latitude remote f/u 01/11/2025. Danelle Perez RN Jake De Leon MD [facility] CARDIAC SERVICES PROCEDURES F inal Result from Last 3 Months Insurance MEDICARE [facility] MEDICARE SUPPLEMENT MEDICARE Care Teams Tire Buffer Relationship Specialty Start Date End Date Ramo Dale MD [address] [place] [address] PCP - General 06/03/10
--- OUTSIDE RECORDS SUMMARY | 2024-11-01 08:52 | XMS_ITS | Referral Summary ---
Author Organization [facility] Address [address] [place] [address] Care Team Providers Care Board Stacker Name Role Phone Ramo Dale MD Primary Care Provider [phone] Encounters Date Type Department Care Team Description 10/12/2024 8:15 AM CLIENT STRATEGIST Ancillary Procedure [facility] Medical [facility] Cardiology [address] [place] [id number] Complete atrioventricular block (HCC); Dilated cardiomyopathy (HCC) from Last 3 Months Allergies No known active allergies Medications simvastatin [...] 1:40 PM CDT): Mild. Would not recommend COTTON SAMPLER. I spent a total of 30Face to Face minutes of which more than 50% of the time was spent in counseling and coordination of care. This time included: Discussion of COTTON SAMPLER. Risk. Indications for CHF and EF less than 30% with mild symptoms in less than 40 for moderate symptoms. In addition no good studies with patients in his age group showing benefit. Would not recommend COTTON SAMPLER at this time. 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 Better life less than 6 months. Excellent lead function. With ventricular thresholds less than 0.5 volts. Discussed need for generator change likely later this year. But not now. May have done here be will follow fall probably follow-up in [place] to do this. Chronic anticoagulation 09/28/2019 H/O: [...] (complete heart block) Pacemaker 02/27/2014 Overview (03/01/2020): [employer] Dual Pacemaker. Dx; Second Degree Hb. [...] Thrombocytopenia Hyperlipidemia 02/27/2014 02/16/2018 Overview (11/20/2016): Hyperlipidemia Social History Tobacco Use Types Packs/Day Years [...] on file Legal Sex Male 1:15 AM CLIENT STRATEGIST Gender Identity Not on file Sexual Orientation Not on file Last Filed Vital Signs Vital Sign Reading [...] 04/13/2024 10:52 AM CDT Plan of Treatment Not on file Medical Devices Implanted Type Area Director Of Application Development Device Identifier Shelf Expiration Date Model / Serial / Lot Pacemaker-05/17 Implanted:05/17 (Quantity not on file) Pacemaker Chest Yipit Second Degree HB ALTRUA [id number] / [id number] / Procedures Procedure Name Priority Date/Time Associated Diagnosis Comments DEVICE CHECK - REMOTE Routine 10/13/2024 1:41 PM CLIENT STRATEGIST Complete atrioventricular block (HCC) Dilated cardiomyopathy (HCC) from Last 3 Months Results * DEVICE CHECK - REMOTE (10/13/2024 1:41 PM CLIENT STRATEGIST) Anatomical Region Laterality Modality Other Narrative 10/14/2024 2:23 PM CLIENT STRATEGIST [employer] Dual Pacemaker. Dx; Second Degree Hb. Gen change 03/01/2020-[facility], chronic leads 05/31/2010. Lat[employer] remote monitoring. Routine DDD Pacemaker remote. Normal device function. Battery function-Ok, 3.5 years remaining battery life to NASH. Appropriate lead measurements noted. Presenting rhythm: -SUPERVISOR INSPECTION DEPARTMENT. AP-23%, SUPERVISOR INSPECTION DEPARTMENT-100%. 35 Atrial high rate episodes noted, iegm's Atach. No ventricular high rate episodes noted. Medications; Coumadin, Cozaar, Norvasc. See scanned report. Office device f/u and ROV with Dr De Leon scheduled 04/26/2025. [employer] remote f/u 01/11/2025. Danelle Perez, BEE Jake De Leon MD CV CARDIAC SERVICES PROCEDURES F inal Result from Last 3 Months Insurance BLUE CROSS MEDICARE SUPPLEMENT MEDICARE Care Teams Board Stacker Relationship Specialty Start Date End Date Ramo Dale MD [address] [place] [address] PCP - General 06/03/10
--- OUTSIDE RECORDS SUMMARY | 2024-11-01 08:52 | XMS_ITS | Encounter Summary ---
Author Organization [facility] Address [facility] [place] [address] Care Team Providers Care Senior Designer/Art Director Name Role Phone Ramo Dale MD Primary Care Provider [phone] Encounter Details Date Type Department Care Team (Late st Contact Info) Description 10/31/2017 Abstract [facility] CONVERSION [address] [place] [address] , Generic Conversion, Social History Tobacco Use Types Packs/Day Years Used Date Smoking Tobacco: Never Assessed Sex and Gender Information Value Date Recorded Sex Assigned at Not on file Legal Sex Male 9:18 PM CDT Gender Identity Not on file Sexual Orientation Not on file documented as of this encounter Plan of Treatment Not on file documented as of this encounter Visit Diagnoses Not on filedocumented in this encounter Care Teams Senior Designer/Art Director Relationship Specialty Start Date End Date Ramo Dale MD [address] [place] [address] PCP - General INTERNAL MEDICINE 12/10/18 documented as of this encounter
--- OUTSIDE RECORDS SUMMARY | 2024-11-01 08:52 | XMS_ITS | Clinical Summary ---
Author Organization [facility] Address [address] [place] [address] Care Team Providers Care Vat Skimmer Name Role Phone Ramo Dale MD Primary Care Provider [phone] Allergies No known active allergies Medications Cyanocobalamin (VITAMIN B-12) 500 MCG Lozenge Take 500 mcg by mouth daily. Active amLODIPine (NORVASC) 10 MG tablet Take 1 tablet (10 mg total) by mouth daily. 09/24/2023 Active brimonidine (ALPHAGAN) 0.2 % ophthalmic solution Place 1 drop into both eyes 2 (two) times a day. 09/03/2023 Active fluticasone propionate (FLONASE) 50 MCG/ACT nasal spray 1 spray by Each Nostril route daily. 09/30/2023 Active lamoTRIgine (LAMICTAL) 150 MG tablet Take 1 tablet (150 mg total) by mouth 2 (two) times daily. 07/12/2023 Active latanoprost (XALATAN) 0.005 % ophthalmic solution Place 1 drop into both eyes nightly at bedtime. 09/12/2023 Active losartan (COZAAR) 25 MG tablet Take 3 tablets (75 mg total) by mouth daily. 03/25/2023 Active simvastatin (ZOCOR) 20 MG tablet Take 1 tablet (20 mg total) by mouth nightly at bedtime. 07/14/2023 Active tamsulosin (FLOMAX) 0.4 MG Cap Take 1 capsule (0.4 mg total) by mouth daily. 08/07/2023 Active timolol (TIMOPTIC) 0.5 % ophthalmic solution Place 1 drop into the right eye 2 (two) times daily. 07/22/2023 Active dutasteride (AVODART) 0.5 MG capsule Take 1 capsule (0.5 mg total) by mouth daily. 30 capsule 10/14/2023 Active Active Problems Problem Noted Date Diagnosed Date fall10/06/2023 SDH (subdural hematoma) 10/06/2023 Subdural hematoma 10/06/2023 Immunizations Name Administration Dates Next Due Tdap (Boostrix) 10/06/2023 Social History Tobacco Use Types Packs/Day Years Used Date Smoking Tobacco: Unknown Passive Smoke Exposure: Never Smokeless Tobacco: Never Tobacco Cessation:Counseling Given: No Alcohol Use Standard Drinks/Week Comments Never 0 (1 standard drink = 0.6 oz pur e alcohol) [facility] Utilities Answer Date Recorded In the past 12 months has e [employer], gas, oil, or water [employer] threatened to shut off services in your home? No 10/06/2023 Humiliation, Afraid, Rape, and Kick questionnair e Answer Date Recorded Within the last year, have y ou been afraid of your partner or ex-partner? No 10/06/2023 Within the last year, have y ou been humiliated or emotionally abused in other ways by your partner or ex-partner? No Within the last year, have y ou been kicked, hit, slapped, or otherwise physically hurt by your partner or ex-partner? No 10/06/2023 Within the last year, have y ou been raped or forced to have any kind of sexual activity by your partner or ex-partner? No 10/06/2023 Social Connection and Isolat ion Panel [NHANES] Answer Date Recorded In a typical week, how many times do you talk on the phone with family, friends, or neighbors? More than three times a week 10/06/2023 How often do you get togethe r with friends or relatives? More than three times a week 10/06/2023 How often do you attend chur ch or holiness services? Never 10/06/2023 Do you belong to any clubs o r organizations such as restorationism groups, unions, fraternal or athletic groups, or school groups? No 10/06/2023 How often do you attend meet ings of the clubs or organizations you belong to? Never 10/06/2023 Are you , , di vorced, , never , or living with a partner? Patient declined 10/06/2023 AUDIT-C Answer Date Recorded Q1: How often do you have a drink containing alcohol? Never 10/06/2023 Q2: How many drinks containi ng alcohol do you have on a typical day when you are drinking? Patient does not drink Q3: How often do you have si x or more drinks on one occasion? Never 10/06/2023 Overall Financial Resource Strain (CARDIA) Answe r Date Recorded How hard is it for you to pa y for the very basics like food, housing, medical care, and heating? Not very hard 10/06/2023 [facility] of Occupat ional [facility] - Occupational Stress Questionnaire Answer Date Recorded Do you feel stress - tense, restless, nervous, or anxious, or unable to sleep at night because your mind is troubled all the time - these days? To some extent 10/06/2023 Exercise Vital Sign Answer Date Recorde d On average, how many days pe r week do you engage in moderate to strenuous exercise (like a brisk walk)? Patient declined On average, how many minutes do you engage in exercise at this level? Patient declined 10/06/2023 Hunger Vital Sign Answer Date Recorded Within the past 12 months, y ou worried that your food would run out before you got the money to buy more. Never true 10/06/19 24 Within the past 12 months, t he food you bought just didn't last and you didn't have money to get more. Never true 10/06/2023 PRAPARE - Transportation Answer Date Re corded In the past 12 months, has l ack of transportation kept you from medical appointments or from getting medications? No 09/18 In the past 12 months, has l ack of transportation kept you from meetings, work, or from getting things needed for daily living? No 10/06/2023 Housing Stability Vital Sign Answer Abner e Recorded In the last 12 months, was t here a time when you were not able to pay the mortgage or rent on time? No 10/06/2023 In the last 12 months, how many places have you lived? 1 10/06/2023 In the last 12 months, was t here a time when you did not have a steady place to sleep or slept in a custodial (including now)? No 10/06/2023 Sex and Gender Information Value Date Recorded Sex Assigned at Not on file Legal Sex Male 9:18 PM CDT Gender Identity Not on file Sexual Orientation Not on file Last Filed Vital Signs Vital Sign Reading Time Taken Comments Blood Pressure 114/67 10/13/2023 11:45 AM MANAGER BUSINESS INTELLIGENCE Pulse 81 10/13/2023 11:45 AM MANAGER BUSINESS INTELLIGENCE Temperature 36.9 C (98.4 F) 10/13/2023 7:55 AM MANAGER BUSINESS INTELLIGENCE Respiratory Rate 18 10/12/2023 2:06 PM MANAGER BUSINESS INTELLIGENCE Oxygen Saturation 97% 10/13/2023 11:45 AM MANAGER BUSINESS INTELLIGENCE Inhaled Oxygen Concentration - - Weight 99.5 kg (219 lb 5.7 oz) 10/08/2023 4:33 A M MANAGER BUSINESS INTELLIGENCE Height 185.4 cm (6' 1 ) 10/06/2023 9:59 AM MANAGER BUSINESS INTELLIGENCE Body Mass Index 28.94 10/06/2023 9:59 AM MANAGER BUSINESS INTELLIGENCE Plan of Treatment Health Maintenance Due Date Last Done Comments Annual Medicare Wellness Visit 2004 COVID-19 Vaccine ( season) 2024 05/24/2023, 04/28/2022, 11/30/2021, Additional history exists Influenza Adult (#1) 2024 04/24/2022, 04/24/2021, 05/04/2020, Additional history exists DTaP, Tdap and Td Vaccines (3 - Td or Tdap) 10/06/2033 10/06/2023, 09/30/2019 Pneumococcal Vaccine: 65+ Years Completed 02/21/2016, 08/31/2014 RSV Immunization or 60+ Years Completed 06/07/2023 Zoster Vaccines Completed 07/12/2023, 05/03/2023 Meningococcal B Vaccine Aged Out No l onger eligible based on patient's age to complete this topic Meningococcal Vaccine Aged Out No linus brenda eligible based on patient's age to complete this topic RSV Immunizations Under 20 Months Aged Out No longer eligible based on patient's age to complete this topic Goals Goal Patient Goal Type Associated Problems Recent Progress Patient-Stated? Author Family Patient and family will have open conversation regarding patient goals and wishes for treatment Lifestyle No Sylvie Pruitt, RN Medical Devices Implanted Type Area Pasting Inspector Device Identifier Shelf Expiration Date Model / Serial / Lot Ra Lead- 0 Implanted:Qty: 1 on 05/31/2010 Lead Implant Right: Atrium [employer] [id number] / [id number] / Description:LEAD IS NOT MR C ONDITIONAL Rv Lead- 0 Implanted:Qty: 1 on 05/31/2010 Lead Implant Right: Ventricle [employer] [id number] / [id number] / Description:LEAD IS NOT MR C ONDITIONAL Pacemaker-03/01 Implanted:Qty: 1 on 03/01/2020 Pacemaker [employer] [id number] / [id number] / Description:DEVICE IS NOT MR CONDITIONAL ( LEADS ARE NOT MR CONDITIONAL) Insurance MEDICARE [employer] MEDICARE BLUE CROSS BLUE SHIELD BLUE CROSS BLUE SHIELD Advance Directives * Full Code (Latest Code Status on File) Date Activated Date Inactivated Comments 10/06/2023 5:32 PM 10/13/2023 3:33 PM * Full Code Date Activated Date Inactivated Comments 10/06/2023 5:32 PM 10/06/2023 5:32 PM Care Teams Vat Skimmer Relationship Specialty Start Date End Date Ramo Dale MD [address] [place] [address] PCP - General INTERNAL MEDICINE 12/10/18
[2024-11-01 09:19] LABS: Basophils Absolute Auto 0.03 K/mm3 (0.00-0.10); Basophils Percent Auto 0.3 % (0.0-1.0); Eosinophils Absolute Auto 0.18 K/mm3 (0.02-0.50); Eosinophils Percent Auto 2.1 % (1.0-6.0); Hemoglobin 14.1 g/dL (12.4-15.3); Immature Granulocyte Absolute 0.04 K/mm3 (0.00-0.00); Immature Granulocyte Percent A 0.5 % (0.0-0.0); Immature Platelet Fraction Pct 2.3 % (1.0-7.0); Lymphocytes Absolute Auto 1.81 K/mm3 (1.10-4.50); Lymphocytes Percent Auto 20.6 % (18.0-42.0); Mean Corpuscular Hemoglobin 30.7 pg (27.0-31.0); Mean Corpuscular Volume 95.9 fL (78.0-102.0); Mean Platelet Volume 9.7 fl (8.7-11.0); Monocytes Percent Auto 9.1 % (2.0-11.0); Neutrophils Absolute Auto 5.91 K/mm3 (1.70-7.20); Neutrophils Percent Auto 67.4 % (50.0-70.0); Platelet Count Result 80 K/mm3 (150-420); Red Blood Count 4.59 M/mm3 (4.70-6.10); Red Cell Distribution Width 13.8 % (11.6-14.4); White Blood Count 8.8 K/mm3 (4.8-10.8)
[2024-11-01 09:28] LABS: Add Urine Microscopic? YES; Appearance Urine Clear (Clear); Bilirubin Urine Negative (Negative); Blood Urine Negative (Negative); Color Urine Light Yellow (Yellow); Glucose Urine UA Negative (Negative); Ketones Urine Negative (Negative); Leukocyte Esterase Ur 2+ LEU/UL (Negative); Nitrate Urine Positive (Negative); Protein Urine Negative (Negative); Urobilinogen Urine 0.2 mg/dL (0.2-1.0); pH Urine 6.5 (5.0-8.0)
[2024-11-01 09:39] LABS: Bacteria Urine Trace /hpf; RBC Urine None seen /hpf (0-2); WBC Urine 16-20 /hpf (0-3)
[2024-11-01 09:53] LABS: Alanine Aminotransferase 40 U/L (16-63); Albumin Level 3.8 g/dL (3.4-5.0); Alkaline Phosphatase 114 U/L (46-116); Anion Gap 7 mmol/L (4-12); Aspartate Amino Transferase 23 U/L (15-37); Bilirubin,Total 0.4 mg/dL (0.00-1.00); Blood Urea Nitrogen 24 mg/dL (7-18); Calcium 8.8 mg/dL (8.5-10.1); Carbon Dioxide 28 mmol/L (21-32); Chloride 107 mmol/L (98-108); Cholesterol 160 mg/dL (0-200); Creatine Kinase 80 U/L (39-308); Estimated Glomerular Filt Rate 48; Glucose 109 mg/dL (70-99); HDL Direct 49 mg/dL (40-60); LDL Cholesterol Calculated 93 mg/dL (<130); Osmolality Calculated 299 mOsm/kg (285-295); Potassium 4.8 mmol/L (3.5-5.1); Sodium 142 mmol/L (136-145); Total Protein 7.2 g/dL (6.4-8.2); Triglycerides 88 mg/dL (0-150)
[2024-11-01 10:03] LABS: Hemoglobin A1C 5.6 % (<5.7)
[2024-11-01 10:29] LABS: INR 2.4; Partial Thromboplastin Time 38.7 Sec (23.9-30.70); Prothrombin Time 24.6 Seconds (9.50-12.1)
== END 2024-11-01 08:37 | disposition home or self-care (01) ==
PROVIDERS: PCP Internal Medicine; Visit Provider Internal Medicine
DX: N39.0 Urinary tract infection, site not specified (principal); Z79.01 Long term (current) use of anticoagulants; R73.01 Impaired fasting glucose; E78.2 Mixed hyperlipidemia
CPT/HCPCS: 36415; 80053; 80061; 81001; 82550; 83036; 85025; 85055; 85610; 85730; 87086

== ENCOUNTER 2024-11-29 08:32 | Outpatient (CLI) | payer MEDICARE, SELFPAY ==
--- OUTSIDE RECORDS SUMMARY | 2024-11-29 08:49 | XMS_ITS | Encounter Summary ---
Author Organization [facility] Address [facility] [place] [address] Care Team Providers Care Intensive Care Unit Registered Nurse Name Role Phone Ramo Dale MD Primary Care Provider [phone] Encounter Details Date Type Department Care Team (Late st Contact Info) Description 10/31/2017 Abstract [facility] CONVERSION [address] [place] [address] , Generic Conversion, Social History Tobacco Use [...] on filedocumented in this encounter Care Teams Intensive Care Unit Registered Nurse Relationship Specialty Start Date End Date Ramo Dale MD [address] [place] [address] PCP - General INTERNAL MEDICINE 12/10/18 documented as of this encounter
--- OUTSIDE RECORDS SUMMARY | 2024-11-29 08:49 | XMS_ITS | Clinical Summary ---
Author Organization [facility] Address [address] [place] [address] Care Team Providers Care Electro Mechanical Designer Name Role Phone Ramo Dale MD Primary Care Provider [phone] Allergies No known active allergies Medications Cyanocobalamin [...] (subdural hematoma) 10/06/2023 Subdural hematoma 10/06/2023 Immunizations Immunization Administration Dates Next Due Tdap (Boostrix) 10/06/2023 Social History Tobacco Use Types Packs/Day Years Used Date Smoking Tobacco: Unknown Passive Smoke Exposure: Never Smokeless Tobacco: Never Tobacco Cessation:Counseling Given: No Alcohol Use Standard Drinks/Week Comments Never 0 (1 standard drink = 0.6 oz pur e alcohol) [facility] Utilities Answer Date Recorded In the past 12 months has e [employer], gas, oil, or water [employer] threatened to shut off services in your [...] often do you attend chur ch or hinduism services? Never 10/06/2023 Do you belong to any clubs o r organizations such as quaker groups, unions, fraternal or athletic groups, or [...] care, and heating? Not very hard 10/06/2023 [facility] of Occupat ional [facility] - Occupational Stress Questionnaire Answer Date Recorded [...] place to sleep or slept in a long-term (including now)? No 10/06/2023 Sex and Gender Information Value Date Recorded Sex Assigned at Not on file Legal Sex Male 9:18 PM CDT Gender Identity Not on file Sexual Orientation Not on file Last Filed Vital Signs Vital Sign Reading Time Taken Comments Blood Pressure 114/67 10/13/2023 11:45 AM BARREL LATHE OPERATOR OUTSIDE Pulse 81 10/13/2023 11:45 AM BARREL LATHE OPERATOR OUTSIDE Temperature 36.9 C (98.4 F) 10/13/2023 7:55 AM BARREL LATHE OPERATOR OUTSIDE Respiratory Rate 18 10/12/2023 2:06 PM BARREL LATHE OPERATOR OUTSIDE Oxygen Saturation 97% 10/13/2023 11:45 AM BARREL LATHE OPERATOR OUTSIDE Inhaled Oxygen Concentration - - Weight 99.5 kg (219 lb 5.7 oz) 10/08/2023 4:33 A M BARREL LATHE OPERATOR OUTSIDE Height 185.4 cm (6' 1 ) 10/06/2023 9:59 AM BARREL LATHE OPERATOR OUTSIDE Body Mass Index 28.94 10/06/2023 9:59 AM BARREL LATHE OPERATOR OUTSIDE Plan of Treatment Health Maintenance Due Date Last Done Comments Annual Medicare Wellness Visit 2004 COVID-19 Vaccine ( season) 2024 05/24/2023, 04/28/2022, 11/30/2021, Additional history exists DTaP, Tdap and Td Vaccines (3 - Td or Tdap) 10/06/2033 10/06/2023, 09/30/2019 Pneumococcal Vaccine: 50+ Years Completed 02/21/2016, 08/31/2014 RSV Immunization or [...] and wishes for treatment Lifestyle No Sylvie Pruitt RN Medical Devices Implanted Type Area Electrical Repairer Device Identifier Shelf Expiration Date Model / Serial / Lot Ra Lead- 0 Implanted:Qty: 1 on 05/31/2010 Lead Implant Right: [employer]rium [employer] [id number] / [id number] / Description:LEAD IS NOT MR C ONDITIONAL Rv Lead- 0 Implanted:Qty: 1 on 05/31/2010 Lead Implant Right: Ventricle [employer] [id number] / [id number] / Description:LEAD IS NOT MR C ONDITIONAL Pacemaker-03/01 Implanted:Qty: 1 on 03/01/2020 Pacemaker [employer] [id number] / [id number] / Description:DEVICE IS NOT MR CONDITIONAL ( LEADS ARE NOT MR CONDITIONAL) Insurance MEDICARE [facility] MEDICARE BLUE CROSS BLUE SHIELD BLUE CROSS BLUE SHIELD Advance Directives * Full Code (Latest Code Status on File) Date Activated Date Inactivated Comments 10/06/2023 5:32 PM 10/13/2023 3:33 PM * Full Code Date Activated Date Inactivated Comments 10/06/2023 5:32 PM 10/06/2023 5:32 PM Care Teams Electro Mechanical Designer Relationship Specialty Start Date End Date Ramo Dale MD [address] [place] [address] PCP - General INTERNAL MEDICINE 12/10/18
--- OUTSIDE RECORDS SUMMARY | 2024-11-29 08:49 | XMS_ITS | Clinical Summary ---
Author Organization [facility] Address [address] [place] [address] Care Team Providers Care Credit Report Checker Name Role Phone Ramo Dale MD Primary [...] 1:40 PM CDT): Mild. Would not recommend HEALTH SPECIALIST. I spent a total of 30Face to Face minutes of which more than 50% of the time was spent in counseling and coordination of care. This time included: Discussion of HEALTH SPECIALIST. Risk. Indications for CHF and EF less than 30% with mild symptoms in less than 40 for moderate symptoms. In addition no good studies with patients in his age group showing benefit. Would not recommend HEALTH SPECIALIST at this time. 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 Better life less than 6 months. Excellent lead function. With ventricular thresholds less than 0.5 volts. Discussed need for generator change likely later this year. But not now. May have done here be will follow fall probably follow-up in [place] to do this. Chronic anticoagulation 09/28/2019 H/O: [...] (complete heart block) Pacemaker 02/27/2014 Overview (03/01/2020): [employer] Dual Pacemaker. Dx; Second Degree Hb. [...] Department Care Team Description 10/12/2024 8:15 AM ENGINEERING DOCUMENTATION SPECIALIST Ancillary Procedure [facility] Medical Group Cardiology [address] [place] [phone] Complete atrioventricular block (HCC); Dilated cardiomyopathy [...] on file Legal Sex Male 1:15 AM ENGINEERING DOCUMENTATION SPECIALIST Gender Identity Not on file Sexual Orientation [...] 02/21/2016, 08/17 Medical Devices Implanted Type Area Complaint Adjuster Device Identifier Shelf Expiration Date Model / Serial / Lot Pacemaker-05/17 Implanted:05/17 (Quantity not on file) Pacemaker Chest [employer] Second Degree HB [employer]UA [id number] / [id number] / Procedures Procedure Name Priority Date/Time Associated Diagnosis Comments DEVICE CHECK - REMOTE Routine 10/13/2024 1:41 PM ENGINEERING DOCUMENTATION SPECIALIST Complete atrioventricular block (HCC) Dilated cardiomyopathy (HCC) from Last 3 Months Results * DEVICE CHECK - REMOTE (10/13/2024 1:41 PM ENGINEERING DOCUMENTATION SPECIALIST) Anatomical Region Laterality Modality Other Narrative 10/14/2024 2:23 PM ENGINEERING DOCUMENTATION SPECIALIST [employer] Dual Pacemaker. Dx; Second Degree Hb. Gen change 03/01/2020-[employer], chronic leads 05/31/2010. [employer] remote monitoring. Routine DDD Pacemaker remote. Normal device function. Battery function-Ok, 3.5 years remaining battery life to NASH. Appropriate lead measurements noted. Presenting rhythm: -BROOM MAN. AP-23%, BROOM MAN-100%. 35 Atrial high rate episodes noted, iegm's Atach. No ventricular high rate episodes noted. Medications; Coumadin, Cozaar, Norvasc. See scanned report. Office device f/u and ROV with Dr De Leon scheduled 04/26/2025. Latitude remote f/u 01/11/2025. Danelle Perez RN Jake De Leon MD CV CARDIAC SERVICES PROCEDURES F inal Result from Last 3 Months Insurance MEDICARE [facility] MEDICARE SUPPLEMENT MEDICARE Care Teams Credit Report Checker Relationship Specialty Start Date End Date Ramo Dale MD [address] [place] [address] PCP - General 06/03/10
--- OUTSIDE RECORDS SUMMARY | 2024-11-29 08:49 | XMS_ITS | Referral Summary ---
Author Organization [facility] Address [address] [place] [address] Care Team Providers Care Tobacco Sprayer Name Role Phone Ramo Dale MD Primary Care Provider [phone] Encounters Date Type Department Care Team Description 10/12/2024 8:15 AM COTTON FARMWORKER Ancillary Procedure [facility] Medical Group Cardiology [address] [place] [phone] Complete atrioventricular block (HCC); Dilated cardiomyopathy [...] 1:40 PM CDT): Mild. Would not recommend HOTEL ASSISTANT MANAGER. I spent a total of 30Face to Face minutes of which more than 50% of the time was spent in counseling and coordination of care. This time included: Discussion of HOTEL ASSISTANT MANAGER. Risk. Indications for CHF and EF less than 30% with mild symptoms in less than 40 for moderate symptoms. In addition no good studies with patients in his age group showing benefit. Would not recommend HOTEL ASSISTANT MANAGER at this time. 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 Better life less than 6 months. Excellent lead function. With ventricular thresholds less than 0.5 volts. Discussed need for generator change likely later this year. But not now. May have done here be will follow fall probably follow-up in [place] to do this. Chronic anticoagulation 09/28/2019 H/O: [...] (complete heart block) Pacemaker 02/27/2014 Overview (03/01/2020): [place] Sci Dual Pacemaker. Dx; Second Degree Hb. [...] on file Legal Sex Male 1:15 AM COTTON FARMWORKER Gender Identity Not on file Sexual Orientation [...] on file Medical Devices Implanted Type Area Plant Senior Manager Device Identifier Shelf Expiration Date Model / Serial / Lot Pacemaker-05/17 Implanted:05/17 (Quantity not on file) Pacemaker Chest [employer] Systems Second Degree HB ALTRUA [id number] / [id number] / Procedures Procedure Name Priority Date/Time Associated Diagnosis Comments DEVICE CHECK - REMOTE Routine 10/13/2024 1:41 PM COTTON FARMWORKER Complete atrioventricular block (HCC) Dilated cardiomyopathy (HCC) from Last 3 Months Results * DEVICE CHECK - REMOTE (10/13/2024 1:41 PM COTTON FARMWORKER) Anatomical Region Laterality Modality Other Narrative 10/14/2024 2:23 PM COTTON FARMWORKER [place] Keyade Dual Pacemaker. Dx; Second Degree Hb. Gen change 03/01/2020-[facility], chronic leads 05/31/2010. Latitude remote monitoring. Routine DDD Pacemaker remote. Normal device function. Battery function-Ok, 3.5 years remaining battery life to NASH. Appropriate lead measurements noted. Presenting rhythm: -HEALTH CARE LIAISON. AP-23%, HEALTH CARE LIAISON-100%. 35 Atrial high rate episodes noted, iegm's Atach. No ventricular high rate episodes noted. Medications; Coumadin, Cozaar, Norvasc. See scanned report. Office device f/u and ROV with Dr De Leon scheduled 04/26/2025. Latitude remote f/u 01/11/2025. Danelle Perez, BEE Jake De Leon MD CV CARDIAC SERVICES PROCEDURES F inal Result from Last 3 Months Insurance BLUE CROSS MEDICARE SUPPLEMENT MEDICARE Care Teams Tobacco Sprayer Relationship Specialty Start Date End Date Ramo Dale MD [address] [place] [address] PCP - General 06/03/10
[2024-11-29 09:05] LABS: INR 1.8; Prothrombin Time 18.8 Seconds (9.50-12.1)
[2024-11-29 09:24] LABS: Anion Gap 10 mmol/L (4-12); Blood Urea Nitrogen 31 mg/dL (7-18); Calcium 8.9 mg/dL (8.5-10.1); Carbon Dioxide 28 mmol/L (21-32); Chloride 105 mmol/L (98-108); Estimated Glomerular Filt Rate 48; Glucose 99 mg/dL (70-99); Osmolality Calculated 302 mOsm/kg (285-295); Potassium 4.5 mmol/L (3.5-5.1); Sodium 143 mmol/L (136-145)
== END 2024-11-29 08:33 | disposition home or self-care (01) ==
LOC: CHSLAB 08:34
PROVIDERS: PCP Internal Medicine; Visit Provider Internal Medicine
DX: I10 Essential (primary) hypertension (principal); Z79.01 Long term (current) use of anticoagulants
CPT/HCPCS: 36415; 80048; 85610

== ENCOUNTER 2024-12-12 08:26 | Outpatient (CLI) | payer MEDICARE, SELFPAY ==
--- OUTSIDE RECORDS SUMMARY | 2024-12-12 08:42 | XMS_ITS | Clinical Summary ---
Author Organization [facility] Address [address] [place] [address] Care Team Providers Care Passenger Interline Clerk Name Role Phone Ramo Dale MD Primary Care Provider [phone] Allergies No known active allergies Medications simvastatin [...] 1:40 PM CDT): Mild. Would not recommend FITTER WELDER. I spent a total of 30Face to Face minutes of which more than 50% of the time was spent in counseling and coordination of care. This time included: Discussion of FITTER WELDER. Risk. Indications for CHF and EF less than 30% with mild symptoms in less than 40 for moderate symptoms. In addition no good studies with patients in his age group showing benefit. Would not recommend FITTER WELDER at this time. 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 Better life less than 6 months. Excellent lead function. With ventricular thresholds less than 0.5 volts. Discussed need for generator change likely later this year. But not now. May have done here be will follow fall probably follow-up in [place] to do this. Chronic anticoagulation 09/28/2019 H/O: [...] (complete heart block) Pacemaker 02/27/2014 Overview (03/01/2020): [place] Sci Dual Pacemaker. Dx; Second Degree Hb. [...] Department Care Team Description 10/12/2024 8:15 AM CANE STRIPPER Ancillary Procedure [facility] Medical Group Cardiology [address] [place] [phone] Complete atrioventricular block (HCC); Dilated cardiomyopathy [...] on file Legal Sex Male 1:15 AM CANE STRIPPER Gender Identity Not on file Sexual Orientation [...] 02/21/2016, 08/17 Medical Devices Implanted Type Area Roll Over Press Operator Device Identifier Shelf Expiration Date Model / Serial / Lot Pacemaker-05/17 Implanted:05/17 (Quantity not on file) Pacemaker Chest [employer] Second Degree HB ALTRUA [id number] / [id number] / Procedures Procedure Name Priority Date/Time Associated Diagnosis Comments DEVICE CHECK - REMOTE Routine 10/13/2024 1:41 PM CANE STRIPPER Complete atrioventricular block (HCC) Dilated cardiomyopathy (HCC) from Last 3 Months Results * DEVICE CHECK - REMOTE (10/13/2024 1:41 PM CANE STRIPPER) Anatomical Region Laterality Modality Other Narrative 10/14/2024 2:23 PM CANE STRIPPER [place] Sci Dual Pacemaker. Dx; Second Degree Hb. Gen change 03/01/2020-[employer], chronic leads 05/31/2010. Latitude remote monitoring. Routine DDD Pacemaker remote. Normal device function. Battery function-Ok, 3.5 years remaining battery life to NASH. Appropriate lead measurements noted. Presenting rhythm: -SPRING ENCASER. AP-23%, SPRING ENCASER-100%. 35 Atrial high rate episodes noted, iegm's Atach. No ventricular high rate episodes noted. Medications; Coumadin, Cozaar, Norvasc. See scanned report. Office device f/u and ROV with Dr De Leon scheduled 04/26/2025. Latitude remote f/u 01/11/2025. Danelle Perez RN Jake De Leon MD CV CARDIAC SERVICES PROCEDURES F inal Result from Last 3 Months Insurance MEDICARE [facility] MEDICARE SUPPLEMENT MEDICARE Care Teams Passenger Interline Clerk Relationship Specialty Start Date End Date Ramo Dale MD [address] [place] [address] PCP - General 06/03/10
--- OUTSIDE RECORDS SUMMARY | 2024-12-12 08:42 | XMS_ITS | Referral Summary ---
Author Organization [facility] Address [address] [place] [address] Care Team Providers Care Advanced Manufacturing Technician Name Role Phone Ramo Dale MD Primary Care Provider [phone] Encounters Date Type Department Care Team Description 10/12/2024 8:15 AM CRATE MAKER Ancillary Procedure [facility] Medical Group Cardiology [address] [place] [phone] Complete atrioventricular block (HCC); Dilated cardiomyopathy [...] 1:40 PM CDT): Mild. Would not recommend OCCUPATIONAL HEALTH AND SAFETY ADVISER. I spent a total of 30Face to Face minutes of which more than 50% of the time was spent in counseling and coordination of care. This time included: Discussion of OCCUPATIONAL HEALTH AND SAFETY ADVISER. Risk. Indications for CHF and EF less than 30% with mild symptoms in less than 40 for moderate symptoms. In addition no good studies with patients in his age group showing benefit. Would not recommend OCCUPATIONAL HEALTH AND SAFETY ADVISER at this time. 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 Better life less than 6 months. Excellent lead function. With ventricular thresholds less than 0.5 volts. Discussed need for generator change likely later this year. But not now. May have done here be will follow fall probably follow-up in [place] to do this. Chronic anticoagulation 09/28/2019 H/O: [...] (complete heart block) Pacemaker 02/27/2014 Overview (03/01/2020): [place] Sci Dual Pacemaker. Dx; Second Degree Hb. [...] on file Legal Sex Male 1:15 AM CRATE MAKER Gender Identity Not on file Sexual Orientation [...] on file Medical Devices Implanted Type Area Oyster Unloader Device Identifier Shelf Expiration Date Model / Serial / Lot Pacemaker-05/17 Implanted:05/17 (Quantity not on file) Pacemaker Chest Neocrafts Second Degree HB ALTRUA S606 / [id number] / Procedures Procedure Name Priority Date/Time Associated Diagnosis Comments DEVICE CHECK - REMOTE Routine 10/13/2024 1:41 PM CRATE MAKER Complete atrioventricular block (HCC) Dilated cardiomyopathy (HCC) from Last 3 Months Results * DEVICE CHECK - REMOTE (10/13/2024 1:41 PM CRATE MAKER) Anatomical Region Laterality Modality Other Narrative 10/14/2024 2:23 PM CRATE MAKER [place] Meritful Dual Pacemaker. Dx; Second Degree Hb. Gen change 03/01/2020-[facility], chronic leads 05/31/2010. Latitude remote monitoring. Routine DDD Pacemaker remote. Normal device function. Battery function-Ok, 3.5 years remaining battery life to NASH. Appropriate lead measurements noted. Presenting rhythm: -CUSTOMER ENGAGEMENT ANALYST. AP-23%, CUSTOMER ENGAGEMENT ANALYST-100%. 35 Atrial high rate episodes noted, iegm's Atach. No ventricular high rate episodes noted. Medications; Coumadin, Cozaar, Norvasc. See scanned report. Office device f/u and ROV with Dr De Leon scheduled 04/26/2025. Latitude remote f/u 01/11/2025. Danelle Perez, BEE Jake De Leon MD CV CARDIAC SERVICES PROCEDURES F inal Result from Last 3 Months Insurance BLUE CROSS MEDICARE SUPPLEMENT MEDICARE Care Teams Advanced Manufacturing Technician Relationship Specialty Start Date End Date Ramo Dale MD [address] [place] [address] PCP - General 06/03/10
--- OUTSIDE RECORDS SUMMARY | 2024-12-12 08:42 | XMS_ITS | Clinical Summary ---
Author Organization [facility] Address [address] [place] [address] Care Team Providers Care Golf Manager Name Role Phone Ramo Dale MD Primary Care Provider [phone] Allergies No known active allergies Medications Cyanocobalamin [...] drink = 0.6 oz pur e alcohol) [facility] Utilities Answer Date Recorded In the past 12 months has e [employer], gas, oil, or water [employer] threatened to shut off services in your [...] often do you attend chur ch or buddhist services? Never 10/06/2023 Do you belong to any clubs o r organizations such as cheondoism groups, unions, fraternal or athletic groups, or [...] care, and heating? Not very hard 10/06/2023 [facility] - Occupational Stress Questionnaire Answer Date [...] place to sleep or slept in a senior care (including now)? No 10/06/2023 Sex and Gender Information Value Date Recorded Sex Assigned at Not on file Legal Sex Male 9:18 PM CDT Gender Identity Not on file Sexual Orientation Not on file Last Filed Vital Signs Vital Sign Reading Time Taken Comments Blood Pressure 114/67 10/13/2023 11:45 AM SCRUM COACH Pulse 81 10/13/2023 11:45 AM SCRUM COACH Temperature 36.9 C (98.4 F) 10/13/2023 7:55 AM SCRUM COACH Respiratory Rate 18 10/12/2023 2:06 PM SCRUM COACH Oxygen Saturation 97% 10/13/2023 11:45 AM SCRUM COACH Inhaled Oxygen Concentration - - Weight 99.5 kg (219 lb 5.7 oz) 10/08/2023 4:33 A M SCRUM COACH Height 185.4 cm (6' 1 ) 10/06/2023 9:59 AM SCRUM COACH Body Mass Index 28.94 10/06/2023 9:59 AM SCRUM COACH Plan of Treatment Health Maintenance Due Date [...] Pruitt RN Medical Devices Implanted Type Area Factory Expert Device Identifier Shelf Expiration Date Model / Serial / Lot Ra Lead- 0 Implanted:Qty: 1 on 05/31/2010 Lead Implant Right: Atrium [employer]HY [id number] / [id number] / Description:LEAD IS NOT MR C ONDITIONAL Rv Lead- 0 Implanted:Qty: 1 on 05/31/2010 Lead Implant Right: Ventricle [employer] 4136 / [id number] / Description:LEAD IS NOT MR C ONDITIONAL Pacemaker-03/01 Implanted:Qty: 1 on 03/01/2020 Pacemaker [employer] L111 / [id number] / Description:DEVICE IS NOT MR CONDITIONAL ( LEADS ARE NOT MR CONDITIONAL) Insurance MEDICARE [facility] MEDICARE BLUE CROSS BLUE SHIELD BLUE CROSS BLUE SHIELD Advance Directives * Full Code (Latest Code Status on File) Date Activated Date Inactivated Comments 10/06/2023 5:32 PM 10/13/2023 3:33 PM * Full Code Date Activated Date Inactivated Comments 10/06/2023 5:32 PM 10/06/2023 5:32 PM Care Teams Golf Manager Relationship Specialty Start Date End Date Ramo Dale MD [address] [place] [address] PCP - General INTERNAL MEDICINE 12/10/18
--- OUTSIDE RECORDS SUMMARY | 2024-12-12 08:42 | XMS_ITS | Encounter Summary ---
Author Organization [facility] Address [facility] [place] [address] Care Team Providers Care Cooperative Education Coordinator Name Role Phone Ramo Dale MD Primary Care Provider [phone] Encounter Details Date Type Department Care Team (Late st Contact Info) Description 10/31/2017 Abstract [facility] CONVERSION [address] [place] [address] , Generic Conversion, Social History Tobacco Use [...] on filedocumented in this encounter Care Teams Cooperative Education Coordinator Relationship Specialty Start Date End Date Ramo Dale MD [address] [place] [address] PCP - General INTERNAL MEDICINE 12/10/18 documented as of this encounter
[2024-12-12 08:57] LABS: INR 1.9; Partial Thromboplastin Time 35.3 Sec (23.9-30.70); Prothrombin Time 19.7 Seconds (9.50-12.1)
[2024-12-12 09:27] LABS: Anion Gap 7 mmol/L (4-12); Blood Urea Nitrogen 19 mg/dL (7-18); Calcium 9.1 mg/dL (8.5-10.1); Carbon Dioxide 29 mmol/L (21-32); Chloride 105 mmol/L (98-108); Estimated Glomerular Filt Rate 52; Glucose 105 mg/dL (70-99); Osmolality Calculated 294 mOsm/kg (285-295); Potassium 4.6 mmol/L (3.5-5.1); Sodium 141 mmol/L (136-145)
== END 2024-12-12 08:27 | disposition home or self-care (01) ==
PROVIDERS: PCP Internal Medicine; Visit Provider Internal Medicine
DX: I10 Essential (primary) hypertension (principal); Z79.01 Long term (current) use of anticoagulants; D69.6 Thrombocytopenia, unspecified
CPT/HCPCS: 36415; 80048; 85610; 85730

== ENCOUNTER 2024-12-14 08:45 | Outpatient (CLI) | payer MEDICARE, SELFPAY ==
--- NOTE | ~2024-12-14 | US_ITS ---
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 COMPARISON: None. FINDINGS: Right and left brachial artery pressures of 163 mm Hg and 161 mm Hg, respectively, are concordant (no rmal difference <= 30 mmHg). The right ankle-brachial index (MARTITA) is 1.37 (normal >= 0.9-1.0). The right great toe-brachial index (TBI) is 0.91 (normal >= 0.65). Arterial Doppler waveforms are biphasic with brisk systolic upstrokes at both right posterior tibial and dorsalis pedis arteries. The left MARTITA is 1.21. The left TBI is 1.06. Arterial Doppler waveforms are biphasic with brisk systol ic upstrokes at both left posterior tibial and dorsalis pedis arteries. IMPRESSION: 1. No significant arterial occlusive disease with normal bilateral ABIs and TBIs. Reviewed, dictated and finalized at location B. IMPRESSION: 1. No significant arterial occlusive disease with normal bilateral ABIs and TBI s.
--- OUTSIDE RECORDS SUMMARY | 2024-12-14 09:05 | XMS_ITS | Clinical Summary ---
Author Organization [facility] Address [address] [place] [address] Care Team Providers Care Transmitter Chief Name Role Phone Ramo Dale MD Primary Care Provider [phone] Allergies No known active allergies Medications simvastatin [...] 1:40 PM CDT): Mild. Would not recommend SURGERY MANAGER. I spent a total of 30Face to Face minutes of which more than 50% of the time was spent in counseling and coordination of care. This time included: Discussion of SURGERY MANAGER. Risk. Indications for CHF and EF less than 30% with mild symptoms in less than 40 for moderate symptoms. In addition no good studies with patients in his age group showing benefit. Would not recommend SURGERY MANAGER at this time. Pacemaker-dependent due to [...] be will follow fall probably follow-up in [place] to do this. Chronic anticoagulation 09/28/2019 H/O: [...] (complete heart block) Pacemaker 02/27/2014 Overview (03/01/2020): [place] Sci Dual Pacemaker. Dx; Second Degree Hb. [...] Department Care Team Description 10/12/2024 8:15 AM EXPLOSIVE ORDNANCE DISPOSAL SPECIALIST Ancillary Procedure [facility] Medical Group Cardiology [address] [place] [phone] Complete atrioventricular block (HCC); Dilated cardiomyopathy [...] on file Legal Sex Male 1:15 AM EXPLOSIVE ORDNANCE DISPOSAL SPECIALIST Gender Identity Not on file Sexual [...] 02/21/2016, 08/17 Medical Devices Implanted Type Area Swing Type Lathe Operator Device Identifier Shelf Expiration Date Model / Serial / Lot Pacemaker-05/17 Implanted:05/17 (Quantity not on file) Pacemaker Chest [employer] Second Degree HB ALTRUA S606 / [id number] / Procedures Procedure Name Priority Date/Time Associated Diagnosis Comments DEVICE CHECK - REMOTE Routine 10/13/2024 1:41 PM EXPLOSIVE ORDNANCE DISPOSAL SPECIALIST Complete atrioventricular block (HCC) Dilated cardiomyopathy (HCC) from Last 3 Months Results * DEVICE CHECK - REMOTE (10/13/2024 1:41 PM EXPLOSIVE ORDNANCE DISPOSAL SPECIALIST) Anatomical Region Laterality Modality Other Narrative 10/14/2024 2:23 PM EXPLOSIVE ORDNANCE DISPOSAL SPECIALIST [place] Sci Dual Pacemaker. Dx; Second Degree Hb. Gen change 03/01/2020-[facility], chronic leads 05/31/2010. Latitude remote monitoring. Routine DDD Pacemaker remote. Normal device function. Battery function-Ok, 3.5 years remaining battery life to NASH. Appropriate lead measurements noted. Presenting rhythm: -BELLHOP. AP-23%, BELLHOP-100%. 35 Atrial high rate episodes noted, iegm's Atach. No ventricular high rate episodes noted. Medications; Coumadin, Cozaar, Norvasc. See scanned report. Office device f/u and ROV with Dr De Leon scheduled 04/26/2025. Latitude remote f/u 01/11/2025. Danelle Perez RN Jake De Leon MD CV CARDIAC SERVICES PROCEDURES F inal Result from Last 3 Months Insurance MEDICARE [facility] MEDICARE SUPPLEMENT MEDICARE Care Teams Transmitter Chief Relationship Specialty Start Date End Date Ramo Dale MD [address] [place] [address] PCP - General 06/03/10
--- OUTSIDE RECORDS SUMMARY | 2024-12-14 09:05 | XMS_ITS | Referral Summary ---
Author Organization [facility] Address [address] [place] [address] Care Team Providers Care Performance Improvement Specialist Name Role Phone Ramo Dale MD Primary Care Provider [phone] Encounters Date Type Department Care Team Description 10/12/2024 8:15 AM ROLL EDGE STITCHER HAND Ancillary Procedure [facility] Medical Group Cardiology [address] [place] [phone] Complete atrioventricular block (HCC); Dilated cardiomyopathy [...] 1:40 PM CDT): Mild. Would not recommend DINKEY BRAKEMAN. I spent a total of 30Face to Face minutes of which more than 50% of the time was spent in counseling and coordination of care. This time included: Discussion of DINKEY BRAKEMAN. Risk. Indications for CHF and EF less than 30% with mild symptoms in less than 40 for moderate symptoms. In addition no good studies with patients in his age group showing benefit. Would not recommend DINKEY BRAKEMAN at this time. 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 Better life less than 6 months. Excellent lead function. With ventricular thresholds less than 0.5 volts. Discussed need for generator change likely later this year. But not now. May have done here be will follow fall probably follow-up in [place] to do this. Chronic anticoagulation 09/28/2019 H/O: [...] (complete heart block) Pacemaker 02/27/2014 Overview (03/01/2020): [place] Sci Dual Pacemaker. Dx; Second Degree Hb. [...] on file Legal Sex Male 1:15 AM ROLL EDGE STITCHER HAND Gender Identity Not on file Sexual Orientation [...] on file Medical Devices Implanted Type Area Teacher Of The Visually Impaired Device Identifier Shelf Expiration Date Model / Serial / Lot Pacemaker-05/17 Implanted:05/17 (Quantity not on file) Pacemaker Chest [employer] Second Degree HB ALTRUA S606 / [id number] / Procedures Procedure Name Priority Date/Time Associated Diagnosis Comments DEVICE CHECK - REMOTE Routine 10/13/2024 1:41 PM ROLL EDGE STITCHER HAND Complete atrioventricular block (HCC) Dilated cardiomyopathy (HCC) from Last 3 Months Results * DEVICE CHECK - REMOTE (10/13/2024 1:41 PM ROLL EDGE STITCHER HAND) Anatomical Region Laterality Modality Other Narrative 10/14/2024 2:23 PM ROLL EDGE STITCHER HAND [place] Dual Pacemaker. Dx; Second Degree Hb. Gen change 03/01/2020-[facility], chronic leads 05/31/2010. Latitude remote monitoring. Routine DDD Pacemaker remote. Normal device function. Battery function-Ok, 3.5 years remaining battery life to NASH. Appropriate lead measurements noted. Presenting rhythm: -EMPLOYEE TRAINING SPECIALIST. AP-23%, EMPLOYEE TRAINING SPECIALIST-100%. 35 Atrial high rate episodes noted, iegm's Atach. No ventricular high rate episodes noted. Medications; Coumadin, Cozaar, Norvasc. See scanned report. Office device f/u and ROV with Dr De Leon scheduled 04/26/2025. Latitude remote f/u 01/11/2025. Danelle Perez, BEE Jake De Leon MD CV CARDIAC SERVICES PROCEDURES F inal Result from Last 3 Months Insurance BLUE CROSS MEDICARE SUPPLEMENT MEDICARE Care Teams Performance Improvement Specialist Relationship Specialty Start Date End Date Ramo Dale MD [address] [place] [address] PCP - General 06/03/10
== END 2024-12-14 08:46 | disposition home or self-care (01) ==
PROVIDERS: PCP Internal Medicine; Visit Provider Internal Medicine
DX: I73.9 Peripheral vascular disease, unspecified (principal)
CPT/HCPCS: 93922

== ENCOUNTER 2025-03-22 07:18 | Outpatient (RCR) | payer MEDICARE, SELFPAY ==
--- OUTSIDE RECORDS SUMMARY | 2025-01-11 09:03 | XMS_ITS | Referral Summary ---
Author Organization [facility] Address [address] [place] [address] Care Team Providers Care Correctional Food Service Supervisor Name Role Phone Ramo Dale MD Primary Care Provider [phone] Allergies No known active allergies Medications simvastatin [...] 1:40 PM CDT): Mild. Would not recommend SPECIALTY MOLDER. I spent a total of 30Face to Face minutes of which more than 50% of the time was spent in counseling and coordination of care. This time included: Discussion of SPECIALTY MOLDER. Risk. Indications for CHF and EF less than 30% with mild symptoms in less than 40 for moderate symptoms. In addition no good studies with patients in his age group showing benefit. Would not recommend SPECIALTY MOLDER at this time. 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 Better life less than 6 months. Excellent lead function. With ventricular thresholds less than 0.5 volts. Discussed need for generator change likely later this year. But not now. May have done here be will follow fall probably follow-up in [place] to do this. Chronic anticoagulation 09/28/2019 H/O: [...] (complete heart block) Pacemaker 02/27/2014 Overview (03/01/2020): [place] Sci Dual Pacemaker. Dx; Second Degree Hb. [...] on file Legal Sex Male 1:15 AM RISK CONTROL FIELD REPRESENTATIVE Gender Identity Not on file Sexual Orientation [...] 10:52 AM CDT Height 177.8 cm (5' 10) 04/13/2024 10:52 AM CDT Body Mass Index 28.27 04/13/2024 10:52 AM CDT Plan of Treatment Not on file Medical Devices Implanted Type Area Diesel Crane Operator Device Identifier Shelf Expiration Date Model / Serial / Lot Pacemaker-05/17 Implanted:05/17 (Quantity not on file) Pacemaker Chest [employer] Second Degree HB ALTRUA S606 / [id number] / Insurance MEDICARE [facility] MEDICARE SUPPLEMENT MEDICARE Care Teams Correctional Food Service Supervisor Relationship Specialty Start Date End Date Ramo Dale MD [address] [place] [address] PCP - General 06/03/10
--- OUTSIDE RECORDS SUMMARY | 2025-01-11 09:03 | XMS_ITS ---
Author Organization [facility] Care Team Providers Care Cutter Out Name Role Phone Yobani Page Unavailable Unavailable Ramo Dale Unavailable Unavailable Allergies and adverse reactions No Known Allergies Care Team Name Role Address Phone Organization Dates Ramo Dale PCP [address], [place], [facility] (Office): : [facility] 11/01/2023 - 12/25/2023 Yobani Page [address], [place], [facility], [place] (Office): : [facility] 11/01/2023 - 12/25/2023 Immunizations Immunization Status Vaccine Details Vaccine Code CodeSystem Abner e Notes TB 2 Step Mantoux Skin Test completed tuberculin skin test; unspecified formulation lotNumber: [id number] expiry: 07/17/2026 Mfg: Tubersol Mantoux Given 0.1 ml Left Forearm intradermally Step 1 of Multi-step with next step required 98 CVX created date: 10/14/2023 consent date: 10/14/2023 administere d date: 10/14/2023 Mental Status Section Date Assessment Total Score Description 12/25/2023 BIMS 14 cognitively int act CAM 0 No delirium ind icated PHQ-9 07 mild depression 11/04/2023 BIMS 09 moderate cognit hetal impairment CAM 0 No delirium ind icated PHQ-9 09 mild depression Problems Problem # Description Date of onset Resolved Date Code CodeSystem Concern Status 1 CARDIOMEGALY 11/01/[address] active 2 INFECTION AND INFLAMMATORY REACTION DUE TO INDWELLING URETHRAL CATHETER, SUBSEQUENT ENCOUNTER 11/01/[address] active 3 OTHER SEIZURES 11/01/[address] act hetal 4 OTHER SPECIFIED SPONDYLOPATHIES, THORACIC REGION 11/01/[address] active 5 THROMBOCYTOPENIA, UNSPECIFIED 11/01/[address] active 6 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 11/01/[address] active 7 URINARY TRACT INFECTION, SITE NOT SPECIFIED 11/01/[address] active 8 CHRONIC ATRIAL FIBRILLATION, UNSPECIFIED 10/13/[address] active 9 DIVERTICULOSIS OF INTESTINE, PART UNSPECIFIED, WITHOUT PERFORATION OR ABSCESS WITH BLEEDING 10/13/[address] active 10 DYSPHAGIA, UNSPECIFIED 10/13/[address] active 11 ESSENTIAL (PRIMARY) HYPERTENSION 10/13/[address] active 12 FLACCID NEUROPATHIC BLADDER, NOT ELSEWHERE CLASSIFIED 10/13/[address] active 13 HYPERLIPIDEMIA, UNSPECIFIED 10/13/[address] active 14 HYPO-OSMOLALITY AND HYPONATREMIA 10/13/[address] active 15 LOW BACK PAIN, UNSPECIFIED 10/13/[address] active 16 MILD COGNITIVE IMPAIRMENT OF UNCERTAIN OR UNKNOWN ETIOLOGY 10/13/[address] active 17 PERSONAL HISTORY OF TRANSIENT ISCHEMIC ATTACK (TIA), AND CEREBRAL INFARCTION WITHOUT RESIDUAL DEFICITS 10/13/[address] active 18 PRESENCE OF CARDIAC PACEMAKER 10/13/[address] active 19 REPEATED FALLS 10/13/2023 11/01/[address] completed 20 RETENTION OF URINE, UNSPECIFIED 10/13/[address] active 21 STABLE BURST FRACTURE OF SECOND LUMBAR VERTEBRA, SUBSEQUENT ENCOUNTER FOR FRACTURE WITH ROUTINE HEALING 10/13/[address] active 22 TRAUMATIC SUBDURAL HEMORRHAGE WITH LOSS OF CONSCIOUSNESS STATUS UNKNOWN, SUBSEQUENT ENCOUNTER 10/13/[address] active 23 UNSPECIFIED HEARING LOSS, UNSPECIFIED EAR 10/13/[address] active 24 UNSPECIFIED VISUAL DISTURBANCE 10/13/[address] active 25 UNSTEADINESS ON FEET 10/13/2023 10/13/[address] completed 26 WEAKNESS 10/13/2023 11/01/[address] comple amarjit 27 WEDGE COMPRESSION FRACTURE OF UNSPECIFIED THORACIC VERTEBRA, SUBSEQUENT ENCOUNTER FOR FRACTURE WITH ROUTINE HEALING 10/13/[address] active Reason for Referral No Reasons for Referral Entered Social History Social History Observation Description Start Date End Date Code Code System Current Smoking Status Tobacco smoking consumption unknown 948117575 SNOMED CT Sex Assigned At Male 1940 04172-7 [facility] Gender Identity Male [id number] [address] Vital Signs Code Code System Vitals Name Values and Units Timing Information 9279-1 [facility] Respiratory Rate Value=18.0 Units=/m in 12/25/2023 8462-4 [facility] Blood Pressure-Diastolic Value=64 Un its=mmHg 12/25/2023 8480-6 [facility] Blood Pressure-Systolic Yzaoq=295 Un its=mmHg 12/25/2023 8310-5 [facility] Body Temperature Value=97.4 Units= F 12/25/2023 8867-4 [facility] Heart rate Value=70.0 Units=/min 05/2024 25711-6 [facility] O2 % dC Oximetry Value=99.0 Units= % 12/25/2023 54119-9 [facility] Pain Level Value=0.0 12/25/2023 83843-9 [facility] Weight Vgfri=156.0 Units=Lbs 04/2024 2339-0 [facility] Blood Sugar Value=18.0 Units=mg/dL 11/15/2023 8302-2 [facility] Height Value=76.0 Units=Inches 10/19/2023
--- OUTSIDE RECORDS SUMMARY | 2025-01-11 09:03 | XMS_ITS | Clinical Summary ---
Author Organization [facility] Address [address] [place] [address] Care Team Providers Care Project Management Advisor Name Role Phone Ramo Dale MD Primary [...] 1:40 PM CDT): Mild. Would not recommend GROUP PRODUCT MANAGER. I spent a total of 30Face to Face minutes of which more than 50% of the time was spent in counseling and coordination of care. This time included: Discussion of GROUP PRODUCT MANAGER. Risk. Indications for CHF and EF less than 30% with mild symptoms in less than 40 for moderate symptoms. In addition no good studies with patients in his age group showing benefit. Would not recommend GROUP PRODUCT MANAGER at this time. Pacemaker-dependent due to [...] be will follow fall probably follow-up in [place] to do this. Chronic anticoagulation 09/28/2019 H/O: [...] (complete heart block) Pacemaker 02/27/2014 Overview (03/01/2020): [employer] Dual Pacemaker. Dx; Second Degree Hb. [...] Thrombocytopenia Hyperlipidemia 02/27/2014 02/16/2018 Overview (11/20/2016): Hyperlipidemia Surgical History Surgery Date Site/Laterality Comments CRANIECTOMY [...] on file Legal Sex Male 1:15 AM METEOROLOGY FACULTY MEMBER Gender Identity Not on file Sexual Orientation [...] 1989 Well Visit 65+ 2004 Influenza Vaccine (Season Ended) 2025 06/02/2019, 05/18/2018, 06/08/2017, Additional history exists DTaP/Tdap/Td Vaccine (2 - Td or Tdap) 10/06/2033 10/06/2023 Pneumococcal vaccine 65+ Completed 02/21/2016, 08/17 Medical Devices Implanted Type Area Records Management Clerk Device Identifier Shelf Expiration Date Model / Serial / Lot Pacemaker-05/17 Implanted:05/17 (Quantity not on file) Pacemaker Chest Kiko Second Degree HB ALTRUA [id number] / [id number] / Insurance MEDICARE BLUE CROSS MEDICARE SUPPLEMENT MEDICARE Care Teams Project Management Advisor Relationship Specialty Start Date End Date Ramo Dale MD [address] [place] [address] [facility] - General 06/03/10
[2025-01-11 09:42] LABS: INR 3.1; Partial Thromboplastin Time 39.8 Sec (23.9-30.70); Prothrombin Time 31.0 Seconds (9.50-12.1)
[2025-02-07 09:04] LABS: INR 3.1; Partial Thromboplastin Time 40.4 Sec (23.9-30.70); Prothrombin Time 30.7 Seconds (9.50-12.1)
[2025-03-08 09:31] LABS: INR 3.9; Partial Thromboplastin Time 42.3 Sec (23.9-30.70); Prothrombin Time 38.0 Seconds (9.50-12.1)
[2025-03-15 08:20] LABS: INR 4.3; Partial Thromboplastin Time 44.4 Sec (23.9-30.70); Prothrombin Time 41.6 Seconds (9.50-12.1)
[2025-03-22 07:53] LABS: INR 2.1; Partial Thromboplastin Time 36.2 Sec (23.9-30.70); Prothrombin Time 21.2 Seconds (9.50-12.1)
== END 2025-04-11 23:59 | disposition home or self-care (01) ==
LOC: CHSLAB 07:18
PROVIDERS: PCP Internal Medicine; Visit Provider Internal Medicine
DX: D69.6 Thrombocytopenia, unspecified (principal); Z79.01 Long term (current) use of anticoagulants
CPT/HCPCS: 36415; 85610; 85730

== ENCOUNTER 2025-05-08 08:00 | Outpatient (CLI) | payer MEDICARE, SELFPAY ==
--- OUTSIDE RECORDS SUMMARY | 2025-05-08 08:32 | XMS_ITS | Encounter Summary ---
Author Organization [facility] Address [facility] [place] [address] Care Team Providers Care Inspector Wire Products Name Role Phone Ramo Dale MD Primary Care Provider Encounter Details Date Type Department Care Team (Late st Contact Info) Description 10/31/2017 Abstract [facility]JS CONVERSION [address] [place] [address] , Generic Conversion, Social History Tobacco Use [...] on filedocumented in this encounter Care Teams Inspector Wire Products Relationship Specialty Start Date End Date Ramo Dale MD [address] [place] [address] PCP - General INTERNAL MEDICINE 12/10/18 documented as of this encounter
--- OUTSIDE RECORDS SUMMARY | 2025-05-08 08:32 | XMS_ITS | Clinical Summary ---
Author Organization [facility] Address [address] [place] [address] Care Team Providers Care Public Relations Manager Name Role Phone Ramo Dale MD Primary Care Provider [phone] Allergies No known active allergies Medications Cyanocobalamin [...] drink = 0.6 oz pur e alcohol) [facility] Utilities Answer Date Recorded In the past 12 months has e [employer], gas, oil, or water [employer] threatened to shut off services in your [...] often do you attend chur ch or oriental orthodox services? Never 10/06/2023 Do you belong to any clubs o r organizations such as uatsdin groups, unions, fraternal or athletic groups, or [...] care, and heating? Not very hard 10/06/2023 [facility] of Occupat ional [facility] - Occupational Stress Questionnaire Answer [...] place to sleep or slept in a mcc (including now)? No 10/06/2023 Sex and Gender Information Value Date Recorded Sex Assigned at Not on file Legal Sex Male 9:18 PM CDT Gender Identity Not on file Sexual Orientation Not on file Last Filed Vital Signs Vital Sign Reading Time Taken Comments Blood Pressure 114/67 10/13/2023 11:45 AM DRIVER COURIER Pulse 81 10/13/2023 11:45 AM DRIVER COURIER Temperature 36.9 C (98.4 F) 10/13/2023 7:55 AM DRIVER COURIER Respiratory Rate 18 10/12/2023 2:06 PM DRIVER COURIER Oxygen Saturation 97% 10/13/2023 11:45 AM DRIVER COURIER Inhaled Oxygen Concentration - - Weight 99.5 kg (219 lb 5.7 oz) 10/08/2023 4:33 A M DRIVER COURIER Height 185.4 cm (6' 1) 10/06/2023 9:59 AM DRIVER COURIER Body Mass Index 28.94 10/06/2023 9:59 AM DRIVER COURIER Plan of Treatment Health Maintenance Due Date Last Done Comments Annual Medicare Wellness Visit 2004 COVID-19 Vaccine ( season) 2025 05/24/2023, 04/28/2022, 11/30/2021, Additional history exists DTaP, [...] Pruitt RN Medical Devices Implanted Type Area Granite Chip Terrazzo Finisher Device Identifier Shelf Expiration Date Model / Serial / Lot Ra Lead- 0 Implanted:Qty: 1 on 05/31/2010 Lead Implant Right: Atrium [employer] [id number] / [id number] / Description:LEAD IS NOT MR C ONDITIONAL Rv Lead- 0 Implanted:Qty: 1 on 05/31/2010 Lead Implant Right: Ventricle [employer] [id number] / [id number] / Description:LEAD IS NOT MR C ONDITIONAL Pacemaker-03/01 Implanted:Qty: 1 on 03/01/2020 Pacemaker [employer] [id number] / [id number] / Description:DEVICE IS NOT MR CONDITIONAL ( LEADS ARE NOT MR CONDITIONAL) Insurance MEDICARE [facility] MEDICARE BLUE CROSS BLUE SHIELD BLUE CROSS BLUE SHIELD Advance Directives * Full Code (Latest Code Status on File) Date Activated Date Inactivated Comments 10/06/2023 5:32 PM 10/13/2023 3:33 PM * Full Code Date Activated Date Inactivated Comments 10/06/2023 5:32 PM 10/06/2023 5:32 PM Care Teams Public Relations Manager Relationship Specialty Start Date End Date Ramo Dale MD [address] [place] [address] PCP - General INTERNAL MEDICINE 12/10/18
[2025-05-08 08:39] LABS: Hematocrit 42.9 % (37.0-46.0); Hemoglobin 13.7 g/dL (12.4-15.3); Immature Platelet Fraction Pct 2.1 % (1.0-7.0); Mean Corpuscular HGB Conc 31.9 g/dL (32-36); Mean Corpuscular Hemoglobin 31.0 pg (27.0-31.0); Mean Corpuscular Volume 97.1 fL (78.0-102.0); Platelet Count Result 69 K/mm3 (150-420); Red Blood Count 4.42 M/mm3 (4.70-6.10); White Blood Count 8.1 K/mm3 (4.8-10.8)
[2025-05-08 08:49] LABS: Alanine Aminotransferase 23 U/L (6-50); Albumin Level 4.3 g/dL (3.5-5.1); Alkaline Phosphatase 101 U/L (38-126); Anion Gap 11 mmol/L (4-12); Aspartate Amino Transferase 31 U/L (17-59); Bilirubin,Total 0.6 mg/dL (0.2-1.3); Blood Urea Nitrogen 20 mg/dL (9-20); Calcium 9.4 mg/dL (8.4-10.2); Carbon Dioxide 24 mmol/L (22-30); Chloride 109 mmol/L (98-107); Cholesterol 158 mg/dL (0-200); Creatine Kinase 62 U/L (55-170); Estimated Glomerular Filt Rate 53; Glucose 103 mg/dL (65-110); HDL Direct 37 mg/dL; Osmolality Calculated 300 mOsm/kg (285-295); Potassium 4.3 mmol/L (3.4-5.0); Sodium 144 mmol/L (137-145); Total Protein 7.7 g/dL (6.3-8.2); Triglycerides 134 mg/dL (<150)
[2025-05-08 08:50] LABS: Hemoglobin A1C 5.6 % (<5.7)
[2025-05-08 09:09] LABS: Add Urine Microscopic? YES; Appearance Urine Clear (Clear); Glucose Urine UA Negative (Negative); Leukocyte Esterase Ur 1+ LEU/UL (Negative); Nitrate Urine Positive (Negative); Specific Grav Ur 1.010 (1.010-1.020)
== END 2025-05-08 08:01 | disposition home or self-care (01) ==
LOC: CHSLAB 08:03
PROVIDERS: PCP Internal Medicine; Visit Provider Internal Medicine
DX: E78.2 Mixed hyperlipidemia (principal); R73.01 Impaired fasting glucose; N39.0 Urinary tract infection, site not specified; Z79.01 Long term (current) use of anticoagulants; D69.6 Thrombocytopenia, unspecified
CPT/HCPCS: 36415; 80053; 80061; 81001; 82550; 83036; 85027; 85055; 87086

== ENCOUNTER 2025-05-17 08:00 | Outpatient (CLI) | payer MEDICARE, SELFPAY ==
--- OUTSIDE RECORDS SUMMARY | 2025-05-17 08:12 | XMS_ITS | Clinical Summary ---
Author Organization [facility] Address [address] [place] [address] Care Team Providers Care Co Founder And Chief Strategy Officer Name Role Phone Ramo Dale MD Primary Care Provider [phone] Allergies No known active allergies Medications Cyanocobalamin [...] drink = 0.6 oz pur e alcohol) [facility] Utilities Answer Date Recorded In the past 12 months has e [employer], gas, oil, or water [employer] threatened to shut off services in your [...] often do you attend chur ch or yazidism services? Never 10/06/2023 Do you belong to any clubs o r organizations such as scientology groups, unions, fraternal or athletic groups, or [...] care, and heating? Not very hard 10/06/2023 [facility] of Occupat ional [facility] - Occupational Stress Questionnaire Answer Date Recorded [...] place to sleep or slept in a longterm (including now)? No 10/06/2023 Sex and Gender Information Value Date Recorded Sex Assigned at Not on file Legal Sex Male 9:18 PM CDT Gender Identity Not on file Sexual Orientation Not on file Last Filed Vital Signs Vital Sign Reading Time Taken Comments Blood Pressure 114/67 10/13/2023 11:45 AM EVENT MARKETING ASSISTANT Pulse 81 10/13/2023 11:45 AM EVENT MARKETING ASSISTANT Temperature 36.9 C (98.4 F) 10/13/2023 7:55 AM EVENT MARKETING ASSISTANT Respiratory Rate 18 10/12/2023 2:06 PM EVENT MARKETING ASSISTANT Oxygen Saturation 97% 10/13/2023 11:45 AM EVENT MARKETING ASSISTANT Inhaled Oxygen Concentration - - Weight 99.5 kg (219 lb 5.7 oz) 10/08/2023 4:33 A M EVENT MARKETING ASSISTANT Height 185.4 cm (6' 1) 10/06/2023 9:59 AM EVENT MARKETING ASSISTANT Body Mass Index 28.94 10/06/2023 9:59 AM EVENT MARKETING ASSISTANT Plan of Treatment Health Maintenance Due Date [...] Pruitt RN Medical Devices Implanted Type Area Campus Manager Device Identifier Shelf Expiration Date Model / Serial / Lot Ra Lead- 0 Implanted:Qty: 1 on 05/31/2010 Lead Implant Right: Atrium [employer] [id number] / [id number] / Description:LEAD IS NOT MR C ONDITIONAL Rv Lead- 0 Implanted:Qty: 1 on 05/31/2010 Lead Implant Right: Ventricle [employer] [id number] / [id number] / Description:LEAD IS NOT MR C ONDITIONAL Pacemaker-03/01 Implanted:Qty: 1 on 03/01/2020 Pacemaker [employer] [id number] / [id number] / Description:DEVICE IS NOT MR CONDITIONAL ( LEADS ARE NOT MR CONDITIONAL) Insurance MEDICARE [facility] MEDICARE BLUE CROSS BLUE SHIELD BLUE CROSS BLUE SHIELD Advance Directives * Full Code (Latest Code Status on File) Date Activated Date Inactivated Comments 10/06/2023 5:32 PM 10/13/2023 3:33 PM * Full Code Date Activated Date Inactivated Comments 10/06/2023 5:32 PM 10/06/2023 5:32 PM Care Teams Co Founder And Chief Strategy Officer Relationship Specialty Start Date End Date Ramo Dale MD [address] [place] [address] PCP - General INTERNAL MEDICINE 12/10/18
--- OUTSIDE RECORDS SUMMARY | 2025-05-17 08:12 | XMS_ITS | Clinical Summary ---
Author Organization [facility] Address [address] [place] [address] Care Team Providers Care Legal Technician Name Role Phone Ramo Dale MD Primary Care Provider Allergies No known active allergies Medications simvastatin (ZOCOR) 20 mg tablet take 1 tablet by oral route every day in the evening 0 0 5 Active finasteride (PROSCAR) 5 mg tablet take 1 tablet by oral route every day 0 0 5 Active timolol (BETIMOL) 0.5 % ophthalmic solution instill 1 drop by ophthalmic route every day into affected eye(s) 0 0 5 Active brimonidine (ALPHAGAN) 0.2 % ophthalmic solution instill 1 drop by ophthalmic route every 8 hours into affected eye(s) 0 0 6 Active warfarin (COUMADIN) 1 mg tabletIndications: Ischemic Stroke Take 4.5 tablets (4.5 mg total) by mouth daily Active warfarin (COUMADIN) 4 mg tablet TAKE 1 TABLET BY MOUTH DAILY. COMBINE WITH 1/2 TABLET OF 1MG TO MAKE 4.5 MG DAILY. 0 Active losartan (COZAAR) 25 mg tabletIndications: Dilated cardiomyopathy (HCC),Lightheadedn ess Take 1 tablet (25 mg total) by mouth daily 90 tablet 3 0 Active lamoTRIgine (LaMICtal) 150 mg tablet Take 1 tablet (150 mg total) by mouth daily 1 Active tamsulosin (FLOMAX) 0.4 mg extended release capsule TAKE 1 CAPSULE BY MOUTH ONCE DAILY 1/2 HOUR FOLLOWING THE SAME MEAL EACH DAY 1 Active latanoprost (XALATAN) 0.005 % ophthalmic solution INSTILL 1 DROP INTO RIGHT EYE 1 TIMES DAILY 1 Active amLODIPine (NORVASC) 10 mg tablet Take 1 tablet (10 mg total) by mouth daily 2 Active cyanocobalamin, vitamin B-12, (VITAMIN B-12 ORAL) Take by mouth Active ketoconazole (NIZORAL) 2 % cream Apply topically 2 (two) times a day APPLY TO AFFECTED AREA 4 Active Active Problems Problem Noted Date Diagnosed Date ARVIZU (dyspnea on exertion) 02/18/2023 Dizzy spells 04/04/2020 Dilated cardiomyopathy 09/28/2019 Assessment & Plan (11/15/2019 1:40 PM CDT): Mild. Would not recommend DIRECTOR OF CATEGORY MANAGEMENT. I spent a total of 30Face to Face minutes of which more than 50% of the time was spent in counseling and coordination of care. This time included: Discussion of DIRECTOR OF CATEGORY MANAGEMENT. Risk. Indications for CHF and EF less than 30% with mild symptoms in less than 40 for moderate symptoms. In addition no good studies with patients in his age group showing benefit. Would not recommend DIRECTOR OF CATEGORY MANAGEMENT at this time. 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 Better life less than 6 months. Excellent lead function. With ventricular thresholds less than 0.5 volts. Discussed need for generator change likely later this year. But not now. May have done here be will follow fall probably follow-up in [place] to do this. Chronic anticoagulation 09/28/2019 H/O: [...] (complete heart block) Pacemaker 02/27/2014 Overview (03/01/2020): [employer] Dual Pacemaker. Dx; Second Degree Hb. [...] Encounters Date Type Department Care Team Description 04/26/2025 10:30 AM CDT Office Visit [facility] Cardiology [address] [place] [address] Jake De Leon MD Complete atrioventricular block (HCC) (Primary Dx); Pacemaker [Z95.0]; PAF (paroxysmal atrial fibrillation); Primary hypertension; History of fall; History of CVA (cerebrovascular accident); History of subdural hemorrhage; Unsteady gait 04/26/2025 10:00 AM CDT Ancillary Procedure [facility] Cardiology [address] [place] [address] Pacemaker; Complete atrioventricular block (HCC) 04/26/2025 Orders Only [facility] Cardiology [address] [place] [address] [place], [place] [address] [place] [address] Jake De Leon MD Pacemaker (Primary Dx); Second degree AV block 04/25/2025 Telephone [facility] Cardiology [address] [place], [place] [address] [place] [address] Jake De Leon MD 04/12/2025 8:15 AM CDT Ancillary Procedure [facility] Cardiology [address] [place] [address] [place], [place] [address] [place] [address] Pacemaker [Z95.0] (Primary Dx); Complete atrioventricular block (HCC); Second degree AV block; Dilated cardiomyopathy (HCC) from Last 3 Months Surgical History Surgery Date Site/Laterality Comments CRANIECTOMY FOR EXCISION OF ACOUSTIC NEUROMA Medical History Medical History Date Comments Hx Other Medical 2013 pneumonia; Comm ents: U 02/27/2014 - Hx Other Medical TIA; Comments: U 02/27/2014 - Seizure disorder (HCC) Seizure d [...] drink = 0.6 oz pur e alcohol) Sex and Gender Information Value Date Recorded Sex Assigned at Not on file Legal Sex Male 1:15 AM ASSISTANT BUSINESS MANAGER Gender Identity Not on file Sexual Orientation Not on file Obstetrics History Last Filed Vital Signs Vital Sign Reading Time Taken Comments Blood Pressure 148/72 04/26/2025 10:41 AM CDT Pulse 72 04/26/2025 10:41 AM CDT Temperature - - Respiratory Rate - - Oxygen Saturation 96% 04/26/2025 10:41 AM CDT Inhaled Oxygen Concentration - - Weight 93 kg (205 lb) 04/26/2025 10:41 AM CDT Height 177.8 cm (5' 10) 04/26/2025 10:41 AM CDT Body Mass Index 29.41 04/26/2025 10:41 AM CDT Plan of Treatment Health Maintenance Due Date Last Done Comments Depression Screening 1940 Fall Risk Assessment 1940 Hepatitis B Screening 1957 Zoster Vaccine (1 of 2) 1989 Well Visit 65+ 2004 Influenza Vaccine (#1) 2025 , 05/04/2020, 06/02/2019, Additional history exists DTaP/Tdap/Td Vaccine (4 - Td or Tdap) 10/19/2033 10/20/2023, 10/06/2023, 09/30/2019 Pneumococcal vaccine 65+ Completed 02/21/2016, 08/17 Medical Devices Implanted Type Area Steak Tenderizer Machine Device Identifier Shelf Expiration Date Model / Serial / Lot Pacemaker-05/17 Implanted:05/17 (Quantity not on file) Pacemaker Chest [employer] Second Degree HB ALTRUA [id number] / [id number] / Procedures Procedure Name Priority Date/Time Associated Diagnosis Comments ELECTROCARDIOGRAM REPORT Routine 04/26/2025 2:51 PM CDT Complete atrioventricular block (HCC) Pacemaker [Z95.0] DEVICE CHECK - IN OFFICE Routine 04/26/2025 9:31 AM CDT Pacemaker Complete atrioventricular block (HCC) DEVICE CHECK - REMOTE Routine 04/12/2025 11:05 AM CDT 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 Dx; Second Degree Hb. [facility] 05/31/2010. [employer] remote monitoring. Supervising MD: Dr De Leon. Office DDD Pacemaker evaluation demonstrated appropriate device function. Left pectoral incision well approximated without signs of infection noted. Battery function-Ok, 2.5 years remaining battery life to NASH. Appropriate lead measurements noted. Presenting rhythm-ASVP. Underlying rhythm-Second Degree AVB. Consider Pacemaker Dependent. AP-30%, COMPONENT LAB TECH-100%. 36 mode switch episodes recorded, longest duration 12 seconds, iegm shows Atach. No ventricular high rate episodes noted. AC-Coumadin. Ventricular auto capture turned off d/t auto test failed and set the amplitude to 4.5V. Ventricular amplitude set to 2.5V and PW increased to 1.0 ms. Ventricular refractory changed from 240 ms to 230 ms d/t device parameter conflict. See scanned report. Office pacemaker f/u and ROV with Dr De Leon scheduled 05/30/2026. [employer] remote f/u 08/02/2025. Danelle Perez, BEE Ibeth Trujillo NP CV CARDIAC SERVICES PROCEDUR ES Final Result * DEVICE CHECK - REMOTE (04/12/2025 11:05 AM CDT) Anatomical Region Laterality Modality Other Narrative 04/21/2025 4:45 PM CDT [employer] Dual Pacemaker. Dx; Second Degree Hb. Gen change 03/01/2020-[employer], chronic leads 05/31/2010. [facility] remote monitoring. Routine DDD Pacemaker remote. Normal device function. Battery function-Ok, 3.0 years remaining battery life to NASH. Appropriate lead measurements noted. Presenting rhythm: AP-COMPONENT LAB TECH. AP-29%, COMPONENT LAB TECH-100%. 1 Atrial high rate episode noted, iegm Atach <1 minute duration. No ventricular high rate episodes noted. Medications; Coumadin, Cozaar, Norvasc. See scanned report. Office device f/u and ROV with Dr De Leon scheduled 04/26/2025. [facility] remote f/u due in 3 months. Danelle Perez, BEE Jake De Leon MD CV CARDIAC SERVICES PROCEDURES F inal Result from Last 3 Months Insurance MEDICARE BLUE CROSS MEDICARE SUPPLEMENT MEDICARE Care Teams Legal Technician Relationship Specialty Start Date End Date Ramo Dale MD [address] [place] [address] PCP - General 06/03/10
--- OUTSIDE RECORDS SUMMARY | 2025-05-17 08:12 | XMS_ITS | Encounter Summary ---
Author Organization [facility] Address [facility] [place] [address] Care Team Providers Care Clinical Nursing Coordinator Name Role Phone Ramo Dale MD Primary Care Provider [phone] Encounter Details Date Type Department Care Team (Late st Contact Info) Description 10/31/2017 Abstract SJS CONVERSION [address] [place] [address] , Generic Conversion, Social History Tobacco Use [...] on filedocumented in this encounter Care Teams Clinical Nursing Coordinator Relationship Specialty Start Date End Date Ramo Dale MD [address] [place] [address] PCP - General INTERNAL MEDICINE 12/10/18 documented as of this encounter
[2025-05-17 08:23] LABS: Add Urine Microscopic? NO; Appearance Urine Clear (Clear); Glucose Urine UA Negative (Negative); Leukocyte Esterase Ur Negative (Negative); Nitrate Urine Negative (Negative); Specific Grav Ur 1.015 (1.010-1.020)
== END 2025-05-17 08:01 | disposition home or self-care (01) ==
PROVIDERS: PCP Internal Medicine; Visit Provider Internal Medicine
DX: N39.0 Urinary tract infection, site not specified (principal)
CPT/HCPCS: 81003; 87086

== ENCOUNTER 2025-06-05 07:58 | Outpatient (RCR) | payer MEDICARE, SELFPAY ==
[2025-04-19 09:09] LABS: INR 2.9; Partial Thromboplastin Time 41.3 Sec (23.9-30.70); Prothrombin Time 28.8 Seconds (9.50-12.1)
[2025-06-01 08:45] LABS: INR 1.8; Partial Thromboplastin Time 35.0 Sec (23.9-30.70); Prothrombin Time 18.5 Seconds (9.50-12.1)
[2025-06-05 08:44] LABS: INR 2.1; Partial Thromboplastin Time 36.2 Sec (23.9-30.70); Prothrombin Time 21.4 Seconds (9.50-12.1)
== END 2025-07-18 23:59 | disposition home or self-care (01) ==
LOC: CHSLAB 07:58
PROVIDERS: PCP Internal Medicine; Visit Provider Internal Medicine
DX: D69.6 Thrombocytopenia, unspecified (principal); Z79.01 Long term (current) use of anticoagulants
CPT/HCPCS: 36415; 85610; 85730

== ENCOUNTER 2025-06-09 11:04 | Outpatient (CLI) | payer MEDICARE, SELFPAY ==
[2025-06-09 11:21] LABS: Hematocrit 44.2 % (37.0-46.0); Hemoglobin 14.4 g/dL (12.4-15.3); Immature Platelet Fraction Pct 2.0 % (1.0-7.0); Mean Corpuscular HGB Conc 32.6 g/dL (32-36); Mean Corpuscular Hemoglobin 31.2 pg (27.0-31.0); Mean Corpuscular Volume 95.7 fL (78.0-102.0); Platelet Count Result 86 K/mm3 (150-420); Red Blood Count 4.62 M/mm3 (4.70-6.10); White Blood Count 9.4 K/mm3 (4.8-10.8)
--- OUTSIDE RECORDS SUMMARY | 2025-06-09 11:26 | XMS_ITS | Encounter Summary ---
Author Organization [facility] Address [facility] [place] [address] Care Team Providers Care Log Sorting Supervisor Name Role Phone Ramo Dale MD Primary Care Provider [phone] Encounter Details Date Type Department Care Team (Late st Contact Info) Description 10/31/2017 Abstract [facility] CONVERSION [address] [place] [address] , Generic Conversion, Social History Tobacco Use [...] on filedocumented in this encounter Care Teams Log Sorting Supervisor Relationship Specialty Start Date End Date Ramo Dale MD [address] [place] [address] PCP - General INTERNAL MEDICINE 12/10/18 documented as of this encounter
--- OUTSIDE RECORDS SUMMARY | 2025-06-09 11:26 | XMS_ITS | Clinical Summary ---
Author Organization [facility] Address [address] [place] [address] Care Team Providers Care Tire Mounter Name Role Phone Ramo Dale MD Primary [...] 1:40 PM CDT): Mild. Would not recommend GLOVE BOARDER. I spent a total of 30Face to Face minutes of which more than 50% of the time was spent in counseling and coordination of care. This time included: Discussion of GLOVE BOARDER. Risk. Indications for CHF and EF less than 30% with mild symptoms in less than 40 for moderate symptoms. In addition no good studies with patients in his age group showing benefit. Would not recommend GLOVE BOARDER at this time. 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 Better life less than 6 months. Excellent lead function. With ventricular thresholds less than 0.5 volts. Discussed need for generator change likely later this year. But not now. May have done here be will follow fall probably follow-up in [place] to do this. Chronic anticoagulation 09/28/2019 H/O: [...] (complete heart block) Pacemaker 02/27/2014 Overview (03/01/2020): [place] [employer] Dual Pacemaker. Dx; Second Degree Hb. [...] Encounters Date Type Department Care Team Description 06/08/2025 Results Follow-Up [facility] [address] [place] [phone] Usman Parks MD Transthoracic Echo (TTE) Complete W Doppler/CF 06/07/2025 3:00 PM CDT Ancillary Procedure [facility] [address] [place] [address] [place] [phone] Complete atrioventricular block (HCC) 04/26/2025 10:30 AM CDT Office Visit [facility] [address] [place] [address] [place] [phone] Usman Parks MD Complete atrioventricular block (HCC) (Primary Dx); Pacemaker [Z95.0]; PAF (paroxysmal atrial fibrillation); Primary hypertension; History of fall; History of CVA (cerebrovascular accident); History of subdural hemorrhage; Unsteady gait 04/26/2025 10:00 AM CDT Ancillary Procedure [facility] [address] [place] [phone] Pacemaker; Complete atrioventricular block (HCC) 04/26/2025 Orders Only [facility] [address] [place] [address] [place] [phone] Usman Parks MD Pacemaker (Primary Dx); Second degree AV block 04/25/2025 Telephone [facility] [address] [place] [address] [place] [phone] Usman Parks MD 04/12/2025 8:15 AM CDT Ancillary Procedure [facility] [address] [place] [address] [place] [phone] Pacemaker [Z95.0] (Primary Dx); Complete atrioventricular block (HCC); Second degree AV block; Dilated cardiomyopathy (HCC) from Last 3 Months Surgical History Surgery Date Site/Laterality Comments CRANIECTOMY FOR EXCISION OF ACOUSTIC NEUROMA Medical History Medical History Date Comments Hx Other Medical 2013 pneumonia; Comm ents: [facility] 02/27/2014 - Hx Other Medical TIA; Comments: [facility] 02/27/2014 - Seizure disorder (HCC) Seizure d [...] on file Legal 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 Gender Identity Not on file Sexual Orientation [...] 02/21/2016, 08/17 Medical Devices Implanted Type Area Hat And Cap Sewer Device Identifier Shelf Expiration Date Model / Serial / Lot Pacemaker-05/17 Implanted:05/17 (Quantity not on file) Pacemaker Chest [place] Second Degree HB [id number] / [id number] / Procedures Procedure Name Priority Date/Time Associated Diagnosis Comments TRANSTHORACIC ECHO (TTE) COMPLETE W DOPPLER/CF WO CONTRAST Routine 06/07/2025 4:34 PM CDT Complete atrioventricular block (HCC) ELECTROCARDIOGRAM REPORT Routine 04/26/2025 2:51 PM CDT Complete atrioventricular block (HCC) Pacemaker [Z95.0] DEVICE CHECK - IN OFFICE Routine 04/26/2025 9:31 AM CDT Pacemaker Complete atrioventricular block (HCC) DEVICE CHECK - REMOTE Routine 04/12/2025 11:05 AM CDT 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 Dilated cardiomyopathy (HCC) from Last 3 Months Results * TRANSTHORACIC ECHO (TTE) COMPLETE W DOPPLER/CF WO CONTRAST (06/07/2025 4:34 PM CDT) EF Mod BP 63 % CONS SCIMAGE Anatomical Region Laterality Modality Ultrasound 06/07/2025 3:10 PM CDT Narrative 06/07/2025 8:57 PM CDT [facility] [address] [facility] [address], [place] [address] [address] [facility] [address], [place] [address] P:[phone] P:[phone] Echocardiographic Report Patient Name: JAMARI PALMA T : 1940 Study Date: 06/07/2025 3:10:41 PM Sex: M Aircraft Charter Dispatcher: Le Engel)([place]), [facility] Location: ID Ref Provider: SUMAN PARKS Height(Cm): 178 BSA: 2.14 Weight(Kg): 93 Heart Rate: 62 BP: 148 / 72 Quality: Good Order Provider: USMAN PARKS PROCEDURES: Echocardiographic Report: Transthoracic echocardiogram with complete 2D, M-Mode, and color Doppler examination. With Strain Analysis. INDICATIONS: I44.2 Atrioventricular block, complete. MEASUREMENTS: 2D/MM Value Range Doppler Value Range EF Mod BP 63 % [ 52 - 72 ] JAZMIN Vmax 2.67 cm2 [ 2.00 - 4.00 ] LV GLS -17.12 % AV Mean PG 4 mmHg LVIDd 2D 3.18 cm [ 4.20 - 5.80 ] AV Peak Pavel 1.36 m/s [ 1.00 - 1.70 ] LVIDs 2D 2.07 cm [ 2.50 - 4.00 ] AV Peak PG 7 mmHg LVPWd 2D 1.28 cm [ 0.60 - 1.00 ] AV VTI 25.86 cm IVSd 2D 1.44 cm [ 0.60 - 1.00 ] LVOT Diam 2.01 cm [ 1.70 - 2.10 ] AoR Diam 2D 3.58 cm [ 3.10 - 3.70 ] LVOT Peak Pavel 1.14 m/s [ 0.70 - 1.10 ] LA Volume 44.76 ml [ 18.00 - 58.00 ] LVOT VTI 22.56 cm LA Volume Index 21 cc/m2 [ 16 - 28 ] PV Peak Pavel 0.99 m/s [ 0.40 - 0.80 ] RA Volume 22.40 ml TR Peak Pavel 2.60 m/s [ 1.00 - 2.80 ] TR Peak PG 27 mmHg RVSP 32.00 mmHg [ 10.00 - 36.00 ] RV S` 10.46 mmHg Tapse 2.28 cm [ 1.71 - 5.00 ] 2D/MM Value Range Doppler Value Range - FINDINGS: Interpretation Site: Exam was interpreted at home. Left Ventricle: Normal left ventricular size. Sigmoid hypertrophy of the septum. Normal global left ventricular systolic function. Impaired diastolic relaxation Grade I. Ejection fraction is measured at 63 %. Global Longitudinal Strain is -17 %. Right Ventricle: Normal right ventricular size. Normal right ventricular systolic function. Left Atrium: Left atrial size is within upper limits of normal. Right Atrium: The right atrium is normal in size. Atrial Septum: Normal atrial septum. Mitral Valve: Mild mitral annular calcification. Mild mitral valve regurgitation. Aortic Valve: Aortic cusps appear mildly sclerotic. Trileaflet aortic valve. Trace aortic valve regurgitation. Tricuspid Valve: Normal appearance of the tricuspid valve. Estimated peak RVSP is 32 mmHg. Mild tricuspid regurgitation. Pulmonic Valve: Normal appearance of the pulmonic valve. Mild pulmonic regurgitation. Pericardium: Normal pericardium with no significant pericardial effusion. Aorta: Mild aortic root calcification. IVC: Normal size and normal respiratory collapse consistent with normal right atrial pressure (<5 mmHg). CONCLUSIONS: Normal left ventricular size. Sigmoid hypertrophy of the septum. Normal global left ventricular systolic function. Impaired diastolic relaxation Grade I. Ejection fraction is measured at 63 %. Global Longitudinal Strain is -17 %. Normal right ventricular size and systolic function. Mild mitral annular calcification. Mild eccentric mitral valve regurgitation. Aortic cusps appear mildly sclerotic. Trileaflet aortic valve. Trace aortic valve regurgitation. No significant stenosis. Estimated RVSP 32 mmHg. Mild tricuspid regurgitation. Electronically Signed By: Usman Parks MD, [facility] 06/07/2025 8:57:34 PM CDT Procedure Note Usman Parks MD - 06/07/2025 [facility] [address] [facility] [address], [place] [address] [address] [facility] [address], [place], [place] [address] P:[phone] P:[phone] Echocardiographic Report Patient Name: JAMARI PALMA T : 1940 Study Date: 06/07/2025 3:10:41 PM Sex: M Aircraft Charter Dispatcher: Le Lo (R)([place]), [facility] Provider: USMAN PARKS Height(Cm): 178 BSA: 2.14 Weight(Kg): 93 Heart Rate: 62 BP: 148 / 72 Quality: Good Order Provider: USMAN PARKS PROCEDURES: Echocardiographic Report: Transthoracic echocardiogram with complete 2D, M-Mode, and color Dopplerexamination. With Strain Analysis. INDICATIONS: I44.2 Atrioventricular block, complete. MEASUREMENTS: 2D/MM Value Range Doppler ValueRange EF Mod BP 63 % [ 52 - 72 ] JAZMIN Vmax 2.67cm2 [ 2.00 - 4.00 ] LV GLS -17.12 % AV Mean PG 4mmHg LVIDd 2D 3.18 cm [ 4.20 - 5.80 ] AV Peak Pavel 1.36m/s [ 1.00 - 1.70 ] LVIDs 2D 2.07 cm [ 2.50 - 4.00 ] AV Peak PG 7mmHg LVPWd 2D 1.28 cm [ 0.60 - 1.00 ] AV VTI 25.86cm IVSd 2D 1.44 cm [ 0.60 - 1.00 ] LVOT Diam 2.01cm [ 1.70 - 2.10 ] AoR Diam 2D 3.58 cm [ 3.10 - 3.70 ] LVOT Peak Pavel 1.14m/s [ 0.70 - 1.10 ] LA Volume 44.76 ml [ 18.00 - 58.00 ] LVOT VTI 22.56cm LA Volume Index 21 cc/m2 [ 16 - 28 ] PV Peak Pavel 0.99m/s [ 0.40 - 0.80 ] RA Volume 22.40 ml TR Peak Pavel 2.60m/s [ 1.00 - 2.80 ] TR Peak PG 27 mmHg RVSP 32.00 mmHg [ 10.00 - 36.00 ] RV S` 10.46 mmHg Tapse 2.28 cm [ 1.71 - 5.00 ] 2D/MM Value Range Doppler ValueRange - FINDINGS: Interpretation Site: Exam was interpreted at home. Left Ventricle: Normal left ventricular size. Sigmoid hypertrophy of the septum. Normalglobal left ventricular systolic function. Impaired diastolic relaxation Grade I.Ejection fraction is measured at 63 %. Global Longitudinal Strain is -17 %. Right Ventricle: Normal right ventricular size. Normal right ventricular systolicfunction. Left Atrium: Left atrial size is within upper limits of normal. Right Atrium: The right atrium is normal in size. Atrial Septum: Normal atrial septum. Mitral Valve: Mild mitral annular calcification. Mild mitral valve regurgitation. Aortic Valve: Aortic cusps appear mildly sclerotic. Trileaflet aortic valve. Traceaortic valve regurgitation. Tricuspid Valve: Normal appearance of the tricuspid valve. Estimated peak RVSP is 32 mmHg.Mild tricuspid regurgitation. Pulmonic Valve: Normal appearance of the pulmonic valve. Mild pulmonic regurgitation. Pericardium: Normal pericardium with no significant pericardial effusion. Aorta: Mild aortic root calcification. IVC: Normal size and normal respiratory collapse consistent with normal rightatrial pressure (<5 mmHg). CONCLUSIONS: Normal left ventricular size. Sigmoid hypertrophy of the septum. Normalglobal left ventricular systolic function. Impaired diastolic relaxation Grade I.Ejection fraction is measured at 63 %. Global Longitudinal Strain is -17 %. Normal right ventricular size and systolic function. Mild mitral annular calcification. Mild eccentric mitral valveregurgitation. Aortic cusps appear mildly sclerotic. Trileaflet aortic valve. Traceaortic valve regurgitation. No significant stenosis. Estimated RVSP 32 mmHg. Mild tricuspid regurgitation. Electronically Signed By: Usman Parks MD, [facility] 06/07/2025 8:57:[address] [facility] Usman Parks MD CV ECHO PROCEDURES Final Result * Electrocardiogram Report (04/26/2025 2:51 PM CDT) Usman Parks MD ECG ORDERABLES Final Result * DEVICE CHECK - IN OFFICE (04/26/2025 9:31 AM CDT) Anatomical Region Laterality Modality Other Narrative 04/27/2025 2:54 PM CDT [place] [employer] Dual Pacemaker. Dx; Second Degree Hb. Gen change 03/01/2020-[facility], chronic leads 05/31/2010. Latitude remote monitoring. Supervising MD: Dr Parks. Office DDD Pacemaker evaluation demonstrated appropriate device function. Left pectoral incision well approximated without signs of infection noted. Battery function-Ok, 2.5 years remaining battery life to NASH. Appropriate lead measurements noted. Presenting rhythm-ASVP. Underlying rhythm-Second Degree AVB. Consider Pacemaker Dependent. AP-30%, MILLINERY BLOCKER-100%. 36 mode switch episodes recorded, longest duration [...] Office pacemaker f/u and ROV with Dr Parks scheduled 05/30/2026. Latitude remote f/u 08/02/2025. Danelle Perez, RN Ibeth Trujillo NP CV CARDIAC SERVICES PROCEDUR ES Final Result * DEVICE CHECK - REMOTE (04/12/2025 11:05 AM CDT) Anatomical Region Laterality Modality Other Narrative 04/21/2025 4:45 PM CDT [place] [employer] Dual Pacemaker. Dx; Second Degree Hb. Gen change 03/01/2020-[facility], chronic leads 05/31/2010. Latitude remote monitoring. Routine DDD Pacemaker remote. Normal device function. Battery function-Ok, 3.0 years remaining battery life to NASH. Appropriate lead measurements noted. Presenting rhythm: AP-MILLINERY BLOCKER. AP-29%, MILLINERY BLOCKER-100%. 1 Atrial high rate episode noted, iegm Atach <1 minute duration. No ventricular high rate episodes noted. Medications; Coumadin, Cozaar, Norvasc. See scanned report. Office device f/u and ROV with Dr Parks scheduled 04/26/2025. Latitude remote f/u due in 3 months. Danelle Perez RN Usman Parks MD CV CARDIAC SERVICES PROCEDURES F inal Result from Last 3 Months Insurance MEDICARE [facility] MEDICARE SUPPLEMENT MEDICARE Care Teams Tire Mounter Relationship Specialty Start Date End Date Ramo Dale MD [address] [place] [address] PCP - General 06/03/10
--- OUTSIDE RECORDS SUMMARY | 2025-06-09 11:26 | XMS_ITS | Clinical Summary ---
Author Organization [facility] Address [address] [place] [address] Care Team Providers Care Central Melt Specialist Name Role Phone Ramo Dale MD Primary Care Provider [phone] Allergies No known active allergies Medications Cyanocobalamin [...] drink = 0.6 oz pur e alcohol) [facility] Utilities Answer Date Recorded In the past 12 months has e [employer], gas, oil, or water [employer] threatened to shut off services in your [...] or ex-partner? No 10/06/2023 Social Connection and Isolation Panel Answer Date Recorded In a typical week, [...] any clubs o r organizations such as spiritism groups, unions, fraternal or athletic groups, or [...] care, and heating? Not very hard 10/06/2023 [facility] - Occupational Stress Questionnaire Answer Date Recorded [...] place to sleep or slept in a alf (including now)? No 10/06/2023 Sex and Gender Information Value Date Recorded Sex Assigned at Not on file Legal Sex Male 9:18 PM CDT Gender Identity Not on file Sexual Orientation Not on file Last Filed Vital Signs Vital Sign Reading Time Taken Comments Blood Pressure 114/67 10/13/2023 11:45 AM MOTEL CLERK Pulse 81 10/13/2023 11:45 AM MOTEL CLERK Temperature 36.9 C (98.4 F) 10/13/2023 7:55 AM MOTEL CLERK Respiratory Rate 18 10/12/2023 2:06 PM MOTEL CLERK Oxygen Saturation 97% 10/13/2023 11:45 AM MOTEL CLERK Inhaled Oxygen Concentration - - Weight 99.5 kg (219 lb 5.7 oz) 10/08/2023 4:33 A M MOTEL CLERK Height 185.4 cm (6' 1) 10/06/2023 9:59 AM MOTEL CLERK Body Mass Index 28.94 10/06/2023 9:59 AM MOTEL CLERK Plan of Treatment Health Maintenance Due Date Last Done Comments Annual Medicare Wellness Visit 2004 COVID-19 Vaccine ( season) 2025 05/24/2023, 04/28/2022, 11/30/2021, Additional history exists Influenza Adult (#1) 2025 04/24/2022, 04/24/2021, 05/04/2020, Additional history exists DTaP, Tdap and Td Vaccines (3 - Td or Tdap) 10/06/2033 10/06/2023, 09/30/2019 Pneumococcal Vaccine: 50+ Years Completed 02/21/2016, 08/31/2014 RSV Immunization or 60+ Years Completed 06/07/2023 Zoster Vaccines Completed 07/12/2023, 05/03/2023 Hepatitis A Vaccines Aged Out No long er eligible based on patient's age to complete this topic Meningococcal B Vaccine Aged Out No l [...] goals and wishes for treatment Lifestyle No Pruitt, Sylvie F, RN Medical Devices Implanted Type Area Driver Trainee Device Identifier Shelf Expiration Date Model / Serial / Lot Ra Lead- 0 Implanted:Qty: 1 on 05/31/2010 Lead Implant Right: Atrium [employer] [id number] / [id number] / Description:LEAD IS NOT MR C ONDITIONAL Rv Lead- 0 Implanted:Qty: 1 on 05/31/2010 Lead Implant Right: Ventricle [employer] [id number] / [id number] / Description:LEAD IS NOT MR C ONDITIONAL Pacemaker-03/01 Implanted:Qty: 1 on 03/01/2020 Pacemaker [employer] [id number] / [id number] / Description:DEVICE IS NOT MR CONDITIONAL ( LEADS ARE NOT MR CONDITIONAL) Insurance MEDICARE [facility] MEDICARE [place] [employer] [facility] Advance Directives * Full Code (Latest Code Status on File) Date Activated Date Inactivated Comments 10/06/2023 5:32 PM 10/13/2023 3:33 PM * Full Code Date Activated Date Inactivated Comments 10/06/2023 5:32 PM 10/06/2023 5:32 PM Care Teams Central Melt Specialist Relationship Specialty Start Date End Date Ramo Dale MD [address] [place] [address] PCP - General INTERNAL MEDICINE 12/10/18
--- OUTSIDE RECORDS SUMMARY | 2025-06-09 11:26 | XMS_ITS | Encounter Summary ---
Author Organization [facility] Healthcare Address [address] [place] [address] Care Team Providers Care Finish Production Manager Name Role Phone Ramo Dale MD Primary Care Provider [phone] Encounter Details Date Type Department Care Team (Latest Contact Info) Description 06/08/2025 Results Follow-Up [facility] Medical Group Cardiology [address] [place] [phone] [place] [address] [place] [address] [address] [place], [place] [id number] Transthoracic Echo (TTE) Complete W Doppler/CF Social History Tobacco Use Types Packs/Day Years Used Date Smoking Tobacco: Former Smokeless Tobacco: Never Alcohol Use Standard Drinks/Week Comments No 0 (1 standard drink = 0.6 oz pur e alcohol) Sex and Gender Information Value Date Recorded Sex Assigned at Not on file 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 documented in this encounter Plan of Treatment Not on file documented as of this encounter Visit Diagnoses Not on filedocumented in this encounter Care Teams Finish Production Manager Relationship Specialty Start Date End Date Ramo Dale MD [address] [place], [place] [id number] PCP - General 06/03/10 documented as of this encounter
[2025-06-09 11:33] LABS: Add Urine Microscopic? YES; Appearance Urine Clear (Clear); Glucose Urine UA Negative (Negative); Leukocyte Esterase Ur Trace (Negative); Nitrate Urine Negative (Negative); Specific Grav Ur 1.010 (1.010-1.020)
[2025-06-09 12:20] LABS: Alanine Aminotransferase 25 U/L (6-50); Albumin Level 4.5 g/dL (3.5-5.1); Alkaline Phosphatase 95 U/L (38-126); Anion Gap 9 mmol/L (4-12); Aspartate Amino Transferase 33 U/L (17-59); Bilirubin,Total 0.5 mg/dL (0.2-1.3); Blood Urea Nitrogen 19 mg/dL (9-20); Calcium 9.7 mg/dL (8.4-10.2); Carbon Dioxide 29 mmol/L (22-30); Chloride 105 mmol/L (98-107); Estimated Glomerular Filt Rate 59; Glucose 102 mg/dL (65-110); Osmolality Calculated 298 mOsm/kg (285-295); Potassium 4.5 mmol/L (3.4-5.0); Sodium 143 mmol/L (137-145); Total Protein 8.3 g/dL (6.3-8.2)
[2025-06-09 12:51] LABS: Prostate Specific Antigen 0.7 ng/mL (< OR = 4.0)
== END 2025-06-09 11:05 | disposition home or self-care (01) ==
PROVIDERS: PCP Internal Medicine; Visit Provider Internal Medicine
DX: N41.0 Acute prostatitis (principal)
CPT/HCPCS: 36415; 80053; 81001; 84153; 85027; 85055; 87086

== ENCOUNTER 2025-07-04 08:59 | Outpatient (CLI) | payer MEDICARE, SELFPAY ==
[2025-07-04 09:13] LABS: Hematocrit 43.0 % (37.0-46.0); Hemoglobin 13.8 g/dL (12.4-15.3); Immature Platelet Fraction Pct 1.8 % (1.0-7.0); Mean Corpuscular HGB Conc 32.1 g/dL (32-36); Mean Corpuscular Hemoglobin 30.9 pg (27.0-31.0); Mean Corpuscular Volume 96.4 fL (78.0-102.0); Platelet Count Result 99 K/mm3 (150-420); Red Blood Count 4.46 M/mm3 (4.70-6.10); White Blood Count 8.2 K/mm3 (4.8-10.8)
[2025-07-04 09:31] LABS: INR 2.1; Prothrombin Time 21.6 Seconds (9.50-12.1)
== END 2025-07-04 09:00 | disposition home or self-care (01) ==
PROVIDERS: PCP Internal Medicine; Visit Provider Internal Medicine
DX: D69.6 Thrombocytopenia, unspecified (principal)
CPT/HCPCS: 36415; 85027; 85055; 85610

== ENCOUNTER 2025-07-28 10:00 | Outpatient (CLI) | payer MEDICARE, SELFPAY ==
[2025-07-28 10:14] LABS: Hematocrit 42.0 % (37.0-46.0); Hemoglobin 13.6 g/dL (12.4-15.3); Mean Corpuscular HGB Conc 32.4 g/dL (32-36); Mean Corpuscular Hemoglobin 30.9 pg (27.0-31.0); Mean Corpuscular Volume 95.5 fL (78.0-102.0); Platelet Count Result 89 K/mm3 (150-420); Red Blood Count 4.40 M/mm3 (4.70-6.10); White Blood Count 9.4 K/mm3 (4.8-10.8)
[2025-07-28 10:38] LABS: INR 2.1; Prothrombin Time 21.8 Seconds (9.50-12.1)
== END 2025-07-28 10:01 | disposition home or self-care (01) ==
PROVIDERS: PCP Internal Medicine; Visit Provider Internal Medicine
DX: Z79.01 Long term (current) use of anticoagulants (principal)
CPT/HCPCS: 36415; 85027; 85610